=== PATIENT | female | born 1995 | race American Indian/Alaskan Native ===

== ENCOUNTER 2018-12-10 09:33 | Emergency (ER) | payer SELFPAY ==
[2018-12-10 09:42] VITALS: BP 133/74
--- NOTE | 2018-12-10 10:24 | Emergency Department Report ---
Abscess Boil HPI - HPI Chief Complaint: Skin/Abscess/Foreign Body Stated Complaint: RISING BUTTOCK/PAIN Time Seen by Provider: 12/10/18 10:23 Duration: 1 Week Location: Perianal Severity: Mild History: Yes Pain, Yes Previous History, No Fever, No Purulent Drainage, No Numbness, No Foreign Body, No Insect Bite HPI: This is a 23-year-old female who presents to ED with left-sided in the buttock pain and swelling for the past week. Patient denies fevers/chills/nausea vomiting. Patient states that the ball was getting bigger and worsening pain Home Medications: Previous Rx's Medication Instructions Recorded Last Taken Type Clindamycin [Clindamycin CAP] 300 mg PO Q8H #21 cap 12/10/18 Unknown Rx Ibuprofen [Motrin 800 MG tab] 800 mg PO Q8HR PRN #30 tablet 12/10/18 Unknown Rx Allergies/Adverse Reactions: Allergies Allergy/AdvReac Type Severity Reaction Status Date / Time No Known Allergies Allergy Unverified 12/10/18 09:39 ED Review of Systems ROS: Stated complaint: RISING BUTTOCK/PAIN Other details as noted in HPI Comment: All other systems reviewed and negative ED Past Medical Hx - Past Medical History Previous Medical History?: No - Surgical History Past Surgical History?: No - Social History Smoking Status: Never Smoker Substance Use Type: Alcohol, Marijuana - Medications Home Medications: Home Medications Medication Instructions Recorded Confirmed Last Taken Type Clindamycin [Clindamycin CAP] 300 mg PO Q8H #21 cap 12/10/18 Unknown Rx Ibuprofen [Motrin 800 MG tab] 800 mg PO Q8HR PRN #30 tablet 12/10/18 Unknown Rx ED Abscess Boil Physical Exam - Exam General: Vital signs noted. No distress. Alert and acting appropriately. Size: 3 cm Exam: Yes Tenderness, Yes Fluctuance, No Surrounding Cellulites/Erythema, No Lymphangitis, No Crepitation, No Heart Murmur, No Normal Neurologic Exam I & D Note - I & D Note I & D Note: Patient positioned appropriately, 3cc lidocaine with/without epinephrine was used as a local anesthetic. #11 blade scalpal used for single incision. Additional local anesthetic injected into surrounding viable tissue prior to blunt dissection of loculated adhesions. Copius drainage of pus obtained). . Procedure tolerated without complications. ED Course Vital Signs 11/03/19 09:39 Temperature 97.9 F Pulse Rate 104 H Respiratory 20 Rate Blood Pressure 133/74 O2 Sat by Pulse 96 Oximetry Critical care attestation.: If time is entered above; I have spent that time in minutes in the direct care of this critically ill patient, excluding procedure time. ED Medical Decision Making - Medical Decision Making 23-year-old female presents with left buttock abscess. See ID note. Patient tolerated procedure well. She received pain medication in the ED Patient is to go home on a trial of antibiotics and pain medication. Discussed the patient follow-up with primary care physician Referrals given to patient. Vital signs are stable patient is in no acute distress ED Disposition Clinical Impression: Abscess, Left buttock abscess Disposition: TO HOME OR SELFCARE Is pt being admited?: No Does the pt Need Aspirin: No Condition: Stable Instructions: Abscess (ED), Abscess Incision and Drainage (ED) Additional Instructions: Make sure to follow up with the primary care physician as discussed. Take all your medications as you've been prescribed. If you have any worsening symptoms or develop new symptoms please return to ED immediately. Referrals: [facility] [Outside] - 3-5 Days [facility] [Outside] - 3-5 Days Forms: Accompanied Note, Work/School Release Form(ED) Time of Disposition: 12:31
[2018-12-10] MEDS ORDERED: HYDROcodone/ACETAMINOPHEN 5-325 MG TAB PO ONE (10:42)
[2018-12-10] MEDS ORDERED: LIDOCAINE (1%) 10 MG/1 ML VIAL 20 ML MDV INFILTRATI NR (11:00)
== END 2018-12-10 13:00 | disposition home or self-care (01) ==
LOC: ED 09:33
DX: L02.31 Cutaneous abscess of buttock (principal); F12.10 Cannabis abuse, uncomplicated; Z79.899 Other long term (current) drug therapy

== ENCOUNTER 2020-09-09 10:35 | Inpatient (IN) | payer OTHER ==
[2020-09-09] MEDS ORDERED: MAGNESIUM SULFATE 2 GM/50 ML BAG IV ONE ×2 (10:49→10:50)
[2020-09-09] MEDS ORDERED: SODIUM CHLORIDE 0.9% 1000 ML 1,000 ML IV ONE ×2 (10:49→11:38)
[2020-09-09] MEDS ORDERED: NORepinephrine/NS 4 MG-250 ML 4 MG/250 ML BAG IV ONE (10:59)
[2020-09-09] MEDS: NORepinephrine/NS 4 MG-250 ML 4 MG/250 ML BAG IV SCH ×2 (11:05→17:31)
[2020-09-09 11:21] LABS: Hematocrit 37.1 % (30.3-42.9); Hemoglobin 11.6 gm/dl (10.1-14.3); Mean Corpuscular HGB Conc 31 % (30-34); Mean Corpuscular Volume 100 fl (79-97); Platelet Count 191 K/mm3 (140-440); Red Blood Count 3.73 M/mm3 (3.65-5.03)
[2020-09-09 11:32] LABS: INR 1.57 (0.87-1.13)
[2020-09-09 11:33] LABS: Partial Thromboplastin Time 42.5 Sec. (24.2-36.6)
--- NOTE | 2020-09-09 11:34 | Emergency Department Report ---
ED CPR HPI - General Stated Complaint: CARDIAC ARREST Time Seen by Provider: 09/09/20 10:49 Source: family, EMS Mode of arrival: Stretcher Limitations: Altered Mental Status, Physical Limitation - History of Present Illness Initial Comments: 25-year-old female the past medical history of asthma presents to the hospital status post cardiopulmonary arrest. History of present illness obtained from EMS and patient's tim. Last night patient's tim got a call that she was "drunk" at work. Tim obtain a video with patient appearing to be intoxicated with intermittent staring off and falling asleep upright with decreased responsiveness. Patient apparently admitted to drinking alcohol as well as taking ecstasy which she has taken in the past however, has not had this response before. EMS was called by tim last night who came to the scene, was reported she had a elevated blood pressure, and patient answer orientation questions correctly and refused transport to the hospital. Throughout the night patient was snoring and sleeping heavily. Tim checked on her frequently. At 6 AM she noticed a lot of "snot" coming out of her nose and down her neck. Patient her that she showed me appears to be more like fluid. She wiped the area and patient went back to sleep. Patient had a recurrent episode of "snot" at 7 AM. Once again she wiped the area. Tim heard her stop breathing, went to check on her, and found her apneic and pulseless. EMS was called. Patient was in at the scene at 10 AM. She is initially treated with intubation with 7.0 ET tube, Narcan 4 mg, dextrose 25 for low blood sugar, and 50 mg of sodium bicarb. At 10:10 patient received 200 J of voltage for V. fib with return of circulation and pulse at 10:18 AM. Upon arrival patient has intermittent agonal breathing, fixed and dilated pupils, sinus bradycardic rhythm, and is hypot ensive. Stabilization efforts continued. According to tim patient does not have any respiratory symptoms, shortness of breath, chest pain, cough or cold symptoms, nausea, vomiting, diarrhea, and did not receive her Covid vaccine. - Related Data Previous Rx's Medication Instructions Recorded Last Taken Type Ibuprofen [Motrin 800 MG tab] 800 mg PO Q8HR PRN #30 tablet 12/10/18 Unknown Rx Allergies Allergy/AdvReac Type Severity Reaction Status Date / Time No Known Allergies Allergy Unverified 12/10/18 09:39 ED Review of Systems ROS: Stated complaint: CARDIAC ARREST Other details as noted in HPI ED Past Medical Hx - Social History Smoking Status: Never Smoker Substance Use Type: Alcohol, Marijuana - Medications Home Medications: Home Medications Medication Instructions Recorded Confirmed Last Taken Type Ibuprofen [Motrin 800 MG tab] 800 mg PO Q8HR PRN #30 tablet 12/10/18 09/09/20 Unknown Rx ED Physical Exam - Other Other exam information: General: Unresponsive Head: Atraumatic Eyes: Pupils fixed and dilated ENT: Moist mucous membranes, orally intubated with 7.0 ET tube Neck: Normal appearance, no midline tenderness Chest: Intermittent agonal respiration CV: Bradycardia regular rhythm Abdomen: Soft, nondistended Back: Normal inspection Extremity: No deformity, no spontaneous movement Neuro: GCS equals 3 Skin: No rash ED Course Vital Signs 09/09/20 09/09/20 09/09/20 12:38 12:39 12:46 Temperature Pulse Rate 52 L 53 L 49 L Respiratory 4 L 13 10 L Rate Blood Pressure 129/83 132/78 Blood Pressure [Left] O2 Sat by Pulse 100 100 100 Oximetry 09/09/20 09/09/20 09/09/20 13:00 13:16 13:18 Temperature 86.1 F L Pulse Rate 58 L 52 L Respiratory 11 L 11 L Rate Blood Pressure 112/69 111/72 Blood Pressure [Left] O2 Sat by Pulse 100 100 Oximetry 09/09/20 09/09/20 09/09/20 13:30 13:46 14:00 Temperature Pulse Rate 64 65 68 Respiratory 12 11 L 18 Rate Blood Pressure 111/72 108/75 115/80 Blood Pressure [Left] O2 Sat by Pulse 100 100 100 Oximetry 09/09/20 09/09/20 09/09/20 14:16 15:00 15:30 Temperature Pulse Rate 69 69 70 Respiratory 21 28 H 17 Rate Blood Pressure 107/72 113/77 116/86 Blood Pressure [Left] O2 Sat by Pulse 100 100 100 Oximetry 09/09/20 09/09/20 09/09/20 15:40 15:46 16:00 Temperature Pulse Rate 73 75 73 Respiratory 1 L 20 28 H Rate Blood Pressure 116/86 118/89 109/88 Blood Pressure [Left] O2 Sat by Pulse 100 100 100 Oximetry 08/04/2709/09/20 09/09/20 16:16 17:00 17:16 Temperature Pulse Rate 74 79 79 Respiratory 28 H 21 28 H Rate Blood Pressure 117/85 130/76 132/69 Blood Pressure [Left] O2 Sat by Pulse 100 100 99 Oximetry 09/09/20 09/09/20 09/09/20 17:33 17:35 17:46 Temperature 93.6 F L Pulse Rate 80 Respiratory 28 H Rate Blood Pressure 109/76 Blood Pressure [Left] O2 Sat by Pulse 99 100 Oximetry 09/09/20 09/09/20 09/09/20 17:56 18:00 18:30 Temperature Pulse Rate 81 84 Respiratory 25 H 25 H Rate Blood Pressure 102/65 97/66 Blood Pressure [Left] O2 Sat by Pulse 100 99 100 Oximetry 09/09/20 09/09/20 09/09/20 18:46 19:00 19:16 Temperature Pulse Rate 85 83 84 Respiratory 25 H 25 H 25 H Rate Blood Pressure 93/58 89/55 99/58 Blood Pressure [Left] O2 Sat by Pulse 100 100 100 Oximetry 09/09/20 09/09/20 09/09/20 19:30 19:34 19:46 Temperature Pulse Rate 85 86 86 Respiratory 25 H 19 Rate Blood Pressure 99/58 94/58 94/58 Blood Pressure [Left] O2 Sat by Pulse 100 100 99 Oximetry 09/09/20 09/09/20 09/09/20 20:00 20:16 20:30 Temperature Pulse Rate 88 87 90 Respiratory 25 H 25 H 25 H Rate Blood Pressure 90/57 87/53 87/53 Blood Pressure [Left] O2 Sat by Pulse 99 99 99 Oximetry 09/09/20 09/09/20 09/09/20 20:46 20:48 21:00 Temperature Pulse Rate 89 91 H 89 Respiratory 25 H 25 H 25 H Rate Blood Pressure 93/58 93/58 94/58 Blood Pressure [Left] O2 Sat by Pulse 100 100 100 Oximetry 09/09/20 09/09/20 09/09/20 21:16 21:30 21:46 Temperature Pulse Rate 90 89 91 H Respiratory 25 H 25 H 25 H Rate Blood Pressure 90/46 90/46 95/56 Blood Pressure [Left] O2 Sat by Pulse 100 100 100 Oximetry 08/03/21 08/03/21 08/03/21 22:00 22:16 22:30 Temperature Pulse Rate 89 89 90 Respiratory 25 H 25 H 25 H Rate Blood Pressure 90/53 89/52 89/52 Blood Pressure [Left] O2 Sat by Pulse 100 100 100 Oximetry 09/09/20 09/09/20 09/09/20 22:46 23:00 23:16 Temperature Pulse Rate 89 88 89 Respiratory 25 H 25 H 25 H Rate Blood Pressure 99/58 94/54 96/58 Blood Pressure [Left] O2 Sat by Pulse 100 100 100 Oximetry 09/09/20 09/09/20 09/09/20 23:30 23:45 23:59 Temperature Pulse Rate 88 87 Respiratory 25 H Rate Blood Pressure 96/58 96/58 101/58 Blood Pressure [Left] O2 Sat by Pulse 100 99 99 Oximetry 09/10/20 09/10/20 09/10/20 00:01 00:15 00:31 Temperature Pulse Rate 88 88 89 Respiratory 24 25 H 24 Rate Blood Pressure 101/58 96/58 96/58 Blood Pressure [Left] O2 Sat by Pulse 98 98 98 Oximetry 09/10/20 09/10/20 09/10/20 00:45 01:01 01:02 Temperature 97.9 F Pulse Rate 91 H 89 Respiratory 25 H 24 Rate Blood Pressure 92/54 91/59 Blood Pressure [Left] O2 Sat by Pulse 98 99 Oximetry 09/10/20 09/10/20 09/10/20 01:15 01:31 01:43 Temperature Pulse Rate 90 88 Respiratory 25 H 25 H Rate Blood Pressure 101/57 101/57 Blood Pressure [Left] O2 Sat by Pulse 99 99 100 Oximetry 09/10/20 09/10/20 09/10/20 01:45 02:01 02:15 Temperature Pulse Rate 90 89 90 Respiratory 25 H 25 H 25 H Rate Blood Pressure 100/59 100/57 104/57 Blood Pressure [Left] O2 Sat by Pulse 99 99 99 Oximetry 09/10/20 09/10/20 09/10/20 02:31 02:45 03:01 Temperature Pulse Rate 91 H 89 90 Respiratory 25 H 25 H 25 H Rate Blood Pressure 104/57 105/60 106/61 Blood Pressure [Left] O2 Sat by Pulse 99 99 99 Oximetry 09/10/20 09/10/20 09/10/20 03:15 03:31 03:45 Temperature Pulse Rate 90 89 90 Respiratory 25 H 25 H 25 H Rate Blood Pressure 105/59 105/59 96/58 Blood Pressure [Left] O2 Sat by Pulse 99 99 99 Oximetry 09/10/20 09/10/20 09/10/20 04:01 04:15 04:17 Temperature Pulse Rate 88 90 90 Respiratory 25 H 25 H Rate Blood Pressure 105/59 103/56 103/56 Blood Pressure [Left] O2 Sat by Pulse 99 99 99 Oximetry 09/10/20 09/10/20 09/10/20 04:31 04:45 05:01 Temperature Pulse Rate 91 H 83 90 Respiratory 25 H 21 25 H Rate Blood Pressure 103/56 110/59 105/59 Blood Pressure [Left] O2 Sat by Pulse 100 99 99 Oximetry 09/10/20 09/10/20 09/10/20 05:15 05:31 05:45 Temperature Pulse Rate 87 90 91 H Respiratory 25 H 25 H 25 H Rate Blood Pressure 102/57 110/59 113/59 Blood Pressure [Left] O2 Sat by Pulse 99 99 98 Oximetry 09/10/20 09/10/20 09/10/20 06:01 06:15 06:31 Temperature Pulse Rate 90 88 105 H Respiratory 25 H 25 H 22 Rate Blood Pressure 113/59 110/54 110/54 Blood Pressure [Left] O2 Sat by Pulse 98 98 94 Oximetry 09/10/20 09/10/20 09/10/20 06:45 07:01 07:15 Temperature Pulse Rate 88 96 H 93 H Respiratory 20 25 H 25 H Rate Blood Pressure 127/59 125/66 103/58 Blood Pressure [Left] O2 Sat by Pulse 88 90 93 Oximetry 09/10/20 09/10/20 09/10/20 07:31 07:45 08:01 Temperature Pulse Rate 90 87 87 Respiratory 25 H 16 25 H Rate Blood Pressure 103/58 106/58 115/55 Blood Pressure [Left] O2 Sat by Pulse 95 98 97 Oximetry 09/10/20 09/10/20 09/10/20 09:08 09:13 09:54 Temperature Pulse Rate 83 84 Respiratory 25 H 25 H Rate Blood Pressure 107/49 Blood Pressure 107/49 [Left] O2 Sat by Pulse 97 97 Oximetry 09/10/20 09/10/20 09/10/20 10:00 10:16 10:31 Temperature Pulse Rate 79 99 H 87 Respiratory 25 H Rate Blood Pressure 124/49 Blood Pressure [Left] O2 Sat by Pulse 95 Oximetry - Reevaluation(s) Reevaluation #1: 09/09/20 11:00 Initial EKG showed sinus rhythm rate 61 with prolonged QT interval. QTc 639. 2 mg IV magnesium initiated. Patient prepped for central line with right femoral central line placed without complication. Patient treated initial fluid boluses, Levophed support, and placed on ventilator 09/09/20 11:42 I spoke extensively to patient's fianc and mother to obtain additional history of present illness. I also updated them about patient's critical status. The fact that she has fixed and dilated pupils is a poor neurologic predictive factor. They were informed of patient may possibly be brain . Also the fact that patient requires ventilator/respiratory and vasopressor support also poor prognostic factors with high risk of mortality. - Central Line Placement Right Femoral Consent Obtained: emergent situation Time Out Performed: Yes Patient Placed on Monitor/Pulse Ox: Yes MD Prep: mask, gown, gloves Central Line Prep: Chlorhexidine scrub Local Anesthesia Used: Lidocaine 1% Amount of Anesthesia Used (mls): 5 Ultrasound Used for Placement: No Central Line Lumen Inserted: triple Reason for Insertion: Volume Resuscitation Bloods Obtained for Lab: No Central Line Position: good blood return, sutured in place with nyl Dressing Applied: Tegaderm Patient Tolerated Procedure: well ED Medical Decision Making - Lab Data Result diagrams: 09/13/20 04:45 09/13/20 04:45 Lab Results 09/09/20 09/09/20 09/09/20 Range/Units 10:42 10:42 10:42 WBC 9.7 (4.5-11.0) K/mm3 RBC 3.73 (3.65-5.03) M/mm3 Hgb 11.6 (10.1-14.3) gm/dl Hct 37.1 (30.3-42.9) % MCV 100 H (79-97) fl MCH 31 (28-32) pg MCHC 31 (30-34) % RDW 15.0 (13.2-15.2) % Plt Count 191 (140-440) K/mm3 PT (12.2-14.9) Sec. INR (0.87-1.13) APTT (24.2-36.6) Sec. ABG pH (7.350-7.450) pH Units ABG pCO2 mm Hg ABG pO2 (80.0-90.0) mm Hg ABG HCO3 (20.0-26.0) mmol/L ABG O2 Saturation (95.0-99.0) % ABG O2 Content (0.0-44) ABG Base Excess (-2.0-3.0) mmol/L ABG Hemoglobin (12.0-16.0) gm/dl ABG Carboxyhemoglobin (0.0-5.0) % ABG Methemoglobin (0.0-1.5) % Oxyhemoglobin (95.0-99.0) % FiO2 % Sodium 144 (137-145) mmol/L Potassium 5.4 H (3.6-5.0) mmol/L Chloride 99.4 (98-107) mmol/L Carbon Dioxide 17 L (22-30) mmol/L Anion Gap 33 mmol/L BUN 25 H (7-17) mg/dL Creatinine 2.5 H (0.6-1.2) mg/dL Estimated GFR 28 ml/min BUN/Creatinine Ratio 10 % Glucose 205 H (65-100) mg/dL POC Glucose (70-105) mg/dL Lactic Acid (0.7-2.0) mmol/L Calcium 8.5 (8.4-10.2) mg/dL Magnesium (1.7-2.3) mg/dL Total Bilirubin 0.20 (0.1-1.2) mg/dL AST 60 H (5-40) units/L ALT 46 (7-56) units/L Alkaline Phosphatase 90 (35-129) units/L Total Creatine Kinase (30-135) units/L CK-MB (CK-2) (0.0-4.0) ng/mL CK-MB (CK-2) Rel Index (0-4) Troponin T 0.092 H (0.00-0.029) ng/mL Total Protein 5.3 L (6.3-8.2) g/dL Albumin 3.0 L (3.9-5) g/dL Albumin/Globulin Ratio 1.3 % HCG, Qual Negative (Negative) Salicylates (2.8-20.0) mg/dL Acetaminophen (10.0-30.0) ug/mL Plasma/Serum Alcohol (0-0.07) % 09/09/20 09/09/20 09/09/20 Range/Units 10:42 10:42 10:42 WBC (4.5-11.0) K/mm3 RBC (3.65-5.03) M/mm3 Hgb (10.1-14.3) gm/dl Hct (30.3-42.9) % MCV (79-97) fl MCH (28-32) pg MCHC (30-34) % RDW (13.2-15.2) % Plt Count (140-440) K/mm3 PT 19.2 H (12.2-14.9) Sec. INR 1.57 H (0.87-1.13) APTT 42.5 H (24.2-36.6) Sec. ABG pH (7.350-7.450) pH Units ABG pCO2 mm Hg ABG pO2 (80.0-90.0) mm Hg ABG HCO3 (20.0-26.0) mmol/L ABG O2 Saturation (95.0-99.0) % ABG O2 Content (0.0-44) ABG Base Excess (-2.0-3.0) mmol/L ABG Hemoglobin (12.0-16.0) gm/dl ABG Carboxyhemoglobin (0.0-5.0) % ABG Methemoglobin (0.0-1.5) % Oxyhemoglobin (95.0-99.0) % FiO2 % Sodium (137-145) mmol/L Potassium (3.6-5.0) mmol/L Chloride (98-107) mmol/L Carbon Dioxide (22-30) mmol/L Anion Gap mmol/L BUN (7-17) mg/dL Creatinine (0.6-1.2) mg/dL Estimated GFR ml/min BUN/Creatinine Ratio % Glucose (65-100) mg/dL POC Glucose (70-105) mg/dL Lactic Acid 16.60 H* (0.7-2.0) mmol/L Calcium (8.4-10.2) mg/dL Magnesium 3.30 H (1.7-2.3) mg/dL Total Bilirubin (0.1-1.2) mg/dL AST (5-40) units/L ALT (7-56) units/L Alkaline Phosphatase (35-129) units/L Total Creatine Kinase (30-135) units/L CK-MB (CK-2) (0.0-4.0) ng/mL CK-MB (CK-2) Rel Index (0-4) Troponin T (0.00-0.029) ng/mL Total Protein (6.3-8.2) g/dL Albumin (3.9-5) g/dL Albumin/Globulin Ratio % HCG, Qual (Negative) Salicylates (2.8-20.0) mg/dL Acetaminophen (10.0-30.0) ug/mL Plasma/Serum Alcohol (0-0.07) % 09/09/20 09/09/20 09/09/20 Range/Units 10:42 10:42 10:42 WBC (4.5-11.0) K/mm3 RBC (3.65-5.03) M/mm3 Hgb (10.1-14.3) gm/dl Hct (30.3-42.9) % MCV (79-97) fl MCH (28-32) pg MCHC (30-34) % RDW (13.2-15.2) % Plt Count (140-440) K/mm3 PT (12.2-14.9) Sec. INR (0.87-1.13) APTT (24.2-36.6) Sec. ABG pH (7.350-7.450) pH Units ABG pCO2 mm Hg ABG pO2 (80.0-90.0) mm Hg ABG HCO3 (20.0-26.0) mmol/L ABG O2 Saturation (95.0-99.0) % ABG O2 Content (0.0-44) ABG Base Excess (-2.0-3.0) mmol/L ABG Hemoglobin (12.0-16.0) gm/dl ABG Carboxyhemoglobin (0.0-5.0) % ABG Methemoglobin (0.0-1.5) % Oxyhemoglobin (95.0-99.0) % FiO2 % Sodium (137-145) mmol/L Potassium (3.6-5.0) mmol/L Chloride (98-107) mmol/L Carbon Dioxide (22-30) mmol/L Anion Gap mmol/L BUN (7-17) mg/dL Creatinine (0.6-1.2) mg/dL Estimated GFR ml/min BUN/Creatinine Ratio % Glucose (65-100) mg/dL POC Glucose (70-105) mg/dL Lactic Acid (0.7-2.0) mmol/L Calcium (8.4-10.2) mg/dL Magnesium (1.7-2.3) mg/dL Total Bilirubin (0.1-1.2) mg/dL AST (5-40) units/L ALT (7-56) units/L Alkaline Phosphatase (35-129) units/L Total Creatine Kinase 166 H (30-135) units/L CK-MB (CK-2) 3.6 (0.0-4.0) ng/mL CK-MB (CK-2) Rel Index 2.1 (0-4) Troponin T (0.00-0.029) ng/mL Total Protein (6.3-8.2) g/dL Albumin (3.9-5) g/dL Albumin/Globulin Ratio % HCG, Qual (Negative) Salicylates < 0.3 L (2.8-20.0) mg/dL Acetaminophen 5.0 L (10.0-30.0) ug/mL Plasma/Serum Alcohol (0-0.07) % 09/09/20 09/09/20 09/09/20 Range/Units 10:42 11:30 12:28 WBC (4.5-11.0) K/mm3 RBC (3.65-5.03) M/mm3 Hgb (10.1-14.3) gm/dl Hct (30.3-42.9) % MCV (79-97) fl MCH (28-32) pg MCHC (30-34) % RDW (13.2-15.2) % Plt Count (140-440) K/mm3 PT (12.2-14.9) Sec. INR (0.87-1.13) APTT (24.2-36.6) Sec. ABG pH 6.919 L* (7.350-7.450) pH Units ABG pCO2 51.6 mm Hg ABG pO2 127.2 H (80.0-90.0) mm Hg ABG HCO3 10.3 L (20.0-26.0) mmol/L ABG O2 Saturation 96.8 (95.0-99.0) % ABG O2 Content 14.6 (0.0-44) ABG Base Excess -21.7 L (-2.0-3.0) mmol/L ABG Hemoglobin 10.8 L (12.0-16.0) gm/dl ABG Carboxyhemoglobin 2.3 (0.0-5.0) % ABG Methemoglobin 0.4 (0.0-1.5) % Oxyhemoglobin 94.2 L (95.0-99.0) % FiO2 100 % Sodium (137-145) mmol/L Potassium (3.6-5.0) mmol/L Chloride (98-107) mmol/L Carbon Dioxide (22-30) mmol/L Anion Gap mmol/L BUN (7-17) mg/dL Creatinine (0.6-1.2) mg/dL Estimated GFR ml/min BUN/Creatinine Ratio % Glucose (65-100) mg/dL POC Glucose 81 (70-105) mg/dL Lactic Acid (0.7-2.0) mmol/L Calcium (8.4-10.2) mg/dL Magnesium (1.7-2.3) mg/dL Total Bilirubin (0.1-1.2) mg/dL AST (5-40) units/L ALT (7-56) units/L Alkaline Phosphatase (35-129) units/L Total Creatine Kinase (30-135) units/L CK-MB (CK-2) (0.0-4.0) ng/mL CK-MB (CK-2) Rel Index (0-4) Troponin T (0.00-0.029) ng/mL Total Protein (6.3-8.2) g/dL Albumin (3.9-5) g/dL Albumin/Globulin Ratio % HCG, Qual (Negative) Salicylates (2.8-20.0) mg/dL Acetaminophen (10.0-30.0) ug/mL Plasma/Serum Alcohol < 0.01 (0-0.07) % - EKG Data -: EKG Interpreted by Tx EKG shows normal: sinus rhythm, intervals (QTC 639) Rate: normal - Radiology Data Radiology results: report reviewed CHEST 1 VIEW INDICATION / CLINICAL INFORMATION: Cardiac arrest, intubation.. COMPARISON: None. FINDINGS: SUPPORT DEVICES: Appropriate position of endotracheal tube with tip 4.4 cm above the level of the isabella. Gastric tube is present with tip overlying the expected location of the mid/distal stomach. HEART / MEDIASTINUM: No significant abnormality. LUNGS / PLEURA: Lower lobe predominant patchy airspace disease. No pneumothorax. ADDITIONAL FINDINGS: No significant additional findings. IMPRESSION: Appropriate position of endotracheal and gastric tubes. Lower lobe predominant patchy airspace disease, suspected to represent infection, although edema could have a similar appearance. CT head/brain wo con INDICATION / CLINICAL INFORMATION: 25 years Female; ams, s/p cardiac arrest. TECHNIQUE: Routine CT head without contrast. All CT scans at this location are performed using CT dose reduction for ALARA by means of automated exposure control. COMPARISON: None. FINDINGS: BRAIN / INTRACRANIAL CONTENTS: The motion degrades image quality in this intubated patient. However, the brain appears to demonstrate appropriate attenuation on the current study. The bruno- white matter differentiation is maintained. The ventricular system is within normal limits in size and configuration. There is no clear CT evidence of acute intracranial hemorrhage or significant mass effect. ORBITS: No significant abnormality of visualized orbits. SINUSES / MASTOIDS: There is mild opacification with air-fluid levels along the posterior sphenoid sinuses. There is a 1 cm retention cyst along the posterior right maxillary sinus. CRANIOCERVICAL JUNCTION: No significant abnormality. ADDITIONAL FINDINGS: None. IMPRESSION: 1. There is no clear CT evidence of acute intracranial process. - Medical Decision Making 25-year-old female presents to the hospital cardiopulmonary arrest after alcohol and taking a "ecstasy pill" last night. Patient may have aspirated given history of present illness. Patient prolonged period of apnea and pulselessness with ROSC achieved prior to ED arrival. Patient presents requiring ventilator support, pressure support, and with fixed and dilated pupils all poor prognostic factors. Chest x-ray suggestive of infiltrate versus edema. No Covid or infectious symptoms reported questionable aspiration. Patient provided Rocephin, gentamicin, and Flagyl to cover for aspiration pneumonia. Respiratory isolation advised to rule out Covid since patient is not immunized. Patient treated for sepsis/circulatory shock. Bicarb drip initiated for significant acidosis with long QTC. Magnesium provided for prolonged QTC. Stephanie warmer pr ovided for hypothermia. Patient admitted to hospital service with critical care consultation. Poor prognosis and the physician discussed with patient's female fianc and patient's mother. UDS + for cocaine marijuana Critical Care Time: Yes Critical care time in (mins) excluding proc time.: 75 Critical care attestation.: If time is entered above; I have spent that time in minutes in the direct care of this critically ill patient, excluding procedure time. ED Disposition Clinical Impression: Cardiac arrest with successful resuscitation, Acidosis, Shock circulatory, Renal insufficiency, Cocaine abuse, Marijuana use, Hypothermia Disposition: 09 OP ADMIT IP TO THIS HOSP Is pt being admited?: Yes Condition: Critical Time of Disposition: 12:26
[2020-09-09] MEDS ORDERED: LIP THERAPY VASELINE TP PRN (11:35)
[2020-09-09] MEDS ORDERED: MINERAL OIL/PETROLATUM, WHITE OPHTH OINT 3.5 GM OU PRN (11:35)
[2020-09-09 11:46] LABS: ABG Base Excess -21.7 mmol/L (-2.0-3.0); ABG HCO3 10.3 mmol/L (20.0-26.0); ABG Methemoglobin 0.4 % (0.0-1.5); ABG Oxygen Saturation 96.8 % (95.0-99.0); ABG PCO2 51.6 mm Hg; ABG PO2 127.2 mm Hg (80.0-90.0)
--- NOTE | 2020-09-09 11:46 | XRay Report ---
CHEST 1 VIEW INDICATION / CLINICAL INFORMATION: Cardiac arrest, intubation.. COMPARISON: None. FINDINGS: SUPPORT DEVICES: Appropriate position of endotracheal tube with tip 4.4 cm above the level of the car judith. Gastric tube is present with tip overlying the expected location of the mid/distal stomach. HEART / MEDIASTINUM: No significant abnormality. LUNGS / PLEURA: Lower lobe predominant patchy airspace disease. No pneumothorax. ADDITIONAL FINDINGS: No significant additional findings. IMPRESSION: Appropriate position of endotracheal and gastric tubes. Lower lobe predominant patchy airspace disease, suspected to represent infection, although edema coul d have a similar appearance. Signer Name: Jere Pisano MD Signed: 09/09/2020 11:41 AM Workstation Name: [id number]
[2020-09-09 11:59] LABS: ABG PH 6.919 pH Units (7.350-7.450)
[2020-09-09 12:02] LABS: Creatine Kinase MB 3.6 ng/mL (0.0-4.0)
[2020-09-09 12:04] LABS: Calcium 8.5 mg/dL (8.4-10.2)
[2020-09-09] MEDS ORDERED: SODIUM BICARB 8.4% 50 MEQ/50 ML SYRINGE IV ONE (12:04)
[2020-09-09] MEDS ORDERED: AZITHROMYCIN/NS 500 MG/250 ML 500 MG/250 ML BAG IV ONE (12:10)
[2020-09-09] MEDS ORDERED: cefTRIAXone/NS 2 GM/100 ML 2 GM/100 ML BAG IV ONE (12:10)
[2020-09-09] MEDS ORDERED: SODIUM CHLORIDE 0.9% 1000 ML IV SOLN IV ONE (12:10)
[2020-09-09] MEDS ORDERED: metroNIDAZOLE/NS 500 MG/100 ML 500 MG/100 ML BAG IV ONE (12:10)
[2020-09-09] MEDS ORDERED: oxyCODONE /ACETAMINOPHEN 5-325MG TAB PO PRN (12:40)
--- NOTE | 2020-09-09 12:43 | History and Physical Report ---
History of Present Illness Chief complaint: She was not breathing History of present illness: 25 YO Female with Asthma, Obesity presents to ED for evaluation. Patient is intubated and ambulatory support at the time my evaluation anxiety to provide history. Patient history taken from EMS staff, ED staff, as well as patient tim. As per fianc the patient was in her usual state of health overnight while drinking alcohol with concomitant ingestion of ecstasy. Patient was found to be unresponsive. EMS was notified and upon arrival the patient was found to be in distress with vomitus in the oropharynx but refused transport to hospital for evaluation. EMS was renotified after the patient was noted to have absent breath sounds. EMS was notified and upon arrival the patient was found to be apneic and unable to breathe on her own. Patient was intubated in the field. Patient found to be in cardiac arrest. Patient initiated on 6 ACLS protocol and subsequently transported to [facility] for further care and evaluation. Upon arrival to [facility] the patient was found to have signs of anoxic brain injury on exam. Pa tient pupils are fixed and dilated. Patient found to have septic shock. Patient admitted to ICU and initiated on sepsis protocol. Critical care team consulted in ED. Patient found to have poor prognosis. Advanced care planning conducted. No reports of fever, chills, chest pain, palpitation, productive cough, skin rash, recent ill contacts, known exposure to COVID-19. No prior admission for review. No medication listed at time of admission reconciliation. Past History Past Medical History: other (See HPI) Past Surgical History: No surgical history, Other (Reviewed) Social history: single Family history: diabetes, hypertension Medications and Allergies Allergies Allergy/AdvReac Type Severity Reaction Status Date / Time No Known Allergies Allergy Unverified 12/10/18 09:39 Home Medications Medication Instructions Recorded Confirmed Last Taken Type Ibuprofen [Motrin 800 MG tab] 800 mg PO Q8HR PRN #30 tablet 12/10/18 09/09/20 Unknown Rx Active Meds: Active Medications Acetaminophen (Acetaminophen 325 Mg Tab) 650 mg PO Q6H PRN PRN Reason: Pain MILD(1-3)/Fever >100.5/CHERRY Famotidine (Famotidine 20 Mg/2 Ml Inj) 20 mg IV BID LORENE Hydromorphone HCl (Hydromorphone 1 Mg/1 Ml Inj) 0.5 mg IV Q12H PRN PRN Reason: Pain , Severe (7-10) Hydrophilic Ointment (Lip Therapy Vaseline) 1 applic TP Q2HR PRN PRN Reason: Dry Lips Norepinephrine (Levophed Drip 4 Mg/Ns 250 Ml) 4 mg in 250 mls @ 7.5 mls/hr IV TITR LORENE; Protocol Sodium Bicarbonate 150 meq/ (Dextrose) 1,150 mls @ 125 mls/hr IV DIRECT LORENE Metronidazole (Flagyl 500 Mg/100 Ml) 500 mg in 100 mls @ 100 mls/hr IV ONCE ONE; Protocol Stop: 09/09/20 13:09 Last Admin: 09/09/20 12:35 Dose: 100 mls/hr Documented by: Azithromycin (Zithromax/Ns) 500 mg in 250 mls @ 250 mls/hr IV ONCE ONE; Prot ocol Stop: 09/09/20 13:09 Last Admin: 09/09/20 12:29 Dose: 250 mls/hr Documented by: Multi-Ingred Cream/Lotion/Oil/Oint (Mineral Oil/Petrolatum, White Ophth Oint 3.5 Gm) 1 applic OU Q4HR PRN PRN Reason: Dry Eye(s) Oxycodone/Acetaminophen (Oxycodone /Acetaminophen 5-325mg Tab) 1 tab PO Q12H P RN PRN Reason: Pain, Moderate (4-6) Senna/Docusate Sodium (Sennosides/Docusate Sodium 8.6/50 Mg Tab) 1 tab FEEDTUBE BID LORENE Sodium Chloride (Sodium Chloride 0.9% 10 Ml Flush Syringe) 10 ml IV BID LORENE Sodium Chloride (Sodium Chloride 0.9% 10 Ml Flush Syringe) 10 ml IV PRN PRN PRN Reason: LINE FLUSH Review of Systems ROS unobtainable: due to endotracheal tube, due to mental status Exam - Constitutional General appearance: Present: severe distress, obese - EENT Eyes: Present: mydriasis ENT: hearing decreased - Neck Neck: Present: supple, normal ROM - Respiratory Respiratory effort: labored Respiratory: bilateral: diminished, rhonchi - Cardiovascular Heart Sounds: Present: S1 & S2. Absent: rub, click - Extremities Extremities: no ischemia Peripheral Pulses: abnormal (Capillary refill greater than 3.5 seconds) - Abdominal General gastrointestinal: Present: soft, non-distended Female genitourinary: Present: normal - Integumentary Integumentary: Present: clear, dry - Musculoskeletal Musculoskeletal: generalized weakness - Psychiatric Psychiatric: no appropriate mood/affect, no intact judgment & insight, no memory intact - Neurologic Neurologic: no CNII-XII intact, focal deficits, no moves all extremities, no gait normal - Allied Health Allied health notes reviewed: case management HEART Score - HEART Score Troponin: Troponin T 0.092 ng/mL (0.00-0.029) H 09/09/20 10:42 Results - Labs CBC & Chem 7: 09/09/20 10:42 09/09/20 14:31 Labs: Abnormal lab results 09/09/20 09/09/20 09/09/20 Range/Units 10:42 10:42 10:42 MCV 100 H (79-97) fl PT 19.2 H (12.2-14.9) Sec. INR 1.57 H (0.87-1.13) APTT 42.5 H (24.2-36.6) Sec. ABG pH (7.350-7.450) pH Units ABG pO2 (80.0-90.0) mm Hg ABG HCO3 (20.0-26.0) mmol/L ABG Base Excess (-2.0-3.0) mmol/L ABG Hemoglobin (12.0-16.0) gm/dl Oxyhemoglobin (95.0-99.0) % Potassium 5.4 H (3.6-5.0) mmol/L Carbon Dioxide 17 L (22-30) mmol/L BUN 25 H (7-17) mg/dL Creatinine 2.5 H (0.6-1.2) mg/dL Glucose 205 H (65-100) mg/dL Lactic Acid (0.7-2.0) mmol/L Magnesium (1.7-2.3) mg/dL AST 60 H (5-40) units/L Total Creatine Kinase (30-135) units/L Troponin T 0.092 H (0.00-0.029) ng/mL Total Protein 5.3 L (6.3-8.2) g/dL Albumin 3.0 L (3.9-5) g/dL Salicylates (2.8-20.0) mg/dL Acetaminophen (10.0-30.0) ug/mL 09/09/20 09/09/20 09/09/20 Range/Units 10:42 10:42 10:42 MCV (79-97) fl PT (12.2-14.9) Sec. INR (0.87-1.13) APTT (24.2-36.6) Sec. ABG pH (7.350-7.450) pH Units ABG pO2 (80.0-90.0) mm Hg ABG HCO3 (20.0-26.0) mmol/L ABG Base Excess (-2.0-3.0) mmol/L ABG Hemoglobin (12.0-16.0) gm/dl Oxyhemoglobin (95.0-99.0) % Potassium (3.6-5.0) mmol/L Carbon Dioxide (22-30) mmol/L BUN (7-17) mg/dL Creatinine (0.6-1.2) mg/dL Glucose (65-100) mg/dL Lactic Acid 16.60 H* (0.7-2.0) mmol/L Magnesium 3.30 H (1.7-2.3) mg/dL AST (5-40) units/L Total Creatine Kinase 166 H (30-135) units/L Troponin T (0.00-0.029) ng/mL Total Protein (6.3-8.2) g/dL Albumin (3.9-5) g/dL Salicylates (2.8-20.0) mg/dL Acetaminophen (10.0-30.0) ug/mL 09/09/20 09/09/20 09/09/20 Range/Units 10:42 10:42 11:30 MCV (79-97) fl PT (12.2-14.9) Sec. INR (0.87-1.13) APTT (24.2-36.6) Sec. ABG pH 6.919 L* (7.350-7.450) pH Units ABG pO2 127.2 H (80.0-90.0) mm Hg ABG HCO3 10.3 L (20.0-26.0) mmol/L ABG Base Excess -21.7 L (-2.0-3.0) mmol/L ABG Hemoglobin 10.8 L (12.0-16.0) gm/dl Oxyhemoglobin 94.2 L (95.0-99.0) % Potassium (3.6-5.0) mmol/L Carbon Dioxide (22-30) mmol/L BUN (7-17) mg/dL Creatinine (0.6-1.2) mg/dL Glucose (65-100) mg/dL Lactic Acid (0.7-2.0) mmol/L Magnesium (1.7-2.3) mg/dL AST (5-40) units/L Total Creatine Kinase (30-135) units/L Troponin T (0.00-0.029) ng/mL Total Protein (6.3-8.2) g/dL Albumin (3.9-5) g/dL Salicylates < 0.3 L (2.8-20.0) mg/dL Acetaminophen 5.0 L (10.0-30.0) ug/mL Assessment and Plan - Patient Problems (1) Sepsis Current Visit: Yes Status: Acute Plan to address problem: Sepsis protocol: CBC, CMP, chest x-ray, IV antibiotic therapy, IV fluid resuscitation therapy, monitor urine output every shift, IV pressor support, serial lactic acid level, maintain mean arterial pressure greater than equal 65, blood culture. The high probability of a clinically significant, sudden or life threatening deterioration of the [cardiac, pulmonary, renal, neuro] system(s) required my f ull and direct attention, intervention and personal management. The aggregate critical care time was [95] minutes. This time is in addition to time spent performing reported procedures but includes the following: [x] Data Review and interpretation [x] Patient assessment and monitoring of vital signs [x] Documentation [x] Medication orders and management (2) Acute hypoxemic respiratory failure Current Visit: Yes Status: Acute Plan to address problem: Patient intubated and ambulatory support, wean vent as tolerated, critical care team consulted in ED, spontaneous breathing trial daily, daily ABG, chest x-ray, (3) Metabolic acidosis Current Visit: Yes Status: Acute Plan to address problem: IV fluid resuscitation therapy, IV bicarbonate therapy, supportive care, BMP, repeat BMP in a.m. (4) Toxic metabolic encephalopathy Current Visit: Yes Status: Acute Plan to address problem: CT head, neuro check, treat sepsis, supportive care, IV fluid resuscitation therapy, serial lactic acid level. (5) Cardiac arrest Current Visit: Yes Status: Acute Plan to address problem: Patient treated" with ACLS protocol with eventual return of perfusing cardiac rhythm. (6) Anoxic brain injury Current Visit: Yes Status: Acute Plan to address problem: CT head, neuro check, patient has poor prognosis. Patient pupils fixed and dilated upon arrival to ED. (7) Aspiration pneumonia Current Visit: Yes Status: Acute Plan to address problem: Pneumonia protocol: Chest x-ray, CBC, CMP, IV antibiotic therapy, wean vent as tolerated. (8) DVT prophylaxis Current Visit: Yes Status: Acute Plan to address problem: SCD to bilateral lower extremities while in bed, prophylactic anticoagulation (9) Advance care planning Current Visit: Yes Status: Acute Plan to address problem: Disease education conducted, care plan discussed, diagnosis discussed, prognosis discussed, patient family knowledge understanding patient has poor prognosis. Pending repeat family meeting. Patient is full code, +30 minutes.
[2020-09-09] MEDS ORDERED: SODIUM BICARBONATE 150 MEQ in DEXTROSE 5% IN WATER 1,000 ML IV SCH (13:00)
[2020-09-09] MEDS ORDERED: HYDROmorphone 1 MG/1 ML INJ IV PRN (13:00)
[2020-09-09] MEDS ORDERED: ACETAMINOPHEN 325 MG TAB PO PRN (13:00)
--- NOTE | 2020-09-09 13:25 | Cat Scan Report ---
CT head/brain wo con INDICATION / CLINICAL INFORMATION: 25 years Female; ams, s/p cardiac arrest. TECHNIQUE: Routine CT head without contrast. All CT scans at this location are performed using CT dos e reduction for ALARA by means of automated exposure control. COMPARISON: None. FINDINGS: BRAIN / INTRACRANIAL CONTENTS: The motion degrades image quality in this intubated patient. However, the brain appears to demonstrate appropriate attenuation on the current study. The bruno-white matter differentiation is maintained. The ventricular system is within normal limits in size and configurati on. There is no clear CT evidence of acute intracranial hemorrhage or significant mass effect. ORBITS: No significant abnormality of visualized orbits. SINUSES / MASTOIDS: There is mild opacification with air-fluid levels along the posterior sphenoid si nuses. There is a 1 cm retention cyst along the posterior right maxillary sinus. CRANIOCERVICAL JUNCTION: No significant abnormality. ADDITIONAL FINDINGS: None. IMPRESSION: 1. There is no clear CT evidence of acute intracranial process. Signer Name: Jere Asif MD Signed: 09/09/2020 1:21 PM Workstation Name: [id number]
[2020-09-09 14:48] LABS: Amphetamine Screen,Urine Negative; Benzodiazepines Screen,Urine Negative; Methadone Screen,Urine Negative; Opiate Screen,Urine Negative
--- NOTE | 2020-09-09 14:53 | Consultation ---
History of Present Illness Consult date: 09/09/20 Requesting physician: HARRY GROVER Reason for consult: other (Cardiac Arrest with ROSC) History of present illness: PULMONARY/CCM CONSULT NOTE (Full dictation # [id number]) Please see dictated notes for full details Medications and Allergies Allergies Allergy/AdvReac Type Severity Reaction Status Date / Time No Known Allergies Allergy Unverified 12/10/18 09:39 Home Medications Medication Instructions Recorded Confirmed Last Taken Type Ibuprofen [Motrin 800 MG tab] 800 mg PO Q8HR PRN #30 tablet 12/10/18 09/09/20 Unknown Rx Active Meds: Active Medications Acetaminophen (Acetaminophen 325 Mg Tab) 650 mg PO Q6H PRN PRN Reason: Pain MILD(1-3)/Fever >100.5/CHERRY Famotidine (Famotidine 20 Mg/2 Ml Inj) 20 mg IV BID LORENE Hydromorphone HCl (Hydromorphone 1 Mg/1 Ml Inj) 0.5 mg IV Q12HR PRN PRN Reason: Pain , Severe (7-10) Hydrophilic Ointment (Lip Therapy Vaseline) 1 applic TP Q2HR PRN PRN Reason: Dry Lips Norepinephrine (Levophed Drip 4 Mg/Ns 250 Ml) 4 mg in 250 mls @ 7.5 mls/hr IV TITR LORENE; Protocol Last Titration: 09/09/20 11:40 Dose: 10 mcg/min, 37.5 mls/hr Documented by: Sodium Bicarbonate 150 meq/ (Dextrose) 1,150 mls @ 125 mls/hr IV DIRECT LORENE Last Admin: 09/09/20 13:32 Dose: 125 mls/hr Documented by: Multi-Ingred Cream/Lotion/Oil/Oint (Mineral Oil/Petrolatum, White Ophth Oint 3.5 Gm) 1 applic OU Q4HR PRN PRN Reason: Dry Eye(s) Oxycodone/Acetaminophen (Oxycodone /Acetaminophen 5-325mg Tab) 1 tab PO Q12H PRN PRN Reason: Pain, Moderate (4-6) Senna/Docusate Sodium (Sennosides/Docusate Sodium 8.6/50 Mg Tab) 1 tab FEEDTUBE BID LORENE Sodium Chloride (Sodium Chloride 0.9% 10 Ml Flush Syringe) 10 ml IV BID LORENE Sodium Chloride (Sodium Chloride 0.9% 10 Ml Flush Syringe) 10 ml IV PRN PRN PRN Reason: LINE FLUSH Physical Examination Vital signs: Vital Signs Pulse Resp BP Pulse Ox 52 L 4 L 129/83 100 09/09/20 12:38 09/09/20 12:38 09/09/20 12:38 09/09/20 12:38 Results - Laboratory Findings CBC and BMP: 09/09/20 10:42 09/09/20 10:42 ABG ABG pH 6.919 pH Units (7.350-7.450) L* 09/09/20 11:30 ABG pCO2 51.6 mm Hg 09/09/20 11:30 ABG pO2 127.2 mm Hg (80.0-90.0) H 09/09/20 11:30 ABG O2 Saturation 96.8 % (95.0-99.0) 09/09/20 11:30 PT/INR, D-dimer PT 19.2 Sec. (12.2-14.9) H 09/09/20 10:42 INR 1.57 (0.87-1.13) H 09/09/20 10:42 Abnormal lab findings: Abnormal Labs 09/09/20 09/09/20 09/09/20 10:42 10:42 10:42 MCV 100 H PT 19.2 H INR 1.57 H APTT 42.5 H ABG pH ABG pO2 ABG HCO3 ABG Base Excess ABG Hemoglobin Oxyhemoglobin Potassium 5.4 H Carbon Dioxide 17 L BUN 25 H Creatinine 2.5 H Glucose 205 H Lactic Acid Magnesium AST 60 H Total Creatine Kinase Troponin T 0.092 H Total Protein 5.3 L Albumin 3.0 L Salicylates Acetaminophen 09/09/20 09/09/20 09/09/20 10:42 10:42 10:42 MCV PT INR APTT ABG pH ABG pO2 ABG HCO3 ABG Base Excess ABG Hemoglobin Oxyhemoglobin Potassium Carbon Dioxide BUN Creatinine Glucose Lactic Acid 16.60 H* Magnesium 3.30 H AST Total Creatine Kinase 166 H Troponin T Total Protein Albumin Salicylates Acetaminophen 09/09/20 09/09/20 09/09/20 10:42 10:42 11:30 MCV PT INR APTT ABG pH 6.919 L* ABG pO2 127.2 H ABG HCO3 10.3 L ABG Base Excess -21.7 L ABG Hemoglobin 10.8 L Oxyhemoglobin 94.2 L Potassium Carbon Dioxide BUN Creatinine Glucose Lactic Acid Magnesium AST Total Creatine Kinase Troponin T Total Protein Albumin Salicylates < 0.3 L Acetaminophen 5.0 L
[2020-09-09 15:01] LABS: Bilirubin,Urine NEG (Negative); Blood,Urine NEG (Negative); Color,Urine Yellow (Yellow); Mucus,Urine 3+ /HPF
[2020-09-09 15:10] LABS: Cannabinoid Screen,Urine PRESUMPTIVE POSITIVE; Cocaine Screen,Urine PRESUMPTIVE POSITIVE
[2020-09-09 15:39] LABS: C-Reactive Protein 3.8 mg/dL (0.00-1.30)
[2020-09-09 16:00] LABS: Chol/HDL Ratio 2.93 %
[2020-09-09 17:16] LABS: ABG Base Excess -8.3 mmol/L (-2.0-3.0); ABG HCO3 17.9 mmol/L (20.0-26.0); ABG Methemoglobin 0.3 % (0.0-1.5); ABG Oxygen Saturation 98.6 % (95.0-99.0); ABG PCO2 39.1 mm Hg; ABG PH 7.278 pH Units (7.350-7.450); ABG PO2 143.7 mm Hg (80.0-90.0)
[2020-09-09 17:34] LABS: Total Cells Counted 100
[2020-09-09 17:35] LABS: Band Neutrophils # (Manual) 1.1 K/mm3; Myelocytes # (Manual) 0.1 K/mm3; Platelet Estimate Consistent w Auto; RBC Morphology Normal
--- NOTE | 2020-09-09 18:15 | Electrocardiograph Report ---
[facility] Test Date: 2020-09-09 Test Time: 10:43:25 Pat Name: SUNITA DURAND Department: Room: [place] [address] Gender: F Candy Dipper Hand: [birth year] : 1995 Requested By: CLIVE VAUGHN Order Number: [id number] Reading MD: Luana Beckwith Measurements Intervals [place] Rate: 61 P: 19 NC: 172 QRS: 68 QRSD: 102 T: 25 QT: 631 QTc: 639 Interpretive Statements Sinus rhythm Nonspecific ST abnormality Prolonged QT interval No previous ECG available for comparison Electronically Signed On 09-09-2020 18:14:29 EDT by Luana Beckwith
[2020-09-10] MEDS: HEPARIN 5,000 UNIT/1 ML VIAL SUB-Q SCH ×3 (00:29→22:12)
[2020-09-10] MEDS: SENNOSIDES/DOCUSATE SODIUM 8.6/50 MG TAB FEEDTUBE SCH ×3 (00:30→22:13)
[2020-09-10] MEDS: FAMOTIDINE 20 MG/2 ML INJ IV SCH ×3 (00:30→22:12)
--- NOTE | 2020-09-10 00:52 | Consultation ---
DATE OF CONSULTATION: 09/09/2020 PULMONARY CRITICAL CARE CONSULTATION CONSULTING PHYSICIAN: Dr. Keith Blackburn. REASON FOR CONSULTATION: Cardiac arrest with return of spontaneous circulation, acute respiratory failure, on mechanical ventilatory support. CHIEF COMPLAINT AND HISTORY OF PRESENT ILLNESS: The patient is a now 25-year-old female, obese with past medical history significant for a diagnosis of asthma, presented to the hospital with status post cardiopulmonary arrest. According to the patient's fiance, the patient called her fiance last night that she was drunk at work. The finance apparently had a video with the patient appearing to be intoxicated with intermittent staring off and falling sleep upright with decreased responsiveness. This is based on the review of the Emergency Room doctor's notes. The patient admitted to drinking alcohol. EMS was called by her fiance the night before presentation in the ER due to elevated blood pressure. The patient answer the orientation questions correctly and refused transport to the hospital. The patient was snoring and sleeping heavily through the night. Rocio reportedly checked on her frequently at 6:00 a.m., she noticed a lot of "snot" coming out of her nose and down her neck. She wiped her mouth and went back to sleep, again she came back about an hour later and found the same kind of expectoration and then rocio reportedly had her stop breathing went to check on her and found her apneic and pulseless. EMS was called. She was intubated and received Narcan, received dextrose for low blood sugar and received sodium bicarbonate. She was defibrillated for ventricular fibrillation with return of spontaneous circulation around 1018 hours, was about 18 minutes into resuscitative efforts. In the ER, the patient had agonal breathing, fixed and dilated pupils at that time, sinus saul. She was hypotensive. She was stabilized in the Emergency Room. We are asked to assist with management. When I stopped by to see her, she was resting in bed. She was on the mechanical ventilator. I believe she was PRVC AC mode, tidal volume 450, rate of 28 and PEEP of 5 with 100% FIO2, O2 sats 100%. She was not overbreathing the ventilator. She was nonresponsive in terms of being arousable. She had some decerebrate type posturing to a sternal rub. Now with regard to the patient's tobacco use history, she is described as a never smoker, but does drink alcohol and takes marijuana. The above is as much of the history of presentation as I have. PAST MEDICAL HISTORY: Asthma. She is obese. PAST SURGICAL HISTORY: Unknown. MEDICATIONS: She was on at the time I stopped by to see were reviewed, pertinent medications include the following: Tylenol 650 mg p.o. q.6 hours p.r.n. mild pain or fevers, Pepcid 20 mg IV b.i.d., Dilaudid 0.5 mg IV q.12 hours p.r.n. severe pain, artificial tears to her eyes q.4 hours p.r.n. dry eyes, Levophed drip I believe it was going at 5 mcg per minute, Percocet 5/325 one tablet p.o. q.12 hours p.r.n. moderate pain, senna and docusate 1 tablet p.o. b.i.d., bicarbonate drip was going at 125 mL per hour, 150 mEq of sodium bicarbonate per liter of dextrose. She had received a shot of Rocephin and azithromycin earlier. ALLERGIES: No known drug allergies. DIET: Obese lady, acute weight loss or gain history is unknown. FAMILY AND SOCIAL HISTORY: Apparently lives in the community. She drinks alcohol. They denied tobacco use or abuse. Family history is otherwise unknown. REVIEW OF SYSTEMS: Unobtainable secondary to the patient's medical and mental condition since she has been here. No gross hematochezia or melena, no gross hematuria, no hematemesis, no bloody tracheal secretions, no witnessed seizures. Review of systems otherwise unobtainable or as in the body of history above. PHYSICAL EXAMINATION: VITAL SIGNS: On presentation, she had a rectal temperature of 86.1 degrees Fahrenheit, pulse of 52, respiratory rate was 4, blood pressure 129/83, O2 sats 100% presumably on the above-mentioned vent settings. GENERAL: She is a young, obese female. Normocephalic on the mechanical ventilator without significant patient-ventilator dyssynchrony. HEAD, EYES, EARS, NOSE AND THROAT: Anicteric. No conjunctival erythema. Oropharynx was moist. ET tube was taped at the lips around 24 cm. NECK: No gross jugular venous distention, no thyromegaly. Grossly, there were no palpable lymph nodes in the supraclavicular or submandibular lymph node chains. She does have a large neck circumference. LUNGS: Auscultation of both lung last are unremarkable. Good bilateral breath sounds. No wheezing. HEART: Sounds 1 and 2 are heard at the time of my evaluation, regular rate and rhythm without overt rubs or murmurs. ABDOMEN: Soft, full, protuberant. Bowel sounds are positive, nontender, no palpable hepatosplenomegaly. EXTREMITIES: Without overt digital clubbing or cyanosis, no pedal edema. Pedal pulses are 2+ bilaterally. NEUROLOGIC: Pupils are equal, round, about 3 mm, sluggishly reactive to light. Extraocular muscle movements could not be assessed. She had a decerebrate posturing to a sternal rub. Otherwise, no spontaneous movements. No significant hypnic or myoclonic type jerks. SKIN: Normal turgor without overt cellulitis or rash in the areas I examined. Please see the wound care nurses' notes for full description of her skin. PSYCHIATRIC: Mood and affect could not be assessed. LABORATORY DATA: From my review are as follows: White cell count 9700, hemoglobin 11.6, hematocrit 37.1, platelet count 191. INR 1.57. Venous blood gas at presentation showed a pH of 6.92, pCO2 of 52, pO2 of 127, now is on 100% FIO2. Vent settings otherwise unknown. Serum sodium 144, potassium 5.4, chloride 99, bicarbonate 17, BUN 25, creatinine 2.5, glucose 205. Lactic acid level was 16.6, is down to 7.20. Magnesium 3.3. Ferritin elevated at 1995. AST was up at 60. Otherwise, liver function tests essentially within normal limits. Albumin was low at 3.0. Troponin 0.092. Urine test was negative. Urinalysis was unremarkable. She did have some white cells per high power field, negative nitrites and leukocyte esterase. Urine drug screen was presumptive positive for cocaine and marijuana. Aspirin, Tylenol and alcohol levels were nondetectable. No microbiology studies for my review. Chest x-ray shows ET tube in good position, normal cardiovascular silhouette, mild alveolar type ____ bilaterally, perhaps mild interstitial edema versus possible atypical pneumonia. A CT head showed no acute process. ASSESSMENT: 1. Acute respiratory failure, on mechanical ventilatory support, acute hypoxemic respiratory failure, on mechanical ventilatory support. 2. Cardiac arrest with return of spontaneous circulation. 3. Bilateral pneumonia. 4. Person under investigation for COVID-19 infection. 5. Obesity. 6. Drug abuse and overdose. 7. Severe metabolic acidosis. 8. Hypercapnia. 9. Hyperkalemia. 10. Acute kidney injury, possibly on chronic. 11. Lactic acidosis. 12. Elevated serum ferritin. 13. Elevated serum troponin. 14. Oropharyngeal dysphagia. PLAN: She certainly needs to be a person under investigation for COVID-19 infection. She will be kept in contact in airborne isolation. No further interventions until we get the results back COVID-19 test will be sent. She will remain on mechanical ventilator. I will repeat the arterial blood gas now and make changes based on the result. For now, we will continue the hyperventilation to compensate for the severe metabolic acidosis as well as also treat the respiratory component. Oxygen will be weaned to keep sats greater than or equal to about 92%. Aspiration precautions will be maintained. I do agree with empiric community-acquired pneumonia therapy. Infectious Disease consultation will be of benefit. Procalcitonin level, ____ levels will be ordered and trended as necessary to aid clinical decision making. Enteral nutrition will be the feeding modality of choice. Vasopressors will be weaned to keep mean arterial pressures greater than or equal to about 65 mmHg. She is appropriately on GI prophylaxis, is not out of the ream of possibility that this is a venous thromboembolic disorder related decompensation. In light of her renal failure, we will hold on a CT angiogram of her chest, but will get bilateral lower extremity Dopplers. Nephrology consultation will be of benefit. Urine electrolytes will be sent and addressed as necessary. I will defer to management of the hyperkalemia to the job coaching at this point. ACS workup will be appropriate. She is appropriately on GI prophylaxis. I will be putting her on DVT prophylaxis with heparin. Flu and pneumonia vaccination will be addressed per protocol. Further interventions will depend on her progress through this hospitalization. Neurology consultation is appropriate. Prognosis is guarded for neurologic recovery. Dilated pupils at presentation may have been related to the administration of epinephrine and resuscitative efforts. Thank you very much for the consult. We will follow along and make further recommendations as picture progresses/becomes clearer. She is critically ill on life-sustaining interventions including mechanical ventilatory support at very high risk of from cardiopulmonary and neurologic and renal system decompensation. At this time, I was spent about 35-40 minutes of critical care time without overlap and excluding any procedural time that may be necessary. TID: [id number] RECEIPT: [id number] GEORGINA/CHRISTO
[2020-09-10 05:37] LABS: Basophils % (Auto) 0.1 % (0.0-1.8); Eosinophils % (Auto) 0.1 % (0.0-4.3); Hematocrit 32.5 % (30.3-42.9); Hemoglobin 11.5 gm/dl (10.1-14.3); Lymphocytes # (Auto) 0.9 K/mm3 (1.2-5.4); Mean Corpuscular HGB Conc 35 % (30-34); Mean Corpuscular Volume 89 fl (79-97); Monocytes # (Auto) 0.5 K/mm3 (0.0-0.8); Monocytes % (Auto) 6.1 % (0.0-7.3); Platelet Count 197 K/mm3 (140-440); Red Blood Count 3.64 M/mm3 (3.65-5.03); Red Cell Distribution Width 13.7 % (13.2-15.2)
[2020-09-10 06:02] LABS: Calcium 7.2 mg/dL (8.4-10.2)
[2020-09-10] MEDS ORDERED: fentaNYL DRIP Premix 2,000 MCG/100 ML BAG IV ONE (06:23)
[2020-09-10] MEDS: fentaNYL DRIP Premix 2,000 MCG/100 ML BAG IV SCH ×3 (06:30→20:33)
[2020-09-10] MEDS ORDERED: fentaNYL 100 MCG/2 ML INJ IV PRN (06:34)
--- NOTE | 2020-09-10 08:25 | XRay Report ---
CHEST - 1 VIEW 0817 hours INDICATION: follow up respiratory failure COMPARISON: Yesterday FINDINGS: Support devices: Stable support device positioning. Heart: Stable cardiomediastinal silhouette. Lungs/pleura: There is slightly decreased inspiration but bilateral lung opacities or congestive dia nges appear decreased by 25-50%. No pleural effusion or pneumothorax. Additional findings: None. IMPRESSION: Mild improvement as described. Signer Name: Jona Vang Jr, MD Signed: 09/10/2020 8:21 AM Workstation Name: [id number]
[2020-09-10] MEDS ORDERED: SODIUM BICARBONATE 325 MG TAB FEEDTUBE PRN (11:14)
[2020-09-10] MEDS ORDERED: SIMPLE SYRUP 15 ML FEEDTUBE PRN ×2 (11:14)
[2020-09-10] MEDS ORDERED: LIPASE 10,500/PROTEASE 25,000/AMYLASE 43,750 (UNITS) DR CAP FEEDTUBE PRN (11:14)
[2020-09-10] MEDS ORDERED: D5W/0.9% NACL 1,000 ML IV SCH (13:00)
--- NOTE | 2020-09-10 15:34 | Progress Note ---
Assessment and Plan Acute hypoxemic respiratory failure on MVS Cardiac arrest with return of spontaneous circulation Bilateral pneumonia Person under investigation for COVID-19 infection Obesity Drug abuse and overdose Severe metabolic acidosis Hypercapnia Hyperkalemia Acute kidney injury, possibly on chronic Lactic acidosis Elevated serum ferritin Elevated serum troponin Oropharyngeal dysphagia - discontinue Ventura catheter - neurology Consult - begin enteral nutrition - continue Daily SAT and SBT assessment as tolerated - continue to wean supplemental oxygen for target O2 sat's > 90% acutely - VAP bundle addressed - continue lung protective strategies - continue bronchodilators with pulmonary hygiene per RT - wean per pulmonary driven protocols otherwise - continue accuchecks with glycemic control per SSI (While critically ill target blood glucose of 140-180 mg/dL; avoid hypoglycemia) - sedation prn for target RASS 0 to -1 - avoid nephrotoxins, renally dose all medications - continue to avoid benzodiazepine's, reduce the possibility of delirium - completed AB's per ID rec's - prn analgesia per CPOT score - Maintenance of sleep-wake cycle, avoid delirium - enteral nutritional support at goal rate as tolerated - G.I. & VTE prophylaxis - PT/OT/ROM exercises - continue mobility protocols for pressure ulcer prophylaxis - Monitor hemodynamics closely - continue other care per attending / other consultants - discharge planning ongoing concurrently COVID SPECIFIC INTERVENTIONS - COVID-19 PCR negative .... Re-evaluate in am & prn CONDITION: CRITICAL PROGNOSIS: GUARDED CODE STATUS: FULL CODE The high probability of a clinically significant, sudden or life-threatening deterioration of the [respiratory, cardiovascular & neurologic] system(s) required my full and direct attention, intervention and personal management. The aggregate critical care time was [31] minutes without overlap. Time includes spent on; [x] Data Review and interpretation [x] Patient assessment and monitoring of vital signs [x] Documentation [x] Medication orders and management Subjective Date of service: 09/10/20 Principal diagnosis: Acute hypoxemic resp failure; Cardiac arrest with ROSC; Pneumonia; ANGELICA Interval history: Patient is seen today for: Acute hypoxemic respiratory failure; Cardiac arrest with ROSC; Pneumonia; ANGELICA Seen and examined at bedside; 24hour events reviewed; nursing and respiratory care staff consulted; no adverse overnight events reported to me; resting in bed; appears to be following simple commands and was agitated and moving all ex tremities during SAT earlier per RN; no emesis or overt aspiration Objective Vital Signs - 12hr 0809/10/20 09/10/20 03:45 04:01 04:15 Pulse Rate 90 88 90 Pulse Rate [ From Monitor] Respiratory 25 H 25 H 25 H Rate Blood Pressure 96/58 105/59 103/56 Blood Pressure [Left] O2 Sat by Pulse 99 99 99 Oximetry 09/10/20 09/10/20 09/10/20 04:17 04:31 04:45 Pulse Rate 90 91 H 83 Pulse Rate [ From Monitor] Respiratory H 21 Rate Blood Pressure 103/56 103/56 110/59 Blood Pressure [Left] O2 Sat by Pulse 99 100 99 Oximetry 09/10/20 09/10/20 09/10/20 05:01 05:15 05:31 Pulse Rate 90 87 90 Pulse Rate [ From Monitor] Respiratory 25 H 25 H 25 H Rate Blood Pressure 105/59 102/57 110/59 Blood Pressure [Left] O2 Sat by Pulse 99 99 99 Oximetry 09/10/20 09/10/20 09/10/20 05:45 06:01 06:15 Pulse Rate 91 H 90 88 Pulse Rate [ From Monitor] Respiratory 25 H 25 H 25 H Rate Blood Pressure 113/59 113/59 110/54 Blood Pressure [Left] O2 Sat by Pulse 98 98 98 Oximetry 09/10/20 09/10/20 09/10/20 06:31 06:45 07:01 Pulse Rate 105 H 88 96 H Pulse Rate [ From Monitor] Respiratory 22 20 25 H Rate Blood Pressure 110/54 127/59 125/66 Blood Pressure [Left] O2 Sat by Pulse 94 88 90 Oximetry 09/10/20 09/10/20 09/10/20 07:15 07:31 07:45 Pulse Rate 93 H 90 87 Pulse Rate [ From Monitor] Respiratory 25 H 25 H 16 Rate Blood Pressure 103/58 103/58 106/58 Blood Pressure [Left] O2 Sat by Pulse 93 95 98 Oximetry 09/10/20 09/10/20 09/10/20 08:01 09:08 09:13 Pulse Rate 87 83 84 Pulse Rate [ From Monitor] Respiratory 25 H 25 H Rate Blood Pressure 115/55 107/49 Blood Pressure 107/49 [Left] O2 Sat by Pulse 97 97 97 Oximetry 09/10/20 09/10/20 09/10/20 09:54 10:00 12:00 Pulse Rate 79 Pulse Rate [ 78 From Monitor] Respiratory 25 H 25 H Rate Blood Pressure Blood Pressure [Left] O2 Sat by Pulse 99 Oximetry 09/10/20 12:28 Pulse Rate Pulse Rate [ From Monitor] Respiratory Rate Blood Pressure 105/56 Blood Pressure [Left] O2 Sat by Pulse 99 Oximetry Constitutional: no acute distress, other (young lady with mildly increased respiratory effort at rest on MVS) Eyes: non-icteric ENT: oropharynx moist, other (ETT 24 cm APOLINAR) Neck: supple, no lymphadenopathy, no JVD Effort: mildly labored Ascultation: Bilateral: rhonchi Percussion: Bilateral: not dull Cardiovascular: regular rate and rhythm Gastrointestinal: normoactive bowel sounds, soft, non-tender, non-distended (protuberant) Integumentary: normal Extremities: no cyanosis, no edema, pulses normal, no ischemia or petechiae Neurologic: non-focal exam (grossly), pupils equal and round, motor strength normal and Psychiatric: other (agitated during SAT's) CBC and BMP: 09/10/20 04:42 09/10/20 04:42 ABG, PT/INR, D-dimer: ABG ABG pH 7.497 (7.320-7.450) H 09/10/20 04:19 POC ABG pCO2 25.0 mmHg (32.0-48.0) L 09/10/20 04:19 ABG pCO2 39.1 mm Hg 09/09/20 17:05 POC ABG pO2 96.8 mmHg (83-108) 09/10/20 04:19 ABG pO2 143.7 mm Hg (80.0-90.0) H 09/09/20 17:05 POC ABG HCO3 18.9 09/10/20 04:19 ABG O2 Saturation 97.7 (0-100) 09/10/20 04:19 PT/INR, D-dimer PT 19.2 Sec. (12.2-14.9) H 09/09/20 10:42 INR 1.57 (0.87-1.13) H 09/09/20 10:42 D-Dimer 5936.95 ng/mlDDU (0-234) H 09/09/20 14:31 Abnormal lab findings: Abnormal Labs 09/09/20 09/09/20 09/09/20 10:42 10:42 10:42 RBC MCV 100 H MCHC Lymph % (Auto) Lymph # (Auto) Seg Neutrophils % Seg Neuts % (Manual) 33.0 L Lymphocytes % (Manual) 41.0 H Nucleated RBC % 1.0 H PT 19.2 H INR 1.57 H APTT 42.5 H D-Dimer ABG pH POC ABG pCO2 ABG pO2 ABG HCO3 ABG Base Excess ABG Hemoglobin ABG Chloride ABG Glucose Oxyhemoglobin Carboxyhemoglobin Potassium 5.4 H Chloride Carbon Dioxide 17 L BUN 25 H Creatinine 2.5 H Glucose 205 H Lactic Acid Calcium Magnesium Ferritin AST 60 H ALT Lactate Dehydrogenase Total Creatine Kinase Troponin T 0.092 H C-Reactive Protein Total Protein 5.3 L Albumin 3.0 L HDL Cholesterol Arterial Blood Glucose Urine WBC (Auto) Salicylates Acetaminophen 09/09/20 09/09/20 09/09/20 10:42 10:42 10:42 RBC MCV MCHC Lymph % (Auto) Lymph # (Auto) Seg Neutrophils % Seg Neuts % (Manual) Lymphocytes % (Manual) Nucleated RBC % PT INR APTT D-Dimer ABG pH POC ABG pCO2 ABG pO2 ABG HCO3 ABG Base Excess ABG Hemoglobin ABG Chloride ABG Glucose Oxyhemoglobin Carboxyhemoglobin Potassium Chloride Carbon Dioxide BUN Creatinine Glucose Lactic Acid 16.60 H* Calcium Magnesium 3.30 H Ferritin AST ALT Lactate Dehydrogenase Total Creatine Kinase 166 H Troponin T C-Reactive Protein Total Protein Albumin HDL Cholesterol Arterial Blood Glucose Urine WBC (Auto) Salicylates Acetaminophen 09/09/20 09/09/20 09/09/20 10:42 10:42 11:30 RBC MCV MCHC Lymph % (Auto) Lymph # (Auto) Seg Neutrophils % Seg Neuts % (Manual) Lymphocytes % (Manual) Nucleated RBC % PT INR APTT D-Dimer ABG pH 6.919 L* POC ABG pCO2 ABG pO2 127.2 H ABG HCO3 10.3 L ABG Base Excess -21.7 L ABG Hemoglobin 10.8 L ABG Chloride ABG Glucose Oxyhemoglobin 94.2 L Carboxyhemoglobin Potassium Chloride Carbon Dioxide BUN Creatinine Glucose Lactic Acid Calcium Magnesium Ferritin AST ALT Lactate Dehydrogenase Total Creatine Kinase Troponin T C-Reactive Protein Total Protein Albumin HDL Cholesterol Arterial Blood Glucose Urine WBC (Auto) Salicylates < 0.3 L Acetaminophen 5.0 L 08/04/2709/09/20 09/09/20 14:31 14:31 14:31 RBC MCV MCHC Lymph % (Auto) Lymph # (Auto) Seg Neutrophils % Seg Neuts % (Manual) Lymphocytes % (Manual) Nucleated RBC % PT INR APTT D-Dimer 5936.95 H ABG pH POC ABG pCO2 ABG pO2 ABG HCO3 ABG Base Excess ABG Hemoglobin ABG Chloride ABG Glucose Oxyhemoglobin Carboxyhemoglobin Potassium Chloride Carbon Dioxide BUN Creatinine Glucose Lactic Acid Calcium Magnesium Ferritin AST ALT Lactate Dehydrogenase 513 H Total Creatine Kinase Troponin T 0.140 H* D C-Reactive Protein 3.80 H Total Protein Albumin HDL Cholesterol 31 L Arterial Blood Glucose Urine WBC (Auto) Salicylates Acetaminophen 09/09/20 09/09/20 09/09/20 14:31 14:31 16:39 RBC MCV MCHC Lymph % (Auto) Lymph # (Auto) Seg Neutrophils % Seg Neuts % (Manual) Lymphocytes % (Manual) Nucleated RBC % PT INR APTT D-Dimer ABG pH POC ABG pCO2 ABG pO2 ABG HCO3 ABG Base Excess ABG Hemoglobin ABG Chloride ABG Glucose Oxyhemoglobin Carboxyhemoglobin Potassium Chloride Carbon Dioxide BUN Creatinine Glucose Lactic Acid 7.20 H* Calcium Magnesium Ferritin 1995.0 H AST ALT Lactate Dehydrogenase Total Creatine Kinase Troponin T 0.174 H* D C-Reactive Protein Total Protein Albumin HDL Cholesterol Arterial Blood Glucose Urine WBC (Auto) Salicylates Acetaminophen 09/09/20 09/09/20 09/10/20 17:05 Unknown 04:19 RBC MCV MCHC Lymph % (Auto) Lymph # (Auto) Seg Neutrophils % Seg Neuts % (Manual) Lymphocytes % (Manual) Nucleated RBC % PT INR APTT D-Dimer ABG pH 7.278 L 7.497 H POC ABG pCO2 25.0 L ABG pO2 143.7 H ABG HCO3 17.9 L ABG Base Excess -8.3 L ABG Hemoglobin 11.6 L ABG Chloride 112.0 H ABG Glucose 113 H Oxyhemoglobin Carboxyhemoglobin 0.3 L Potassium Chloride Carbon Dioxide BUN Creatinine Glucose Lactic Acid Calcium Magnesium Ferritin AST ALT Lactate Dehydrogenase Total Creatine Kinase Troponin T C-Reactive Protein Total Protein Albumin HDL Cholesterol Arterial Blood Glucose 113 H Urine WBC (Auto) 7.0 H Salicylates Acetaminophen 09/10/20 09/10/20 09/10/20 04:42 04:42 04:42 RBC 3.64 L MCV MCHC 35 H Lymph % (Auto) 11.0 L Lymph # (Auto) 0.9 L Seg Neutrophils % 82.7 H Seg Neuts % (Manual) Lymphocytes % (Manual) Nucleated RBC % PT INR APTT D-Dimer ABG pH POC ABG pCO2 ABG pO2 ABG HCO3 ABG Base Excess ABG Hemoglobin ABG Chloride ABG Glucose Oxyhemoglobin Carboxyhemoglobin Potassium 3.5 L D Chloride 108.4 H Carbon Dioxide BUN 33 H Creatinine 1.5 H Glucose 107 H Lactic Acid 2.20 H* Calcium 7.2 L D Magnesium Ferritin AST 220 H ALT 117 H Lactate Dehydrogenase Total Creatine Kinase Troponin T C-Reactive Protein Total Protein 5.5 L Albumin 3.0 L HDL Cholesterol Arterial Blood Glucose Urine WBC (Auto) Salicylates Acetaminophen 09/10/20 10:34 RBC MCV MCHC Lymph % (Auto) Lymph # (Auto) Seg Neutrophils % Seg Neuts % (Manual) Lymphocytes % (Manual) Nucleated RBC % PT INR APTT D-Dimer ABG pH POC ABG pCO2 ABG pO2 ABG HCO3 ABG Base Excess ABG Hemoglobin ABG Chloride ABG Glucose Oxyhemoglobin Carboxyhemoglobin Potassium Chloride Carbon Dioxide BUN Creatinine Glucose Lactic Acid 2.40 H* Calcium Magnesium Ferritin AST ALT Lactate Dehydrogenase Total Creatine Kinase Troponin T C-Reactive Protein Total Protein Albumin HDL Cholesterol Arterial Blood Glucose Urine WBC (Auto) Salicylates Acetaminophen Chest x-ray: image reviewed (mild interstitial infiltrates) Allied health notes reviewed: nursing
--- NOTE | 2020-09-10 15:45 | Progress Note ---
Assessment and Plan 25 YO Female with Asthma, morbid Obesity was bought to ER unresponsive. As per fianc the patient was in her usual state of health overnight while drinking alcohol with concomitant ingestion of ecstasy. Patient was found to be unresponsive in cardiac arrest, EMS was notified, Patient was intubated in the field. Patient initiated on ACLS protocol and subsequently transported to [facility] for further care and evaluation. CXR showed infiltrates, elevated troponin, UDS positive for cocaine/marijuana. Patient admitted to ICU and initiated on sepsis protocol. A/P --Sepsis with shock likely from aspiration PNA cont abx, follow Cx monitor lactic acid - trending down -- Acute hypoxemic respiratory failure Patient intubated and ambulatory support, wean vent as tolerated, critical care team consulted, spontaneous breathing trial daily, daily ABG, chest x-ray, -- Metabolic acidosis IV fluid resuscitation therapy, IV bicarbonate therapy, supportive care, BMP, repeat BMP in a.m. -- Toxic metabolic encephalopathy UDS +ve for cocaine/marijuana --S/P Cardiac arrest Patient treated" with ACLS protocol with eventual return of perfusion cardiac rhythm. -- Anoxic brain injury, suspected CT head w/o any acute process follow clinically, neurology consult -- Aspiration pneumonia Pneumonia protocol: Chest x-ray, CBC, CMP, IV antibiotic therapy, wean vent as tolerated. rule out for COVID --Elevated troponin order 2d echo, elevated likely from cardiac arrest cardiac consult -- DVT prophylaxis SCD to bilateral lower extremities while in bed, prophylactic anticoagulation --Advance care planning Full code status The high probability of a clinically significant, sudden or life threatening deterioration of the [multi] system(s) required my full and direct attention, intervention and personal management. The aggregate critical care time was [35] minutes. This time is in addition to time spent performing reported procedures but includes the following: [x] Data Review and interpretation [x] Patient assessment and monitoring of vital signs [x] Documentation [x] Medication orders and management Daily clinical course: 09/10/20: follow pending COVID test, CC consulted, will follow clinically and wean off from vent and pressor as tolerated. neuro consult. cont iv fluid hydration Subjective Date of service: 09/10/20 Principal diagnosis: Acute hypoxemic resp failure; Cardiac arrest with ROSC; Pneumonia; ANGELICA Interval history: patient seen and examined patient remains intubated noted vitals and discussed with RN at the bedside patient on levophed Objective - Exam Narrative Exam: GENERAL: well-developed and obese -[place] female lying on bed intubated and sedated no discomfort. HEENT: Normocephalic. Atraumatic. No conjunctival congestion or icterus. Patient has moist mucous membranes. NECK: Supple. Trachea midline. CHEST/LUNGS: on mechanical ventilation, positive few crackles HEART/CARDIOVASCULAR: Regular in rate and rhythm. S1 and S2 positive. ABDOMEN: Abdomen is soft, nontender. Patient has normal bowel sounds. SKIN: There is no rash. Warm and dry. NEURO: Sedated, moves extremities MUSCULOSKELETAL: No joint effusion or tenderness. EXTRIMITY: No edema, no cyanosis or clubbing. PSYCH: sedated - Constitutional Vitals: Vital Signs - 12hr 09/10/20 09/10/20 09/10/20 04:01 04:15 04:17 Pulse Rate 88 90 90 Pulse Rate [ From Monitor] Respiratory 25 H 25 H Rate Blood Pressure 105/59 103/56 103/56 Blood Pressure [Left] O2 Sat by Pulse 99 99 99 Oximetry 09/10/20 09/10/20 09/10/20 04:31 04:45 05:01 Pulse Rate 91 H 83 90 Pulse Rate [ From Monitor] Respiratory 25 H 21 25 H Rate Blood Pressure 103/56 110/59 105/59 Blood Pressure [Left] O2 Sat by Pulse 100 99 99 Oximetry 09/10/20 09/10/20 09/10/20 05:15 05:31 05:45 Pulse Rate 87 90 91 H Pulse Rate [ From Monitor] Respiratory 25 H 25 H 25 H Rate Blood Pressure 102/57 110/59 113/59 Blood Pressure [Left] O2 Sat by Pulse 99 99 98 Oximetry 09/10/20 09/10/20 09/10/20 06:01 06:15 06:31 Pulse Rate 90 88 105 H Pulse Rate [ From Monitor] Respiratory 25 H 25 H 22 Rate Blood Pressure 113/59 110/54 110/54 Blood Pressure [Left] O2 Sat by Pulse 98 98 94 Oximetry 09/10/20 09/10/20 09/10/20 06:45 07:01 07:15 Pulse Rate 88 96 H 93 H Pulse Rate [ From Monitor] Respiratory 20 25 H 25 H Rate Blood Pressure 127/59 125/66 103/58 Blood Pressure [Left] O2 Sat by Pulse 88 90 93 Oximetry 09/10/20 09/10/20 09/10/20 07:31 07:45 08:01 Pulse Rate 90 87 87 Pulse Rate [ From Monitor] Respiratory 25 H 16 25 H Rate Blood Pressure 103/58 106/58 115/55 Blood Pressure [Left] O2 Sat by Pulse 95 98 97 Oximetry 09/10/20 09/10/20 09/10/20 09:08 09:13 09:54 Pulse Rate 83 84 Pulse Rate [ From Monitor] Respiratory 25 H 25 H Rate Blood Pressure 107/49 Blood Pressure 107/49 [Left] O2 Sat by Pulse 97 97 Oximetry 09/10/20 09/10/20 09/10/20 10:00 12:00 12:28 Pulse Rate 79 Pulse Rate [ 78 From Monitor] Respiratory 25 H Rate Blood Pressure 105/56 Blood Pressure [Left] O2 Sat by Pulse 99 99 Oximetry - Labs CBC & Chem 7: 09/11/20 10:04 09/11/20 10:04 Labs: Abnormal lab results 09/09/20 09/09/20 09/09/20 Range/Units 10:42 14:31 16:39 RBC (3.65-5.03) M/mm3 MCHC (30-34) % Lymph % (Auto) (13.4-35.0) % Lymph # (Auto) (1.2-5.4) K/mm3 Seg Neutrophils % (40.0-70.0) % Seg Neuts % (Manual) 33.0 L (40.0-70.0) % Lymphocytes % (Manual) 41.0 H (13.4-35.0) % Nucleated RBC % 1.0 H (0.0-0.9) % ABG pH (7.350-7.450) pH Units POC ABG pCO2 (32.0-48.0) mmHg ABG pO2 (80.0-90.0) mm Hg ABG HCO3 (20.0-26.0) mmol/L ABG Base Excess (-2.0-3.0) mmol/L ABG Hemoglobin (12.0-17.5) ABG Chloride (98-107) mmol/L ABG Glucose (65-95) mg/dL Carboxyhemoglobin (0.5-1.5) Potassium (3.6-5.0) mmol/L Chloride (98-107) mmol/L BUN (7-17) mg/dL Creatinine (0.6-1.2) mg/dL Glucose (65-100) mg/dL Lactic Acid (0.7-2.0) mmol/L Calcium (8.4-10.2) mg/dL AST (5-40) units/L ALT (7-56) units/L Troponin T 0.140 H* D 0.174 H* D (0.00-0.029) ng/mL Total Protein (6.3-8.2) g/dL Albumin (3.9-5) g/dL HDL Cholesterol 31 L (40-59) mg/dL Arterial Blood Glucose (65-95) mg/dL 09/09/20 09/10/20 09/10/20 Range/Units 17:05 04:19 04:42 RBC 3.64 L (3.65-5.03) M/mm3 MCHC 35 H (30-34) % Lymph % (Auto) 11.0 L (13.4-35.0) % Lymph # (Auto) 0.9 L (1.2-5.4) K/mm3 Seg Neutrophils % 82.7 H (40.0-70.0) % Seg Neuts % (Manual) (40.0-70.0) % Lymphocytes % (Manual) (13.4-35.0) % Nucleated RBC % (0.0-0.9) % ABG pH 7.278 L 7.497 H (7.350-7.450) pH Units POC ABG pCO2 25.0 L (32.0-48.0) mmHg ABG pO2 143.7 H (80.0-90.0) mm Hg ABG HCO3 17.9 L (20.0-26.0) mmol/L ABG Base Excess -8.3 L (-2.0-3.0) mmol/L ABG Hemoglobin 11.6 L (12.0-17.5) ABG Chloride 112.0 H (98-107) mmol/L ABG Glucose 113 H (65-95) mg/dL Carboxyhemoglobin 0.3 L (0.5-1.5) Potassium (3.6-5.0) mmol/L Chloride (98-107) mmol/L BUN (7-17) mg/dL Creatinine (0.6-1.2) mg/dL Glucose (65-100) mg/dL Lactic Acid (0.7-2.0) mmol/L Calcium (8.4-10.2) mg/dL AST (5-40) units/L ALT (7-56) units/L Troponin T (0.00-0.029) ng/mL Total Protein (6.3-8.2) g/dL Albumin (3.9-5) g/dL HDL Cholesterol (40-59) mg/dL Arterial Blood Glucose 113 H (65-95) mg/dL 09/10/20 09/10/20 09/10/20 Range/Units 04:42 04:42 10:34 RBC (3.65-5.03) M/mm3 MCHC (30-34) % Lymph % (Auto) (13.4-35.0) % Lymph # (Auto) (1.2-5.4) K/mm3 Seg Neutrophils % (40.0-70.0) % Seg Neuts % (Manual) (40.0-70.0) % Lymphocytes % (Manual) (13.4-35.0) % Nucleated RBC % (0.0-0.9) % ABG pH (7.350-7.450) pH Units POC ABG pCO2 (32.0-48.0) mmHg ABG pO2 (80.0-90.0) mm Hg ABG HCO3 (20.0-26.0) mmol/L ABG Base Excess (-2.0-3.0) mmol/L ABG Hemoglobin (12.0-17.5) ABG Chloride (98-107) mmol/L ABG Glucose (65-95) mg/dL Carboxyhemoglobin (0.5-1.5) Potassium 3.5 L D (3.6-5.0) mmol/L Chloride 108.4 H (98-107) mmol/L BUN 33 H (7-17) mg/dL Creatinine 1.5 H (0.6-1.2) mg/dL Glucose 107 H (65-100) mg/dL Lactic Acid 2.20 H* 2.40 H* (0.7-2.0) mmol/L Calcium 7.2 L D (8.4-10.2) mg/dL AST 220 H (5-40) units/L ALT 117 H (7-56) units/L Troponin T (0.00-0.029) ng/mL Total Protein 5.5 L (6.3-8.2) g/dL Albumin 3.0 L (3.9-5) g/dL HDL Cholesterol (40-59) mg/dL Arterial Blood Glucose (65-95) mg/dL HEART Score - HEART Score Troponin: Troponin T 0.174 ng/mL (0.00-0.029) H* D 09/09/20 16:39
[2020-09-10] MEDS: NORepinephrine/NS 4 MG-250 ML 4 MG/250 ML BAG IV SCH (18:42)
[2020-09-11] MEDS: NORepinephrine/NS 4 MG-250 ML 4 MG/250 ML BAG IV SCH (01:15)
--- NOTE | 2020-09-11 03:20 | XRay Report ---
CHEST 1 VIEW 09/11/2020 2:02 AM INDICATION / CLINICAL INFORMATION: follow up respiratory failure. COMPARISON: 09/10/20 FINDINGS: SUPPORT DEVICES: Unchanged. HEART / MEDIASTINUM: No significant abnormality. LUNGS / PLEURA: Partial right middle lobe atelectasis. Left lung is clear. No pneumothorax. ADDITIONAL FINDINGS: No significant additional findings. IMPRESSION: 1. Partial right middle lobe atelectasis. Signer Name: Elida Mueller MD Signed: 09/11/2020 3:16 AM Workstation Name: [id number]
[2020-09-11] MEDS: fentaNYL DRIP Premix 2,000 MCG/100 ML BAG IV SCH ×3 (04:15→20:43)
[2020-09-11] MEDS: FAMOTIDINE 20 MG TAB PO SCH ×2 (09:32→21:42)
[2020-09-11] MEDS: SENNOSIDES/DOCUSATE SODIUM 8.6/50 MG TAB FEEDTUBE SCH ×2 (09:32→21:42)
[2020-09-11] MEDS: HEPARIN 5,000 UNIT/1 ML VIAL SUB-Q SCH ×2 (09:32→21:42)
--- NOTE | 2020-09-11 09:33 | Consultation ---
History of Present Illness Consult date: 09/11/20 Reason for Consult: post cardiac arrest ,positive UDS History of present illness: She was not breathing History of present illness: 25 YO Female with Asthma, Obesity presents to ED for evaluation. Patient is intubated and ambulatory support at the time my evaluation anxiety to provide history. Patient history taken from EMS staff, ED staff, as well as patient fianc. As per fianc the patient was in her usual state of health overnight while drinking alcohol with concomitant ingestion of ecstasy. Patient was found to be unresponsive. EMS was notified and upon arrival the patient was found to be in distress with vomitus in the oropharynx but refused transport to hospital for evaluation. EMS was renotified after the patient was noted to have absent breath sounds. EMS was notified and upon arrival the patient was found to be apneic and unable to breathe on her own. Patient was intubated in the field. Patient found to be in cardiac arrest. Patient initiated on 6 ACLS protocol and subsequently tra nsported to [facility] for further care and evaluation. Upon arrival to [facility] Patient pupils are fixed and dilated. Patient found to have septic shock. Patient admitted to ICU and initiated on sepsis protocol. Critical care team consulted in ED. Advanced care planning conducted. No reports of fever, chills, chest pain, palpitation, productive cough, skin rash, recent ill contacts, known exposure to COVID-19. No prior admission for review. No medication listed at time of admission reconciliation. today she is moving allover the bed intubated and sedated on 4 mc Fentanyl and 15Mc propofol to calm her down BP is slightly on low side she is on levofed CT brain intially is unremarkable MRI and EEG are pending UDS is positive for Cocaine. Past History Past Medical History: other (See HPI) Past Surgical History: No surgical history, Other (Reviewed) Social history: single Family history: diabetes, hypertension Medications and Allergies Allergies Allergy/AdvReac Type Severity Reaction Status Date / Time No Known Allergies Allergy Unverified 12/10/18 09:39 Home Medications Medication Instructions Recorded Confirmed Last Taken Type Ibuprofen [Motrin 800 MG tab] 800 mg PO Q8HR PRN #30 tablet 12/10/18 09/09/20 Unknown Rx Active Meds: Active Medications Acetaminophen (Acetaminophen 325 Mg Tab) 650 mg PO Q6H PRN PRN Reason: Pain MILD(1-3)/Fever >100.5/CHERRY Famotidine (Famotidine 20 Mg/2 Ml Inj) 20 mg IV BID LORENE Hydromorphone HCl (Hydromorphone 1 Mg/1 Ml Inj) 0.5 mg IV Q12H PRN PRN Reason: Pain , Severe (7-10) Hydrophilic Ointment (Lip Therapy Vaseline) 1 applic TP Q2HR PRN PRN Reason: Dry Lips Norepinephrine (Levophed Drip 4 Mg/Ns 250 Ml) 4 mg in 250 mls @ 7.5 mls/hr IV TITR LORENE; Protocol Sodium Bicarbonate 150 meq/ (Dextrose) 1,150 mls @ 125 mls/hr IV DIRECT LORENE Metronidazole (Flagyl 500 Mg/100 Ml) 500 mg in 100 mls @ 100 mls/hr IV ONCE ONE; Protocol Stop: 09/09/20 13:09 Last Admin: 09/09/20 12:35 Dose: 100 mls/hr Documented by: Azithromycin (Zithromax/Ns) 500 mg in 250 mls @ 250 mls/hr IV ONCE ONE; Protocol Stop: 09/09/20 13:09 Last Admin: 09/09/20 12:29 Dose: 250 mls/hr Documented by: Multi-Ingred Cream/Lotion/Oil/Oint (Mineral Oil/Petrolatum, White Ophth Oint 3.5 Gm) 1 applic OU Q4HR PRN PRN Reason: Dry Eye(s) Oxycodone/Acetaminophen (Oxycodone /Acetaminophen 5-325mg Tab) 1 tab PO Q12H PRN PRN Reason: Pain, Moderate (4-6) Senna/Docusate Sodium (Sennosides/Docusate Sodium 8.6/50 Mg Tab) 1 tab FEEDTUBE BID LORENE Sodium Chloride (Sodium Chloride 0.9% 10 Ml Flush Syringe) 10 ml IV BID LORENE Sodium Chloride (Sodium Chloride 0.9% 10 Ml Flush Syringe) 10 ml IV PRN PRN PRN Reason: LINE FLUSH Review of Systems ROS unobtainable: due to endotracheal tube, due to mental status Past History Past Medical History: other (See HPI) Past Surgical History: No surgical history, Other (Reviewed) Social history: single Family history: diabetes, hypertension Medications and Allergies Allergies Allergy/AdvReac Type Severity Reaction Status Date / Time No Known Allergies Allergy Unverified 12/10/18 09:39 Home Medications Medication Instructions Recorded Confirmed Last Taken Type Ibuprofen [Motrin 800 MG tab] 800 mg PO Q8HR PRN #30 tablet 12/10/18 09/09/20 Unknown Rx Active Meds: Active Medications Acetaminophen (Acetaminophen 325 Mg Tab) 650 mg PO Q6H PRN PRN Reason: Pain MILD(1-3)/Fever >100.5/CHERRY Lipase/Protease/Amylase (Lipase 10,500/Protease 25,000/Amylase 43,750 (Units) Dr Cap) 1 each FEEDTUBE PRN PRN PRN Reason: For Clogged Feeding Tube Famotidine (Famotidine 20 Mg Tab) 20 mg PO BID LORENE Fentanyl (Fentanyl 100 Mcg/2 Ml Inj) 50 mcg IV Q10MIN PRN PRN Reason: ANALGESIA Last Admin: 09/10/20 09:54 Dose: 50 mcg Documented by: Heparin Sodium (Porcine) (Heparin 5,000 Unit/1 Ml Vial) 5,000 unit SUB-Q Q12HR LORENE Last Admin: 09/10/20 22:12 Dose: 5,000 unit Documented by: Hydromorphone HCl (Hydromorphone 1 Mg/1 Ml Inj) 0.5 mg IV Q12HR PRN PRN Reason: Pain , Severe (7-10) Hydrophilic Ointment (Lip Therapy Vaseline) 1 applic TP Q2HR PRN PRN Reason: Dry Lips Norepinephrine (Levophed Drip 4 Mg/Ns 250 Ml) 4 mg in 250 mls @ 7.5 mls/hr IV TITR LORENE; Protocol Last Titration: 09/11/20 01:45 Dose: 0 mcg/min, 0 mls/hr Documented by: Fentanyl Citrate (Fentanyl Drip Premix) 2,000 mcg in 100 mls @ 3.674 mls/hr IV TITR LORENE; Protocol Last Admin: 09/11/20 04:15 Dose: 4 mcg/kg/hr, 14.696 mls/hr Documented by: Propofol (Diprivan 10 Mg/Ml) 1,000 mg in 100 mls @ 2.204 mls/hr IV TITR LORENE; Protocol Last Admin: 09/11/20 01:49 Dose: 5 mcg/kg/min, 2.204 mls/hr Documented by: Dextrose/Sodium Chloride (D5ns) 1,000 mls @ 100 mls/hr IV DIRECT [facility] Last Admin: 09/10/20 15:50 Dose: 100 mls/hr Documented by: Multi-Ingred Cream/Lotion/Oil/Oint (Mineral Oil/Petrolatum, White Ophth Oint 3.5 Gm) 1 applic OU Q4HR PRN PRN Reason: Dry Eye(s) Oxycodone/Acetaminophen (Oxycodone /Acetaminophen 5-325mg Tab) 1 tab PO Q12H PRN PRN Reason: Pain, Moderate (4-6) Senna/Docusate Sodium (Sennosides/Docusate Sodium 8.6/50 Mg Tab) 1 tab FEEDTUBE BID [facility] Last Admin: 09/10/20 22:13 Dose: 1 tab Documented by: Simple Syrup (Simple Syrup 15 Ml) 15 ml FEEDTUBE PRN PRN PRN Reason: Hypoglycemia Simple Syrup (Simple Syrup 15 Ml) 30 ml FEEDTUBE PRN PRN PRN Reason: Hypoglycemia Sodium Bicarbonate (Sodium Bicarbonate 325 Mg Tab) 325 mg FEEDTUBE PRN PRN PRN Reason: For Clogged Feeding Tube Sodium Chloride (Sodium Chloride 0.9% 10 Ml Flush Syringe) 10 ml IV BID [facility] Last Admin: 09/10/20 22:12 Dose: 10 ml Documented by: Sodium Chloride (Sodium Chloride 0.9% 10 Ml Flush Syringe) 10 ml IV PRN PRN PRN Reason: LINE FLUSH Physical Examination - Vital Signs Vital Signs: Vital Signs Pulse Resp BP Pulse Ox 52 L 4 L 129/83 100 09/09/20 12:38 09/09/20 12:38 09/09/20 12:38 09/09/20 12:38 - Constitutional General appearance: comfortable, other (intubated and sedated) - EENT EENT: Present: PERRL, mucous membranes moist - Respiratory Respiratory: Present: chest non-tender, lungs clear, rhonchi - Cardiovascular Cardiovascular: Present: regular rate, normal S1, normal S2 Extremities: Present: no peripheral edema bilatateraly, no clubbing, cyanosis - Gastrointestinal Gastrointestinal: Present: normoactive bowel sounds - Integumentary Integumentary: Present: normal - Neurologic Cranial nerve examination: PERRL, intact (EOM is limited and corneal reflex is abset bilateral,slight gag is noted ) Detailed motor examination: other (slight movment to sternal rub according to Nurse pt. was moving all over before she increase her Propofol) Results - Laboratory Findings CBC and BMP: 09/11/20 10:04 09/11/20 10:04 Abnormal Lab Findings: Abnormal Labs 09/09/20 09/09/20 09/09/20 10:42 10:42 10:42 RBC MCV 100 H MCHC Lymph % (Auto) Lymph # (Auto) Seg Neutrophils % Seg Neuts % (Manual) 33.0 L Lymphocytes % (Manual) 41.0 H Nucleated RBC % 1.0 H PT 19.2 H INR 1.57 H APTT 42.5 H D-Dimer ABG pH POC ABG pCO2 POC ABG pO2 ABG pO2 ABG HCO3 ABG Base Excess ABG Hemoglobin ABG Oxyhemoglobin ABG Potassium ABG Chloride ABG Glucose Oxyhemoglobin Carboxyhemoglobin Potassium 5.4 H Chloride Carbon Dioxide 17 L BUN 25 H Creatinine 2.5 H Glucose 205 H POC Glucose Lactic Acid Calcium Magnesium Ferritin AST 60 H ALT Lactate Dehydrogenase Total Creatine Kinase Troponin T 0.092 H C-Reactive Protein Total Protein 5.3 L Albumin 3.0 L HDL Cholesterol Arterial Blood Glucose Arterial Blood Ionized Calcium Urine WBC (Auto) Salicylates Acetaminophen 09/09/20 09/09/20 09/09/20 10:42 10:42 10:42 RBC MCV MCHC Lymph % (Auto) Lymph # (Auto) Seg Neutrophils % Seg Neuts % (Manual) Lymphocytes % (Manual) Nucleated RBC % PT INR APTT D-Dimer ABG pH POC ABG pCO2 POC ABG pO2 ABG pO2 ABG HCO3 ABG Base Excess ABG Hemoglobin ABG Oxyhemoglobin ABG Potassium ABG Chloride ABG Glucose Oxyhemoglobin Carboxyhemoglobin Potassium Chloride Carbon Dioxide BUN Creatinine Glucose POC Glucose Lactic Acid 16.60 H* Calcium Magnesium 3.30 H Ferritin AST ALT Lactate Dehydrogenase Total Creatine Kinase 166 H Troponin T C-Reactive Protein Total Protein Albumin HDL Cholesterol Arterial Blood Glucose Arterial Blood Ionized Calcium Urine WBC (Auto) Salicylates Acetaminophen 09/09/20 09/09/20 09/09/20 10:42 10:42 11:30 RBC MCV MCHC Lymph % (Auto) Lymph # (Auto) Seg Neutrophils % Seg Neuts % (Manual) Lymphocytes % (Manual) Nucleated RBC % PT INR APTT D-Dimer ABG pH 6.919 L* POC ABG pCO2 POC ABG pO2 ABG pO2 127.2 H ABG HCO3 10.3 L ABG Base Excess -21.7 L ABG Hemoglobin 10.8 L ABG Oxyhemoglobin ABG Potassium ABG Chloride ABG Glucose Oxyhemoglobin 94.2 L Carboxyhemoglobin Potassium Chloride Carbon Dioxide BUN Creatinine Glucose POC Glucose Lactic Acid Calcium Magnesium Ferritin AST ALT Lactate Dehydrogenase Total Creatine Kinase Troponin T C-Reactive Protein Total Protein Albumin HDL Cholesterol Arterial Blood Glucose Arterial Blood Ionized Calcium Urine WBC (Auto) Salicylates < 0.3 L Acetaminophen 5.0 L 09/09/20 09/09/20 09/09/20 14:31 14:31 14:31 RBC MCV MCHC Lymph % (Auto) Lymph # (Auto) Seg Neutrophils % Seg Neuts % (Manual) Lymphocytes % (Manual) Nucleated RBC % PT INR APTT D-Dimer 5936.95 H ABG pH POC ABG pCO2 POC ABG pO2 ABG pO2 ABG HCO3 ABG Base Excess ABG Hemoglobin ABG Oxyhemoglobin ABG Potassium ABG Chloride ABG Glucose Oxyhemoglobin Carboxyhemoglobin Potassium Chloride Carbon Dioxide BUN Creatinine Glucose POC Glucose Lactic Acid Calcium Magnesium Ferritin AST ALT Lactate Dehydrogenase 513 H Total Creatine Kinase Troponin T 0.140 H* D C-Reactive Protein 3.80 H Total Protein Albumin HDL Cholesterol 31 L Arterial Blood Glucose Arterial Blood Ionized Calcium Urine WBC (Auto) Salicylates Acetaminophen 09/09/20 09/09/20 09/09/20 14:31 14:31 16:39 RBC MCV MCHC Lymph % (Auto) Lymph # (Auto) Seg Neutrophils % Seg Neuts % (Manual) Lymphocytes % (Manual) Nucleated RBC % PT INR APTT D-Dimer ABG pH POC ABG pCO2 POC ABG pO2 ABG pO2 ABG HCO3 ABG Base Excess ABG Hemoglobin ABG Oxyhemoglobin ABG Potassium ABG Chloride ABG Glucose Oxyhemoglobin Carboxyhemoglobin Potassium Chloride Carbon Dioxide BUN Creatinine Glucose POC Glucose Lactic Acid 7.20 H* Calcium Magnesium Ferritin 1995.0 H AST ALT Lactate Dehydrogenase Total Creatine Kinase Troponin T 0.174 H* D C-Reactive Protein Total Protein Albumin HDL Cholesterol Arterial Blood Glucose Arterial Blood Ionized Calcium Urine WBC (Auto) Salicylates Acetaminophen 09/09/20 09/09/20 09/10/20 17:05 Unknown 04:19 RBC MCV MCHC Lymph % (Auto) Lymph # (Auto) Seg Neutrophils % Seg Neuts % (Manual) Lymphocytes % (Manual) Nucleated RBC % PT INR APTT D-Dimer ABG pH 7.278 L 7.497 H POC ABG pCO2 25.0 L POC ABG pO2 ABG pO2 143.7 H ABG HCO3 17.9 L ABG Base Excess -8.3 L ABG Hemoglobin 11.6 L ABG Oxyhemoglobin ABG Potassium ABG Chloride 112.0 H ABG Glucose 113 H Oxyhemoglobin Carboxyhemoglobin 0.3 L Potassium Chloride Carbon Dioxide BUN Creatinine Glucose POC Glucose Lactic Acid Calcium Magnesium Ferritin AST ALT Lactate Dehydrogenase Total Creatine Kinase Troponin T C-Reactive Protein Total Protein Albumin HDL Cholesterol Arterial Blood Glucose 113 H Arterial Blood Ionized Calcium Urine WBC (Auto) 7.0 H Salicylates Acetaminophen 09/10/20 09/10/20 09/10/20 04:42 04:42 04:42 RBC 3.64 L MCV MCHC 35 H Lymph % (Auto) 11.0 L Lymph # (Auto) 0.9 L Seg Neutrophils % 82.7 H Seg Neuts % (Manual) Lymphocytes % (Manual) Nucleated RBC % PT INR APTT D-Dimer ABG pH POC ABG pCO2 POC ABG pO2 ABG pO2 ABG HCO3 ABG Base Excess ABG Hemoglobin ABG Oxyhemoglobin ABG Potassium ABG Chloride ABG Glucose Oxyhemoglobin Carboxyhemoglobin Potassium 3.5 L D Chloride 108.4 H Carbon Dioxide BUN 33 H Creatinine 1.5 H Glucose 107 H POC Glucose Lactic Acid 2.20 H* Calcium 7.2 L D Magnesium Ferritin AST 220 H ALT 117 H Lactate Dehydrogenase Total Creatine Kinase Troponin T C-Reactive Protein Total Protein 5.5 L Albumin 3.0 L HDL Cholesterol Arterial Blood Glucose Arterial Blood Ionized Calcium Urine WBC (Auto) Salicylates Acetaminophen 09/10/20 09/11/20 09/11/20 10:34 00:46 03:08 RBC MCV MCHC Lymph % (Auto) Lymph # (Auto) Seg Neutrophils % Seg Neuts % (Manual) Lymphocytes % (Manual) Nucleated RBC % PT INR APTT D-Dimer ABG pH 7.521 H POC ABG pCO2 25.2 L POC ABG pO2 137.4 H ABG pO2 ABG HCO3 ABG Base Excess ABG Hemoglobin 10.2 L ABG Oxyhemoglobin 98.1 H ABG Potassium 3.1 L ABG Chloride 116.0 H ABG Glucose 123 H Oxyhemoglobin Carboxyhemoglobin Potassium Chloride Carbon Dioxide BUN Creatinine Glucose POC Glucose 124 H Lactic Acid 2.40 H* Calcium Magnesium Ferritin AST ALT Lactate Dehydrogenase Total Creatine Kinase Troponin T C-Reactive Protein Total Protein Albumin HDL Cholesterol Arterial Blood Glucose 123 H Arterial Blood Ionized Calcium 4.3 L Urine WBC (Auto) Salicylates Acetaminophen Assessment and Plan Assessment and Plan # Cardiac arrest -s/p cardiac resucitation -intubated and sedated -CT brain is unremarkable -UDS positive for Cocain -Patient treated" with ACLS protocol with eventual return of perfusing cardiac rhythm. # Anoxic brain injury -CT head is unremarkable - neuro check move all as per nurse -pt. is intubated and sedated on Propofol and Fentanyl -Suggest EEG off sedation if possible -Brain MRI # Sepsis -Sepsis protocol: CBC, CMP, chest x-ray, IV antibiotic therapy, IV fluid resuscitation therapy, monitor urine output every shift, IV pressor support, serial lactic acid level, maintain mean arterial pressure greater than equal 65, blood culture. # Acute hypoxemic respiratory failure -Patient intubated and ambulatory support, -wean vent as tolerated, -critical care team consulted in ED, - spontaneous breathing trial daily, -daily ABG, chest x-ray, # Metabolic acidosis -IV fluid resuscitation therapy, IV bicarbonate therapy, supportive care, BMP, repeat BMP in a.m. # Toxic metabolic encephalopathy -CT head, neuro check, treat sepsis, supportive care, IV fluid resuscitation therapy, serial lactic acid level. # Aspiration pneumonia Pneumonia protocol: Chest x-ray, CBC, CMP, IV antibiotic therapy, wean vent as tolerated. # DVT prophylaxis -SCD to bilateral lower extremities while in bed, prophylactic anticoagulation # Advance care planning -Disease education conducted, care plan discussed, diagnosis discussed, prognosis discussed, [x] Data Review and interpretation [x] Patient assessment and monitoring of vital signs [x] Documentation [x] Medication orders and management time spent 85 minutes ICU evaluation , review record . and labs and D/A nursing staff.
[2020-09-11 10:29] LABS: Hematocrit 30.6 % (30.3-42.9); Hemoglobin 10.4 gm/dl (10.1-14.3); Mean Corpuscular HGB Conc 34 % (30-34); Mean Corpuscular Volume 92 fl (79-97); Platelet Count 168 K/mm3 (140-440); Red Blood Count 3.33 M/mm3 (3.65-5.03); Red Cell Distribution Width 13.9 % (13.2-15.2)
[2020-09-11 10:47] LABS: BUN/Creatinine Ratio 30; Blood Urea Nitrogen 24 mg/dL (7-17); Calcium 8.1 mg/dL (8.4-10.2); Hemolysis Index 19
--- NOTE | 2020-09-11 11:07 | Electrocardiograph Report ---
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
[2020-09-11] MEDS ORDERED: POTASSIUM CHLORIDE 20 MEQ PACKET FEEDTUBE ONE (14:00)
[2020-09-11] MEDS ORDERED: POTASSIUM CHLORIDE ER 20 MEQ TAB PO ONE (14:37)
--- NOTE | 2020-09-11 15:54 | Progress Note ---
Assessment and Plan 25 YO Female with Asthma, morbid Obesity was bought to ER unresponsive. As per fianc the patient was in her usual state of health overnight while drinking alcohol with concomitant ingestion of ecstasy. Patient was found to be unresponsive in cardiac arrest, EMS was notified, Patient was intubated in the field. Patient initiated on ACLS protocol and subsequently transported to [facility] for further care and evaluation. CXR showed infiltrates, elevated troponin, UDS positive for cocaine/marijuana. Patient admitted to ICU and initiated on sepsis protocol. A/P --Sepsis with shock likely from aspiration PNA cont abx, follow Cx monitor lactic acid - trending down -- Acute hypoxemic respiratory failure Patient intubated and ambulatory support, wean vent as tolerated, critical care team consulted, spontaneous breathing trial daily, daily ABG, chest x-ray, -- Metabolic acidosis IV fluid resuscitation therapy, IV bicarbonate therapy, supportive care, BMP, repeat BMP in a.m. -- Toxic metabolic encephalopathy UDS +ve for cocaine/marijuana --S/P Cardiac arrest Patient treated" with ACLS protocol with eventual return of perfusion cardiac rhythm. -- Anoxic brain injury, suspected CT head w/o any acute process follow clinically, neurology consulted Ordered MRI brain, pending -- Aspiration pneumonia Pneumonia protocol: Chest x-ray, CBC, CMP, IV antibiotic therapy, wean vent as tolerated. ruled out for COVID with a negative test --Elevated troponin ordered 2d echo, elevated likely from cardiac arrest Cardiology consulted --Hyponatremia and hypokalemia Continue hypotonic fluids and replete electrolytes -- DVT prophylaxis SCD to bilateral lower extremities while in bed, prophylactic anticoagulation --Advance care planning Full code status The high probability of a clinically significant, sudden or life threatening deterioration of the [multi] system(s) required my full and direct attention, intervention and personal management. The aggregate critical care time was [35] minutes. This time is in addition to time spent performing reported procedures but includes the following: [x] Data Review and interpretation [x] Patient assessment and monitoring of vital signs [x] Documentation [x] Medication orders and management Daily clinical course: 09/10/20: follow pending COVID test, CC consulted, will follow clinically and wean off from vent and pressor as tolerated. neuro consult. cont iv fluid hydration 09/11/20: negative for covid, cont abx for aspiration PNA. Patient remains intubated, neurology consulted and recommended MRI of the brain. Continue supportive care. Follow BMP for hyponatremia, continue IV fluid hydration with free water with tube feeding. Subjective Date of service: 09/11/20 Principal diagnosis: Acute hypoxemic resp failure; Cardiac arrest with ROSC; Pneumonia; ANGELICA Interval history: patient seen and examined patient remains intubated noted vitals and discussed with RN at the bedside patient restarted on levophed Objective - Exam Narrative Exam: GENERAL: well-developed and obese -[place] female lying on bed intubated and sedated no discomfort. HEENT: Normocephalic. Atraumatic. No conjunctival congestion or icterus. Pa vinay has moist mucous membranes. NECK: Supple. Trachea midline. CHEST/LUNGS: on mechanical ventilation, positive few crackles HEART/CARDIOVASCULAR: Regular in rate and rhythm. S1 and S2 positive. ABDOMEN: Abdomen is soft, nontender. Patient has normal bowel sounds. SKIN: There is no rash. Warm and dry. NEURO: Sedated, moves extremities MUSCULOSKELETAL: No joint effusion or tenderness. EXTRIMITY: No edema, no cyanosis or clubbing. PSYCH: sedated - Constitutional Vitals: Vital Signs - 12hr 09/11/20 09/11/20 09/11/20 04:00 04:31 05:00 Temperature 97 F L Pulse Rate 57 L 60 53 L Pulse Rate [ From Monitor] Respiratory 25 H 25 H 25 H Rate Blood Pressure 99/42 99/42 104/46 O2 Sat by Pulse 100 100 100 Oximetry 09/11/20 09/11/20 09/11/20 05:31 06:00 06:31 Temperature Pulse Rate 61 59 L 60 Pulse Rate [ From Monitor] Respiratory 25 H 25 H 25 H Rate Blood Pressure 104/46 100/47 100/47 O2 Sat by Pulse 100 100 100 Oximetry 09/11/20 09/11/20 09/11/20 07:00 07:31 08:00 Temperature 98.0 F Pulse Rate 59 L 59 L 53 L Pulse Rate [ 58 L From Monitor] Respiratory 25 H 25 H 25 H Rate Blood Pressure 98/48 98/48 95/46 O2 Sat by Pulse 100 100 100 Oximetry 09/11/20 09/11/20 09/11/20 08:30 08:31 09:00 Temperature 98.7 F Pulse Rate 53 L 53 L Pulse Rate [ From Monitor] Respiratory 25 H 25 H Rate Blood Pressure 95/46 98/45 O2 Sat by Pulse 100 99 Oximetry 09/11/20 09/11/20 09/11/20 09:31 10:00 10:30 Temperature Pulse Rate 53 L 53 L 67 Pulse Rate [ From Monitor] Respiratory 25 H 25 H 25 H Rate Blood Pressure 98/45 105/62 104/55 O2 Sat by Pulse 100 99 Oximetry 09/11/20 09/11/20 09/11/20 11:00 11:15 11:30 Temperature Pulse Rate 52 L 52 L 60 Pulse Rate [ From Monitor] Respiratory 25 H 25 H Rate Blood Pressure 110/61 110/61 107/61 O2 Sat by Pulse 100 100 100 Oximetry 09/11/20 09/11/20 09/11/20 12:00 12:30 13:15 Temperature 98.8 F Pulse Rate 54 L 56 L 56 L Pulse Rate [ 62 From Monitor] Respiratory 25 H 25 H Rate Blood Pressure 103/61 111/67 111/67 O2 Sat by Pulse 100 100 100 Oximetry 09/11/20 15:33 Temperature Pulse Rate 68 Pulse Rate [ From Monitor] Respiratory Rate Blood Pressure 114/69 O2 Sat by Pulse 100 Oximetry - Labs CBC & Chem 7: 09/13/20 04:45 09/13/20 04:45 Labs: Abnormal lab results 09/11/20 09/11/20 09/11/20 Range/Units 00:46 03:08 10:04 WBC (4.5-11.0) K/mm3 RBC (3.65-5.03) M/mm3 ABG pH 7.521 H (7.320-7.450) POC ABG pCO2 25.2 L (32.0-48.0) mmHg POC ABG pO2 137.4 H (83-108) mmHg ABG Hemoglobin 10.2 L (12.0-17.5) ABG Oxyhemoglobin 98.1 H (94-98) ABG Potassium 3.1 L (3.40-4.50) mmol/L ABG Chloride 116.0 H (98-107) mmol/L ABG Glucose 123 H (65-95) mg/dL Sodium 147 H (137-145) mmol/L Potassium 3.3 L (3.6-5.0) mmol/L Chloride 115.6 H (98-107) mmol/L BUN 24 H (7-17) mg/dL Glucose 110 H (65-100) mg/dL POC Glucose 124 H (70-105) mg/dL Calcium 8.1 L (8.4-10.2) mg/dL Arterial Blood Glucose 123 H (65-95) mg/dL Arterial Blood Ionized Calcium 4.3 L (4.6-5.3) mg/dL 09/11/20 09/11/20 Range/Units 10:04 12:00 WBC 16.7 H (4.5-11.0) K/mm3 RBC 3.33 L (3.65-5.03) M/mm3 ABG pH (7.320-7.450) POC ABG pCO2 (32.0-48.0) mmHg POC ABG pO2 (83-108) mmHg ABG Hemoglobin (12.0-17.5) ABG Oxyhemoglobin (94-98) ABG Potassium (3.40-4.50) mmol/L ABG Chloride (98-107) mmol/L ABG Glucose (65-95) mg/dL Sodium (137-145) mmol/L Potassium (3.6-5.0) mmol/L Chloride (98-107) mmol/L BUN (7-17) mg/dL Glucose (65-100) mg/dL POC Glucose 122 H (70-105) mg/dL Calcium (8.4-10.2) mg/dL Arterial Blood Glucose (65-95) mg/dL Arterial Blood Ionized Calcium (4.6-5.3) mg/dL HEART Score - HEART Score Troponin: Troponin T 0.174 ng/mL (0.00-0.029) H* D 09/09/20 16:39
--- NOTE | 2020-09-11 15:58 | Progress Note ---
Assessment and Plan Acute hypoxemic respiratory failure on MVS Cardiac arrest with return of spontaneous circulation Bilateral pneumonia Person under investigation for COVID-19 infection Obesity Drug abuse and overdose Severe metabolic acidosis Hypercapnia Hyperkalemia Acute kidney injury, possibly on chronic Lactic acidosis Elevated serum ferritin Elevated serum troponin Oropharyngeal dysphagia - follow 2D ECHO - begin Seroquel to spare IV sedation and aid weaning - potassium replaced - neurology evaluation ongoing - follw EEG report - continue enteral nutrition - continue care as below otherwise; - continue Daily SAT and SBT assessment as tolerated - continue to wean supplemental oxygen for target O2 sat's > 90% acutely - VAP bundle addressed - continue lung protective strategies - continue bronchodilators with pulmonary hygiene per RT - wean per pulmonary driven protocols otherwise - continue accuchecks with glycemic control per SSI (While critically ill target blood glucose of 140-180 mg/dL; avoid hypoglycemia) - sedation prn for target RASS 0 to -1 - avoid nephrotoxins, renally dose all medications - continue to avoid benzodiazepine's, reduce the possibility of delirium - completed AB's per ID rec's - prn analgesia per CPOT score - Maintenance of sleep-wake cycle, avoid delirium - enteral nutritional support at goal rate as tolerated - G.I. & VTE prophylaxis - PT/OT/ROM exercises - continue mobility protocols for pressure ulcer prophylaxis - Monitor hemodynamics closely - continue other care per attending / other consultants - discharge planning ongoing concurrently COVID SPECIFIC INTERVENTIONS - COVID-19 PCR negative .... Re-evaluate in am & prn CONDITION: CRITICAL PROGNOSIS: GUARDED CODE STATUS: FULL CODE The high probability of a clinically significant, sudden or life-threatening deterioration of the [respiratory, cardiovascular & neurologic] system(s) required my full and direct attention, intervention and personal management. The aggregate critical care time was [34] minutes without overlap. Time includes spent on; [x] Data Review and interpretation [x] Patient assessment and monitoring of vital signs [x] Documentation [x] Medication orders and management Subjective Date of service: 09/11/20 Principal diagnosis: Acute hypoxemic resp failure; Cardiac arrest with ROSC; Pneumonia; ANGELICA Interval history: Patient is seen today for: Acute hypoxemic respiratory failure; Cardiac arrest with ROSC; Pneumonia; ANGELICA Seen and examined at bedside; 24hour events reviewed; nursing and respiratory care staff consulted; no adverse overnight events reported to me; resting in bed; remains on MVS; tolerated SBT for 2 hours but failed with hypoventiulation and agitation control issues; s/p EEG; neurology and cardiology evaluation started; K+ replaced Objective Vital Signs - 12hr 09/11/20 09/11/20 09/11/20 04:00 04:31 05:00 Temperature 97 F L Pulse Rate 57 L 60 53 L Pulse Rate [ From Monitor] Respiratory 25 H 25 H 25 H Rate Blood Pressure 99/42 99/42 104/46 O2 Sat by Pulse 100 100 100 Oximetry 09/11/20 09/11/20 09/11/20 05:31 06:00 06:31 Temperature Pulse Rate 61 59 L 60 Pulse Rate [ From Monitor] Respiratory 25 H 25 H 25 H Rate Blood Pressure 104/46 100/47 100/47 O2 Sat by Pulse 100 100 100 Oximetry 09/11/20 09/11/20 09/11/20 07:00 07:31 08:00 Temperature 98.0 F Pulse Rate 59 L 59 L 53 L Pulse Rate [ 58 L From Monitor] Respiratory 25 H 25 H 25 H Rate Blood Pressure 98/48 98/48 95/46 O2 Sat by Pulse 100 100 100 Oximetry 09/11/20 09/11/20 09/11/20 08:30 08:31 09:00 Temperature 98.7 F Pulse Rate 53 L 53 L Pulse Rate [ From Monitor] Respiratory 25 H 25 H Rate Blood Pressure 95/46 98/45 O2 Sat by Pulse 100 99 Oximetry 09/11/20 09/11/20 09/11/20 09:31 10:00 10:30 Temperature Pulse Rate 53 L 53 L 67 Pulse Rate [ From Monitor] Respiratory 25 H 25 H 25 H Rate Blood Pressure 98/45 105/62 104/55 O2 Sat by Pulse 100 99 Oximetry 09/11/20 09/11/20 09/11/20 11:00 11:15 11:30 Temperature Pulse Rate 52 L 52 L 60 Pulse Rate [ From Monitor] Respiratory 25 H 25 H Rate Blood Pressure 110/61 110/61 107/61 O2 Sat by Pulse 100 100 100 Oximetry 09/11/20 09/11/20 09/11/20 12:00 12:30 13:15 Temperature 98.8 F Pulse Rate 54 L 56 L 56 L Pulse Rate [ 62 From Monitor] Respiratory 25 H 25 H Rate Blood Pressure 103/61 111/67 111/67 O2 Sat by Pulse 100 100 100 Oximetry 09/11/20 15:33 Temperature Pulse Rate 68 Pulse Rate [ From Monitor] Respiratory Rate Blood Pressure 114/69 O2 Sat by Pulse 100 Oximetry Constitutional: appears uncomfortable, other (young lady with mildly increased respiratory effort at rest on MVS) Eyes: non-icteric ENT: oropharynx moist, other (ETT 24 cm APOLINAR) Neck: supple, no lymphadenopathy, no JVD Effort: mildly labored Ascultation: Bilateral: rhonchi (scant) Percussion: Bilateral: not dull Cardiovascular: regular rate and rhythm Gastrointestinal: normoactive bowel sounds, soft, non-tender, non-distended (protuberant) Integumentary: normal Extremities: no cyanosis, no edema, pulses normal, no ischemia or petechiae Neurologic: non-focal exam (grossly), pupils equal and round, motor strength normal and, unable to assess Psychiatric: other (delirious / agitated during SAT's) CBC and BMP: 09/11/20 10:04 09/11/20 10:04 ABG, PT/INR, D-dimer: ABG ABG pH 7.521 (7.320-7.450) H 09/11/20 03:08 POC ABG pCO2 25.2 mmHg (32.0-48.0) L 09/11/20 03:08 ABG pCO2 39.1 mm Hg 09/09/20 17:05 POC ABG pO2 137.4 mmHg (83-108) H 09/11/20 03:08 ABG pO2 143.7 mm Hg (80.0-90.0) H 09/09/20 17:05 POC ABG HCO3 20.2 09/11/20 03:08 ABG O2 Saturation 99.0 (0-100) 09/11/20 03:08 PT/INR, D-dimer PT 19.2 Sec. (12.2-14.9) H 09/09/20 10:42 INR 1.57 (0.87-1.13) H 09/09/20 10:42 D-Dimer 5936.95 ng/mlDDU (0-234) H 09/09/20 14:31 Abnormal lab findings: Abnormal Labs 09/09/20 09/09/20 09/09/20 10:42 10:42 10:42 WBC RBC MCV 100 H MCHC Lymph % (Auto) Lymph # (Auto) Seg Neutrophils % Seg Neuts % (Manual) 33.0 L Lymphocytes % (Manual) 41.0 H Nucleated RBC % 1.0 H PT 19.2 H INR 1.57 H APTT 42.5 H D-Dimer ABG pH POC ABG pCO2 POC ABG pO2 ABG pO2 ABG HCO3 ABG Base Excess ABG Hemoglobin ABG Oxyhemoglobin ABG Potassium ABG Chloride ABG Glucose Oxyhemoglobin Carboxyhemoglobin Sodium Potassium 5.4 H Chloride Carbon Dioxide 17 L BUN 25 H Creatinine 2.5 H Glucose 205 H POC Glucose Lactic Acid Calcium Magnesium Ferritin AST 60 H ALT Lactate Dehydrogenase Total Creatine Kinase Troponin T 0.092 H C-Reactive Protein Total Protein 5.3 L Albumin 3.0 L HDL Cholesterol Arterial Blood Glucose Arterial Blood Ionized Calcium Urine WBC (Auto) Salicylates Acetaminophen 09/09/20 09/09/20 09/09/20 10:42 10:42 10:42 WBC RBC MCV MCHC Lymph % (Auto) Lymph # (Auto) Seg Neutrophils % Seg Neuts % (Manual) Lymphocytes % (Manual) Nucleated RBC % PT INR APTT D-Dimer ABG pH POC ABG pCO2 POC ABG pO2 ABG pO2 ABG HCO3 ABG Base Excess ABG Hemoglobin ABG Oxyhemoglobin ABG Potassium ABG Chloride ABG Glucose Oxyhemoglobin Carboxyhemoglobin Sodium Potassium Chloride Carbon Dioxide BUN Creatinine Glucose POC Glucose Lactic Acid 16.60 H* Calcium Magnesium 3.30 H Ferritin AST ALT Lactate Dehydrogenase Total Creatine Kinase 166 H Troponin T C-Reactive Protein Total Protein Albumin HDL Cholesterol Arterial Blood Glucose Arterial Blood Ionized Calcium Urine WBC (Auto) Salicylates Acetaminophen 09/09/20 09/09/20 09/09/20 10:42 10:42 11:30 WBC RBC MCV MCHC Lymph % (Auto) Lymph # (Auto) Seg Neutrophils % Seg Neuts % (Manual) Lymphocytes % (Manual) Nucleated RBC % PT INR APTT D-Dimer ABG pH 6.919 L* POC ABG pCO2 POC ABG pO2 ABG pO2 127.2 H ABG HCO3 10.3 L ABG Base Excess -21.7 L ABG Hemoglobin 10.8 L ABG Oxyhemoglobin ABG Potassium ABG Chloride ABG Glucose Oxyhemoglobin 94.2 L Carboxyhemoglobin Sodium Potassium Chloride Carbon Dioxide BUN Creatinine Glucose POC Glucose Lactic Acid Calcium Magnesium Ferritin AST ALT Lactate Dehydrogenase Total Creatine Kinase Troponin T C-Reactive Protein Total Protein Albumin HDL Cholesterol Arterial Blood Glucose Arterial Blood Ionized Calcium Urine WBC (Auto) Salicylates < 0.3 L Acetaminophen 5.0 L 09/09/20 09/09/20 09/09/20 14:31 14:31 14:31 WBC RBC MCV MCHC Lymph % (Auto) Lymph # (Auto) Seg Neutrophils % Seg Neuts % (Manual) Lymphocytes % (Manual) Nucleated RBC % PT INR APTT D-Dimer 5936.95 H ABG pH POC ABG pCO2 POC ABG pO2 ABG pO2 ABG HCO3 ABG Base Excess ABG Hemoglobin ABG Oxyhemoglobin ABG Potassium ABG Chloride ABG Glucose Oxyhemoglobin Carboxyhemoglobin Sodium Potassium Chloride Carbon Dioxide BUN Creatinine Glucose POC Glucose Lactic Acid Calcium Magnesium Ferritin AST ALT Lactate Dehydrogenase 513 H Total Creatine Kinase Troponin T 0.140 H* D C-Reactive Protein 3.80 H Total Protein Albumin HDL Cholesterol 31 L Arterial Blood Glucose Arterial Blood Ionized Calcium Urine WBC (Auto) Salicylates Acetaminophen 09/09/20 09/09/20 09/09/20 14:31 14:31 16:39 WBC RBC MCV MCHC Lymph % (Auto) Lymph # (Auto) Seg Neutrophils % Seg Neuts % (Manual) Lymphocytes % (Manual) Nucleated RBC % PT INR APTT D-Dimer ABG pH POC ABG pCO2 POC ABG pO2 ABG pO2 ABG HCO3 ABG Base Excess ABG Hemoglobin ABG Oxyhemoglobin ABG Potassium ABG Chloride ABG Glucose Oxyhemoglobin Carboxyhemoglobin Sodium Potassium Chloride Carbon Dioxide BUN Creatinine Glucose POC Glucose Lactic Acid 7.20 H* Calcium Magnesium Ferritin 1995.0 H AST ALT Lactate Dehydrogenase Total Creatine Kinase Troponin T 0.174 H* D C-Reactive Protein Total Protein Albumin HDL Cholesterol Arterial Blood Glucose Arterial Blood Ionized Calcium Urine WBC (Auto) Salicylates Acetaminophen 09/09/20 09/09/20 09/10/20 17:05 Unknown 04:19 WBC RBC MCV MCHC Lymph % (Auto) Lymph # (Auto) Seg Neutrophils % Seg Neuts % (Manual) Lymphocytes % (Manual) Nucleated RBC % PT INR APTT D-Dimer ABG pH 7.278 L 7.497 H POC ABG pCO2 25.0 L POC ABG pO2 ABG pO2 143.7 H ABG HCO3 17.9 L ABG Base Excess -8.3 L ABG Hemoglobin 11.6 L ABG Oxyhemoglobin ABG Potassium ABG Chloride 112.0 H ABG Glucose 113 H Oxyhemoglobin Carboxyhemoglobin 0.3 L Sodium Potassium Chloride Carbon Dioxide BUN Creatinine Glucose POC Glucose Lactic Acid Calcium Magnesium Ferritin AST ALT Lactate Dehydrogenase Total Creatine Kinase Troponin T C-Reactive Protein Total Protein Albumin HDL Cholesterol Arterial Blood Glucose 113 H Arterial Blood Ionized Calcium Urine WBC (Auto) 7.0 H Salicylates Acetaminophen 09/10/20 09/10/20 09/10/20 04:42 04:42 04:42 WBC RBC 3.64 L MCV MCHC 35 H Lymph % (Auto) 11.0 L Lymph # (Auto) 0.9 L Seg Neutrophils % 82.7 H Seg Neuts % (Manual) Lymphocytes % (Manual) Nucleated RBC % PT INR APTT D-Dimer ABG pH POC ABG pCO2 POC ABG pO2 ABG pO2 ABG HCO3 ABG Base Excess ABG Hemoglobin ABG Oxyhemoglobin ABG Potassium ABG Chloride ABG Glucose Oxyhemoglobin Carboxyhemoglobin Sodium Potassium 3.5 L D Chloride 108.4 H Carbon Dioxide BUN 33 H Creatinine 1.5 H Glucose 107 H POC Glucose Lactic Acid 2.20 H* Calcium 7.2 L D Magnesium Ferritin AST 220 H ALT 117 H Lactate Dehydrogenase Total Creatine Kinase Troponin T C-Reactive Protein Total Protein 5.5 L Albumin 3.0 L HDL Cholesterol Arterial Blood Glucose Arterial Blood Ionized Calcium Urine WBC (Auto) Salicylates Acetaminophen 09/10/20 09/11/20 09/11/20 10:34 00:46 03:08 WBC RBC MCV MCHC Lymph % (Auto) Lymph # (Auto) Seg Neutrophils % Seg Neuts % (Manual) Lymphocytes % (Manual) Nucleated RBC % PT INR APTT D-Dimer ABG pH 7.521 H POC ABG pCO2 25.2 L POC ABG pO2 137.4 H ABG pO2 ABG HCO3 ABG Base Excess ABG Hemoglobin 10.2 L ABG Oxyhemoglobin 98.1 H ABG Potassium 3.1 L ABG Chloride 116.0 H ABG Glucose 123 H Oxyhemoglobin Carboxyhemoglobin Sodium Potassium Chloride Carbon Dioxide BUN Creatinine Glucose POC Glucose 124 H Lactic Acid 2.40 H* Calcium Magnesium Ferritin AST ALT Lactate Dehydrogenase Total Creatine Kinase Troponin T C-Reactive Protein Total Protein Albumin HDL Cholesterol Arterial Blood Glucose 123 H Arterial Blood Ionized Calcium 4.3 L Urine WBC (Auto) Salicylates Acetaminophen 09/11/20 09/11/20 09/11/20 10:04 10:04 12:00 WBC 16.7 H RBC 3.33 L MCV MCHC Lymph % (Auto) Lymph # (Auto) Seg Neutrophils % Seg Neuts % (Manual) Lymphocytes % (Manual) Nucleated RBC % PT INR APTT D-Dimer ABG pH POC ABG pCO2 POC ABG pO2 ABG pO2 ABG HCO3 ABG Base Excess ABG Hemoglobin ABG Oxyhemoglobin ABG Potassium ABG Chloride ABG Glucose Oxyhemoglobin Carboxyhemoglobin Sodium 147 H Potassium 3.3 L Chloride 115.6 H Carbon Dioxide BUN 24 H Creatinine Glucose 110 H POC Glucose 122 H Lactic Acid Calcium 8.1 L Magnesium Ferritin AST ALT Lactate Dehydrogenase Total Creatine Kinase Troponin T C-Reactive Protein Total Protein Albumin HDL Cholesterol Arterial Blood Glucose Arterial Blood Ionized Calcium Urine WBC (Auto) Salicylates Acetaminophen Chest x-ray: pending Allied health notes reviewed: nursing
--- NOTE | 2020-09-11 17:28 | Consultation ---
History of Present Illness Consult date: 09/11/20 History of present illness: Patient is 25 y/o female with a history of asthma who was brought to the ED on 09/09/2020for cardiac arrest. Patient is intubated and sedated at time of interview therefore history is obtained per chart. [facility] while drinking alcohol and taking ecstasy. Ems was notified that the patient was unresponsive and found to be apneic. Patient was intubated, in cardiac arrest(unknown rhythm) , ACLS was performed and patient transported to hospital. Patient was found to have anoxic brain injury and to be in septic shock. Cardiology consulted for cardiac arrest Past History Past Medical History: other (See HPI) Past Surgical History: No surgical history, Other (Reviewed) Social history: single Family history: diabetes, hypertension Medications and Allergies Allergies Allergy/AdvReac Type Severity Reaction Status Date / Time No Known Allergies Allergy Unverified 12/10/18 09:39 Home Medications Medication Instructions Recorded Confirmed Last Taken Type Ibuprofen [Motrin 800 MG tab] 800 mg PO Q8HR PRN #30 tablet 12/10/18 09/09/20 Unknown Rx Active Meds: Active Medications Acetaminophen (Acetaminophen 325 Mg Tab) 650 mg PO Q6H PRN PRN Reason: Pain MILD(1-3)/Fever >100.5/CHERRY Lipase/Protease/Amylase (Lipase 10,500/Protease 25,000/Amylase 43,750 (Units) Dr Vásquez) 1 each FEEDTUBE PRN PRN PRN Reason: For Clogged Feeding Tube Famotidine (Famotidine 20 Mg Tab) 20 mg PO BID [facility] Last Admin: 09/11/20 09:32 Dose: 20 mg Documented by: Fentanyl (Fentanyl 100 Mcg/2 Ml Inj) 50 mcg IV Q10MIN PRN PRN Reason: ANALGESIA Last Admin: 09/10/20 09:54 Dose: 50 mcg Documented by: Heparin Sodium (Porcine) (Heparin 5,000 Unit/1 Ml Vial) 5,000 unit SUB-Q Q12HR [facility] Last Admin: 09/11/20 09:32 Dose: 5,000 unit Documented by: Hydromorphone HCl (Hydromorphone 1 Mg/1 Ml Inj) 0.5 mg IV Q12HR PRN PRN Reason: Pain , Severe (7-10) Hydrophilic Ointment (Lip Therapy Vaseline) 1 applic TP Q2HR PRN PRN Reason: Dry Lips Norepinephrine (Levophed Drip 4 Mg/Ns 250 Ml) 4 mg in 250 mls @ 7.5 mls/hr IV TITR LORENE; Protocol Last Titration: 09/11/20 09:33 Dose: 2 mcg/min, 7.5 mls/hr Documented by: Fentanyl Citrate (Fentanyl Drip Premix) 2,000 mcg in 100 mls @ 3.674 mls/hr IV TITR LORENE; Protocol Last Admin: 09/11/20 10:37 Dose: 4 mcg/kg/hr, 14.696 mls/hr Documented by: Propofol (Diprivan 10 Mg/Ml) 1,000 mg in 100 mls @ 2.204 mls/hr IV TITR LORENE; Protocol Last Admin: 09/11/20 01:49 Dose: 5 mcg/kg/min, 2.204 mls/hr Documented by: Multi-Ingred Cream/Lotion/Oil/Oint (Mineral Oil/Petrolatum, White Ophth Oint 3.5 Gm) 1 applic OU Q4HR PRN PRN Reason: Dry Eye(s) Oxycodone/Acetaminophen (Oxycodone /Acetaminophen 5-325mg Tab) 1 tab PO Q12H PRN PRN Reason: Pain, Moderate (4-6) Senna/Docusate Sodium (Sennosides/Docusate Sodium 8.6/50 Mg Tab) 1 tab FEEDTUBE BID [facility] Last Admin: 09/11/20 09:32 Dose: 1 tab Documented by: Simple Syrup (Simple Syrup 15 Ml) 15 ml FEEDTUBE PRN PRN PRN Reason: Hypoglycemia Simple Syrup (Simple Syrup 15 Ml) 30 ml FEEDTUBE PRN PRN PRN Reason: Hypoglycemia Sodium Bicarbonate (Sodium Bicarbonate 325 Mg Tab) 325 mg FEEDTUBE PRN PRN PRN Reason: For Clogged Feeding Tube Sodium Chloride (Sodium Chloride 0.9% 10 Ml Flush Syringe) 10 ml IV BID [facility] Last Admin: 09/11/20 09:32 Dose: 10 ml Documented by: Sodium Chloride (Sodium Chloride 0.9% 10 Ml Flush Syringe) 10 ml IV PRN PRN PRN Reason: LINE FLUSH Review of Systems ROS unobtainable: due to endotracheal tube, due to mental status Physical Examination Last Vital Signs Temp 98.8 F 09/11/20 12:00 Pulse 68 09/11/20 15:33 Resp 25 H 09/11/20 12:30 BP 114/69 09/11/20 15:33 Pulse Ox 100 09/11/20 15:33 General appearance: other (patient intubated and sedated) HEENT: Positive: Normocephaly Neck: Positive: trachea midline Cardiac: Positive: Reg Rate and Rhythm Lungs: Positive: Ventilated Respirations Neuro: Positive: Other (unble to assess) Abdomen: Positive: Soft, Active Bowel Sounds Skin: Negative: Rash, Suspicious Lesions Extremities: Present: upper extr. pulses, lower extr. pulses, +1 Edema Results 09/11/20 10:04 09/11/20 10:04 CBC 09/11/20 Range/Units 10:04 WBC 16.7 H (4.5-11.0) K/mm3 RBC 3.33 L (3.65-5.03) M/mm3 Hgb 10.4 (10.1-14.3) gm/dl Hct 30.6 (30.3-42.9) % Plt Count 168 (140-440) K/mm3 Comprehensive Metabolic Panel 09/11/20 Range/Units 10:04 Sodium 147 H (137-145) mmol/L Potassium 3.3 L (3.6-5.0) mmol/L Chloride 115.6 H (98-107) mmol/L Carbon Dioxide 22 (22-30) mmol/L BUN 24 H (7-17) mg/dL Creatinine 0.8 (0.6-1.2) mg/dL Glucose 110 H (65-100) mg/dL Calcium 8.1 L (8.4-10.2) mg/dL - Imaging and Cardiology Echo: pending EKG: report reviewed, image reviewed EKG interpretations - Telemetry EKG Rhythm: Sinus Rhythm - EKG Sinus rhythms and dysrhythmias: sinus rhythm Repolarization changes or abnormalities: Q-T interval prolongation Assessment and Plan Status post cardiac arrest Elevated troponin * Post arrest 12 lead EKG shows Sinus 77 with prolonged QTc 639. Continue to monitor on tele. * Avoid QT prolonging medications * Check Mg+, replete K+ * Troponins elevated 0.17. Trend Cardiac ezymes * Echo pending Acute hypoxic respiratory failure Sepsis * Currently intubated * Pulmonology following Anoxic Brain injury * Neuro consulted Substance Use * Patient tested positive for marijuana and cocaine * No beta blockers DVT Prophylaxis * Manage per primary team * Patient on Heparin SQ Patient seen in conjunction with Dr. Tatum Sumner who agrees with this plan of care. Will continue to follow 30min of critical care time spent in care and coordination of this patient - Patient Problems (1) Acute hypoxemic respiratory failure Current Visit: Yes Status: Acute (2) Anoxic brain injury Current Visit: Yes Status: Acute (3) Cardiac arrest Current Visit: Yes Status: Acute (4) Cardiac arrest with successful resuscitation Current Visit: Yes Status: Acute (5) Cocaine abuse Current Visit: Yes Status: Acute (6) DVT prophylaxis Current Visit: Yes Status: Acute (7) Marijuana use Current Visit: Yes Status: Acute (8) Metabolic acidosis Current Visit: Yes Status: Acute (9) Sepsis Current Visit: Yes Status: Acute (10) Toxic metabolic encephalopathy Current Visit: Yes Status: Acute
[2020-09-11] MEDS: SERTRALINE 50 MG TAB PO SCH (21:42)
[2020-09-11] MEDS ORDERED: QUEtiapine 100 MG TAB PO SCH (22:00)
--- NOTE | 2020-09-12 02:39 | XRay Report ---
CHEST 1 VIEW 09/11/2020 11:54 PM INDICATION / CLINICAL INFORMATION: follow up respiratory failure. COMPARISON: 09/11/20 FINDINGS: SUPPORT DEVICES: Unchanged. HEART / MEDIASTINUM: No significant abnormality. LUNGS / PLEURA: Slight increase in patchy density in the right upper lobe with persistent patchy dens ity in the right middle lobe. No pneumothorax. ADDITIONAL FINDINGS: No significant additional findings. IMPRESSION: 1. Interval worsening. Signer Name: Elida Mueller MD Signed: 09/12/2020 2:35 AM Workstation Name: [email or web address]
[2020-09-12 05:47] LABS: BUN/Creatinine Ratio 22; Blood Urea Nitrogen 22 mg/dL (7-17); Calcium 8.5 mg/dL (8.4-10.2); Hemolysis Index 3
[2020-09-12] MEDS: fentaNYL DRIP Premix 2,000 MCG/100 ML BAG IV SCH (05:54)
[2020-09-12] MEDS ORDERED: DEXTROSE 5% IN WATER 1,000 ML IV SCH (09:00)
[2020-09-12] MEDS: SENNOSIDES/DOCUSATE SODIUM 8.6/50 MG TAB FEEDTUBE SCH ×2 (09:51→21:29)
[2020-09-12] MEDS: SERTRALINE 50 MG TAB PO SCH ×2 (09:51→21:29)
[2020-09-12] MEDS: FAMOTIDINE 20 MG TAB PO SCH ×2 (09:51→21:29)
[2020-09-12] MEDS: HEPARIN 5,000 UNIT/1 ML VIAL SUB-Q SCH ×2 (09:51→21:29)
--- NOTE | 2020-09-12 11:35 | Progress Note ---
Assessment and Plan Status post cardiac arrest Elevated troponin Prolong QT * Post arrest 12 lead EKG shows Sinus 77 with prolonged QTc 639. Continue to monitor on tele. * 09/12/2011- 12 Lead EKG shows Prolong QT but with improvement QT 541 * 09/12/2020 EKG in not significantly different with QTc of 541 * Avoid QT prolonging medications * Troponins elevated 0.17. Trend Cardiac ezymes * Echo 09/11/2020 -EF 50 to 55%, left ventricle is mildly dilated, right ventricular systolic function is normal, left and right atrium normal size Acute hypoxic respiratory failure Sepsis * Currently intubated * Pulmonology following Anoxic Brain injury * Neuro consulted * BRINA Pending Substance Use * Patient tested positive for marijuana and cocaine * No beta blockers DVT Prophylaxis * Manage per primary team * Patient on Heparin SQ Patient seen in conjunction with Dr. Tatum Sumner who agrees with this plan of care. Will continue to follow 30min of critical care time spent in care and coordination of this patient - Patient Problems (1) Acute hypoxemic respiratory failure Current Visit: Yes Status: Acute (2) Anoxic brain injury Current Visit: Yes Status: Acute (3) Cardiac arrest Current Visit: Yes Status: Acute (4) Cardiac arrest with successful resuscitation Current Visit: Yes Status: Acute (5) Cocaine abuse Current Visit: Yes Status: Acute (6) DVT prophylaxis Current Visit: Yes Status: Acute (7) Marijuana use Current Visit: Yes Status: Acute (8) Metabolic acidosis Current Visit: Yes Status: Acute (9) Sepsis Current Visit: Yes Status: Acute (10) Toxic metabolic encephalopathy Current Visit: Yes Status: Acute Subjective Date of service: 09/12/20 Principal diagnosis: Acute hypoxemic resp failure; Cardiac arrest with ROSC; Pneumonia; ANGELICA Interval history: Patient intubated and sedated Sinus bradycardic 50s with no events on monitor Objective Last Vital Signs Temp 97.9 F 09/12/20 07:38 Pulse 56 L 09/12/20 07:23 Resp 16 09/12/20 07:00 BP 125/76 09/12/20 07:23 Pulse Ox 99 09/12/20 07:23 - Physical Examination General: Other (Patient intubated and sedated) HEENT: Positive: Normocephaly Neck: Positive: trachea midline Cardiac: Positive: Regular Rhythm, Bradycardia Lungs: Positive: Ventilated Respirations Neuro: Positive: Other (unble to assess) Abdomen: Positive: Soft, Active Bowel Sounds Skin: Negative: Rash, Suspicious Lesions Extremities: Present: upper extr. pulses, lower extr. pulses, +1 Edema - Labs and Meds Comprehensive Metabolic Panel 09/12/20 Range/Units 04:56 Sodium 150 H (137-145) mmol/L Potassium 4.0 D (3.6-5.0) mmol/L Chloride 118.1 H (98-107) mmol/L Carbon Dioxide 25 (22-30) mmol/L BUN 22 H (7-17) mg/dL Creatinine 1.0 (0.6-1.2) mg/dL Glucose 113 H (65-100) mg/dL Calcium 8.5 (8.4-10.2) mg/dL - Imaging and Cardiology EKG: report reviewed, image reviewed Echo: report reviewed - Telemetry EKG Rhythm: Sinus Bradycardia - EKG Sinus rhythms and dysrhythmias: sinus rhythm Repolarization changes or abnormalities: Q-T interval prolongation - Allied health notes Allied health notes reviewed: nursing
--- NOTE | 2020-09-12 12:59 | Electrocardiograph Report ---
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
[2020-09-12] MEDS: AMPICILLIN/SULBACTA 1.5GM/50ML 1.5 GM/50 ML BAG IV SCH ×3 (13:04→22:21)
--- NOTE | 2020-09-12 13:33 | Progress Note ---
Assessment and Plan Acute hypoxemic respiratory failure on MVS Cardiac arrest with return of spontaneous circulation Bilateral pneumonia Person under investigation for COVID-19 infection Obesity Drug abuse and overdose Severe metabolic acidosis Hypercapnia Hyperkalemia Acute kidney injury, possibly on chronic Lactic acidosis Elevated serum ferritin Elevated serum troponin Oropharyngeal dysphagia - placed on another SBT - get ABG after 2 hours if tolerates - continue Seroquel to spare IV sedation and aid weaning - neurology evaluation ongoing (follow MRI) - continue care as below otherwise; - continue Daily SAT and SBT assessment as tolerated - continue to wean supplemental oxygen for target O2 sat's > 90% acutely - VAP bundle addressed - continue lung protective strategies - continue bronchodilators with pulmonary hygiene per RT - wean per pulmonary driven protocols otherwise - continue accuchecks with glycemic control per SSI (While critically ill target blood glucose of 140-180 mg/dL; avoid hypoglycemia) - sedation prn for target RASS 0 to -1 - avoid nephrotoxins, renally dose all medications - continue to avoid benzodiazepine's, reduce the possibility of delirium - completed AB's per ID rec's - prn analgesia per CPOT score - Maintenance of sleep-wake cycle, avoid delirium - enteral nutritional support at goal rate as tolerated - G.I. & VTE prophylaxis - PT/OT/ROM exercises - continue mobility protocols for pressure ulcer prophylaxis - Monitor hemodynamics closely - continue other care per attending / other consultants - discharge planning ongoing concurrently COVID SPECIFIC INTERVENTIONS - COVID-19 PCR negative .... Re-evaluate in am & prn CONDITION: CRITICAL PROGNOSIS: GUARDED CODE STATUS: FULL CODE The high probability of a clinically significant, sudden or life-threatening deterioration of the [respiratory, cardiovascular & neurologic] system(s) required my full and direct attention, intervention and personal management. The aggregate critical care time was [32] minutes without overlap. Time includes spent on; [x] Data Review and interpretation [x] Patient assessment and monitoring of vital signs [x] Documentation [x] Medication orders and management Subjective Date of service: 09/12/20 Principal diagnosis: Acute hypoxemic resp failure; Cardiac arrest with ROSC; Pneumonia; ANGELICA Interval history: Patient is seen today for: Acute hypoxemic respiratory failure; Cardiac arrest with ROSC; Pneumonia; ANGELICA Seen and examined at bedside; 24hour events reviewed; nursing and respiratory care staff consulted; no adverse overnight events reported to me; resting in bed; remains on MVS; failing SBT's; s/p MRI; AMS is persistent, ? delirium; on full support at time of my exam Objective Vital Signs - 12hr 09/12/20 09/12/20 09/12/20 02:00 02:31 03:00 Temperature Pulse Rate 59 L 54 L 55 L Pulse Rate [ From Monitor] Respiratory 16 15 16 Rate Blood Pressure 102/56 107/59 102/59 O2 Sat by Pulse 100 100 100 Oximetry 09/12/20 09/12/20 09/12/20 03:17 03:30 04:00 Temperature 98.9 F Pulse Rate 52 L 53 L Pulse Rate [ 53 L From Monitor] Respiratory 16 16 Rate Blood Pressure 110/62 108/61 O2 Sat by Pulse 100 100 Oximetry 09/12/20 09/12/20 09/12/20 04:12 04:30 05:00 Temperature Pulse Rate 58 L 54 L 52 L Pulse Rate [ From Monitor] Respiratory 16 16 Rate Blood Pressure 108/61 114/67 106/64 O2 Sat by Pulse 100 100 100 Oximetry 09/12/20 09/12/20 09/12/20 05:30 06:01 06:31 Temperature Pulse Rate 53 L 75 57 L Pulse Rate [ From Monitor] Respiratory 16 17 16 Rate Blood Pressure 108/64 114/58 127/67 O2 Sat by Pulse 100 100 Oximetry 09/12/20 09/12/20 09/12/20 07:00 07:23 07:38 Temperature 97.9 F Pulse Rate 54 L 56 L Pulse Rate [ From Monitor] Respiratory 16 Rate Blood Pressure 112/59 125/76 O2 Sat by Pulse 100 99 Oximetry Constitutional: appears uncomfortable, other (young lady with mildly increased respiratory effort at rest on MVS) Eyes: non-icteric ENT: oropharynx moist, other (ETT 24 cm APOLINAR) Neck: supple, no lymphadenopathy, no JVD Effort: mildly labored Ascultation: Bilateral: rhonchi (scant) Percussion: Bilateral: not dull Cardiovascular: regular rate and rhythm Gastrointestinal: normoactive bowel sounds, soft, non-tender, non-distended (protuberant) Integumentary: normal Extremities: no cyanosis, no edema, pulses normal, no ischemia or petechiae Neurologic: non-focal exam (grossly), pupils equal and round, motor strength normal and, unable to assess Psychiatric: other (delirious / agitated during SAT's) CBC and BMP: 09/13/20 04:45 09/14/20 04:37 ABG, PT/INR, D-dimer: ABG ABG pH 7.415 (7.320-7.450) 09/12/20 02:25 POC ABG pCO2 35.3 mmHg (32.0-48.0) 09/12/20 02:25 ABG pCO2 39.1 mm Hg 09/09/20 17:05 POC ABG pO2 118.0 mmHg (83-108) H 09/12/20 02:25 ABG pO2 143.7 mm Hg (80.0-90.0) H 09/09/20 17:05 POC ABG HCO3 22.1 09/12/20 02:25 ABG O2 Saturation 98.1 (0-100) 09/12/20 02:25 PT/INR, D-dimer PT 19.2 Sec. (12.2-14.9) H 09/09/20 10:42 INR 1.57 (0.87-1.13) H 09/09/20 10:42 D-Dimer 5936.95 ng/mlDDU (0-234) H 09/09/20 14:31 Abnormal lab findings: Abnormal Labs 09/09/20 09/09/20 09/09/20 10:42 10:42 10:42 WBC RBC MCV 100 H MCHC Lymph % (Auto) Lymph # (Auto) Seg Neutrophils % Seg Neuts % (Manual) 33.0 L Lymphocytes % (Manual) 41.0 H Nucleated RBC % 1.0 H PT 19.2 H INR 1.57 H APTT 42.5 H D-Dimer ABG pH POC ABG pCO2 POC ABG pO2 ABG pO2 ABG HCO3 ABG Base Excess ABG Hemoglobin ABG Oxyhemoglobin ABG Potassium ABG Chloride ABG Glucose Oxyhemoglobin Carboxyhemoglobin Sodium Potassium 5.4 H Chloride Carbon Dioxide 17 L BUN 25 H Creatinine 2.5 H Glucose 205 H POC Glucose Lactic Acid Calcium Magnesium Ferritin AST 60 H ALT Lactate Dehydrogenase Total Creatine Kinase Troponin T 0.092 H C-Reactive Protein Total Protein 5.3 L Albumin 3.0 L HDL Cholesterol Arterial Blood Glucose Arterial Blood Ionized Calcium Urine WBC (Auto) Salicylates Acetaminophen 09/09/20 09/09/20 09/09/20 10:42 10:42 10:42 WBC RBC MCV MCHC Lymph % (Auto) Lymph # (Auto) Seg Neutrophils % Seg Neuts % (Manual) Lymphocytes % (Manual) Nucleated RBC % PT INR APTT D-Dimer ABG pH POC ABG pCO2 POC ABG pO2 ABG pO2 ABG HCO3 ABG Base Excess ABG Hemoglobin ABG Oxyhemoglobin ABG Potassium ABG Chloride ABG Glucose Oxyhemoglobin Carboxyhemoglobin Sodium Potassium Chloride Carbon Dioxide BUN Creatinine Glucose POC Glucose Lactic Acid 16.60 H* Calcium Magnesium 3.30 H Ferritin AST ALT Lactate Dehydrogenase Total Creatine Kinase 166 H Troponin T C-Reactive Protein Total Protein Albumin HDL Cholesterol Arterial Blood Glucose Arterial Blood Ionized Calcium Urine WBC (Auto) Salicylates Acetaminophen 09/09/20 09/09/20 09/09/20 10:42 10:42 11:30 WBC RBC MCV MCHC Lymph % (Auto) Lymph # (Auto) Seg Neutrophils % Seg Neuts % (Manual) Lymphocytes % (Manual) Nucleated RBC % PT INR APTT D-Dimer ABG pH 6.919 L* POC ABG pCO2 POC ABG pO2 ABG pO2 127.2 H ABG HCO3 10.3 L ABG Base Excess -21.7 L ABG Hemoglobin 10.8 L ABG Oxyhemoglobin ABG Potassium ABG Chloride ABG Glucose Oxyhemoglobin 94.2 L Carboxyhemoglobin Sodium Potassium Chloride Carbon Dioxide BUN Creatinine Glucose POC Glucose Lactic Acid Calcium Magnesium Ferritin AST ALT Lactate Dehydrogenase Total Creatine Kinase Troponin T C-Reactive Protein Total Protein Albumin HDL Cholesterol Arterial Blood Glucose Arterial Blood Ionized Calcium Urine WBC (Auto) Salicylates < 0.3 L Acetaminophen 5.0 L 09/09/20 09/09/20 09/09/20 14:31 14:31 14:31 WBC RBC MCV MCHC Lymph % (Auto) Lymph # (Auto) Seg Neutrophils % Seg Neuts % (Manual) Lymphocytes % (Manual) Nucleated RBC % PT INR APTT D-Dimer 5936.95 H ABG pH POC ABG pCO2 POC ABG pO2 ABG pO2 ABG HCO3 ABG Base Excess ABG Hemoglobin ABG Oxyhemoglobin ABG Potassium ABG Chloride ABG Glucose Oxyhemoglobin Carboxyhemoglobin Sodium Potassium Chloride Carbon Dioxide BUN Creatinine Glucose POC Glucose Lactic Acid Calcium Magnesium Ferritin AST ALT Lactate Dehydrogenase 513 H Total Creatine Kinase Troponin T 0.140 H* D C-Reactive Protein 3.80 H Total Protein Albumin HDL Cholesterol 31 L Arterial Blood Glucose Arterial Blood Ionized Calcium Urine WBC (Auto) Salicylates Acetaminophen 09/09/20 09/09/20 09/09/20 14:31 14:31 16:39 WBC RBC MCV MCHC Lymph % (Auto) Lymph # (Auto) Seg Neutrophils % Seg Neuts % (Manual) Lymphocytes % (Manual) Nucleated RBC % PT INR APTT D-Dimer ABG pH POC ABG pCO2 POC ABG pO2 ABG pO2 ABG HCO3 ABG Base Excess ABG Hemoglobin ABG Oxyhemoglobin ABG Potassium ABG Chloride ABG Glucose Oxyhemoglobin Carboxyhemoglobin Sodium Potassium Chloride Carbon Dioxide BUN Creatinine Glucose POC Glucose Lactic Acid 7.20 H* Calcium Magnesium Ferritin 1995.0 H AST ALT Lactate Dehydrogenase Total Creatine Kinase Troponin T 0.174 H* D C-Reactive Protein Total Protein Albumin HDL Cholesterol Arterial Blood Glucose Arterial Blood Ionized Calcium Urine WBC (Auto) Salicylates Acetaminophen 09/09/20 09/09/20 09/10/20 17:05 Unknown 04:19 WBC RBC MCV MCHC Lymph % (Auto) Lymph # (Auto) Seg Neutrophils % Seg Neuts % (Manual) Lymphocytes % (Manual) Nucleated RBC % PT INR APTT D-Dimer ABG pH 7.278 L 7.497 H POC ABG pCO2 25.0 L POC ABG pO2 ABG pO2 143.7 H ABG HCO3 17.9 L ABG Base Excess -8.3 L ABG Hemoglobin 11.6 L ABG Oxyhemoglobin ABG Potassium ABG Chloride 112.0 H ABG Glucose 113 H Oxyhemoglobin Carboxyhemoglobin 0.3 L Sodium Potassium Chloride Carbon Dioxide BUN Creatinine Glucose POC Glucose Lactic Acid Calcium Magnesium Ferritin AST ALT Lactate Dehydrogenase Total Creatine Kinase Troponin T C-Reactive Protein Total Protein Albumin HDL Cholesterol Arterial Blood Glucose 113 H Arterial Blood Ionized Calcium Urine WBC (Auto) 7.0 H Salicylates Acetaminophen 09/10/20 09/10/20 09/10/20 04:42 04:42 04:42 WBC RBC 3.64 L MCV MCHC 35 H Lymph % (Auto) 11.0 L Lymph # (Auto) 0.9 L Seg Neutrophils % 82.7 H Seg Neuts % (Manual) Lymphocytes % (Manual) Nucleated RBC % PT INR APTT D-Dimer ABG pH POC ABG pCO2 POC ABG pO2 ABG pO2 ABG HCO3 ABG Base Excess ABG Hemoglobin ABG Oxyhemoglobin ABG Potassium ABG Chloride ABG Glucose Oxyhemoglobin Carboxyhemoglobin Sodium Potassium 3.5 L D Chloride 108.4 H Carbon Dioxide BUN 33 H Creatinine 1.5 H Glucose 107 H POC Glucose Lactic Acid 2.20 H* Calcium 7.2 L D Magnesium Ferritin AST 220 H ALT 117 H Lactate Dehydrogenase Total Creatine Kinase Troponin T C-Reactive Protein Total Protein 5.5 L Albumin 3.0 L HDL Cholesterol Arterial Blood Glucose Arterial Blood Ionized Calcium Urine WBC (Auto) Salicylates Acetaminophen 09/10/20 09/11/20 09/11/20 10:34 00:46 03:08 WBC RBC MCV MCHC Lymph % (Auto) Lymph # (Auto) Seg Neutrophils % Seg Neuts % (Manual) Lymphocytes % (Manual) Nucleated RBC % PT INR APTT D-Dimer ABG pH 7.521 H POC ABG pCO2 25.2 L POC ABG pO2 137.4 H ABG pO2 ABG HCO3 ABG Base Excess ABG Hemoglobin 10.2 L ABG Oxyhemoglobin 98.1 H ABG Potassium 3.1 L ABG Chloride 116.0 H ABG Glucose 123 H Oxyhemoglobin Carboxyhemoglobin Sodium Potassium Chloride Carbon Dioxide BUN Creatinine Glucose POC Glucose 124 H Lactic Acid 2.40 H* Calcium Magnesium Ferritin AST ALT Lactate Dehydrogenase Total Creatine Kinase Troponin T C-Reactive Protein Total Protein Albumin HDL Cholesterol Arterial Blood Glucose 123 H Arterial Blood Ionized Calcium 4.3 L Urine WBC (Auto) Salicylates Acetaminophen 09/11/20 09/11/20 09/11/20 10:04 10:04 12:00 WBC 16.7 H RBC 3.33 L MCV MCHC Lymph % (Auto) Lymph # (Auto) Seg Neutrophils % Seg Neuts % (Manual) Lymphocytes % (Manual) Nucleated RBC % PT INR APTT D-Dimer ABG pH POC ABG pCO2 POC ABG pO2 ABG pO2 ABG HCO3 ABG Base Excess ABG Hemoglobin ABG Oxyhemoglobin ABG Potassium ABG Chloride ABG Glucose Oxyhemoglobin Carboxyhemoglobin Sodium 147 H Potassium 3.3 L Chloride 115.6 H Carbon Dioxide BUN 24 H Creatinine Glucose 110 H POC Glucose 122 H Lactic Acid Calcium 8.1 L Magnesium Ferritin AST ALT Lactate Dehydrogenase Total Creatine Kinase Troponin T C-Reactive Protein Total Protein Albumin HDL Cholesterol Arterial Blood Glucose Arterial Blood Ionized Calcium Urine WBC (Auto) Salicylates Acetaminophen 09/11/20 09/11/20 09/11/20 17:20 17:48 23:23 WBC RBC MCV MCHC Lymph % (Auto) Lymph # (Auto) Seg Neutrophils % Seg Neuts % (Manual) Lymphocytes % (Manual) Nucleated RBC % PT INR APTT D-Dimer ABG pH 7.295 L POC ABG pCO2 POC ABG pO2 ABG pO2 ABG HCO3 ABG Base Excess ABG Hemoglobin 11.6 L ABG Oxyhemoglobin ABG Potassium ABG Chloride 113.0 H ABG Glucose 104 H Oxyhemoglobin Carboxyhemoglobin 0.1 L Sodium Potassium Chloride Carbon Dioxide BUN Creatinine Glucose POC Glucose 117 H 111 H Lactic Acid Calcium Magnesium Ferritin AST ALT Lactate Dehydrogenase Total Creatine Kinase Troponin T C-Reactive Protein Total Protein Albumin HDL Cholesterol Arterial Blood Glucose 104 H Arterial Blood Ionized Calcium Urine WBC (Auto) Salicylates Acetaminophen 09/11/20 09/12/20 09/12/20 Unknown 01:44 02:25 WBC RBC MCV MCHC Lymph % (Auto) Lymph # (Auto) Seg Neutrophils % Seg Neuts % (Manual) Lymphocytes % (Manual) Nucleated RBC % PT INR APTT D-Dimer ABG pH POC ABG pCO2 POC ABG pO2 42.9 L 118.0 H ABG pO2 ABG HCO3 ABG Base Excess ABG Hemoglobin 9.9 L 9.9 L ABG Oxyhemoglobin 78.9 L ABG Potassium ABG Chloride 117.0 H 116.0 H ABG Glucose 112 H 114 H Oxyhemoglobin Carboxyhemoglobin 0.3 L 0.3 L Sodium Potassium Chloride Carbon Dioxide BUN Creatinine Glucose POC Glucose Lactic Acid Calcium Magnesium 2.50 H Ferritin AST ALT Lactate Dehydrogenase Total Creatine Kinase Troponin T C-Reactive Protein Total Protein Albumin HDL Cholesterol Arterial Blood Glucose 112 H 114 H Arterial Blood Ionized Calcium Urine WBC (Auto) Salicylates Acetaminophen 09/12/20 09/12/20 04:56 05:15 WBC RBC MCV MCHC Lymph % (Auto) Lymph # (Auto) Seg Neutrophils % Seg Neuts % (Manual) Lymphocytes % (Manual) Nucleated RBC % PT INR APTT D-Dimer ABG pH POC ABG pCO2 POC ABG pO2 ABG pO2 ABG HCO3 ABG Base Excess ABG Hemoglobin ABG Oxyhemoglobin ABG Potassium ABG Chloride ABG Glucose Oxyhemoglobin Carboxyhemoglobin Sodium 150 H Potassium Chloride 118.1 H Carbon Dioxide BUN 22 H Creatinine Glucose 113 H POC Glucose 107 H Lactic Acid Calcium Magnesium Ferritin AST ALT Lactate Dehydrogenase Total Creatine Kinase Troponin T C-Reactive Protein Total Protein Albumin HDL Cholesterol Arterial Blood Glucose Arterial Blood Ionized Calcium Urine WBC (Auto) Salicylates Acetaminophen Chest x-ray: image reviewed Allied health notes reviewed: nursing
--- NOTE | 2020-09-12 14:41 | Progress Note ---
Assessment and Plan Assessment and Plan # Cardiac arrest -s/p cardiac resucitation -intubated and sedated -CT brain is unremarkable -UDS positive for Cocain -Patient treated" with ACLS protocol with eventual return of perfusing cardiac rhythm. -EEG is remarkable forslight slowing -MRI brain is pending # Anoxic brain injury -CT head is unremarkable - neuro check move all as per nurse -pt. is intubated and sedated on Propofol and Fentanyl -Suggest EEG off sedation if possible -Brain MRI is pending # Sepsis -Sepsis protocol: CBC, CMP, chest x-ray, IV antibiotic therapy, IV fluid resuscitation therapy, monitor urine output every shift, IV pressor support, serial lactic acid level, maintain mean arterial pressure greater than equal 65, blood culture. -Postive Blood C/S staph. -Echo is unremarkable -Might need to consider FRANCISCO ? will review MRI brain # Acute hypoxemic respiratory failure -Patient intubated and ambulatory support, -wean vent as tolerated, -critical care team consulted in ED, - spontaneous breathing trial daily, -daily ABG, chest x-ray, # Metabolic acidosis -IV fluid resuscitation therapy, IV bicarbonate therapy, supportive care, BMP, repeat BMP in a.m. # Toxic metabolic encephalopathy -CT head, neuro check, treat sepsis, supportive care, IV fluid resuscitation therapy, serial lactic acid level. # Aspiration pneumonia Pneumonia protocol: Chest x-ray, CBC, CMP, IV antibiotic therapy, wean vent as tolerated. # DVT prophylaxis -SCD to bilateral lower extremities while in bed, prophylactic anticoagulation # Advance care planning -Disease education conducted, care plan discussed, diagnosis discussed, pr ognosis discussed, [x] Data Review and interpretation [x] Patient assessment and monitoring of vital signs [x] Documentation [x] Medication orders and management time spent 85 minutes ICU evaluation , review record . and labs and D/A nursing staff. Subjective Date of service: 09/12/20 Principal diagnosis: Acute hypoxemic resp failure; Cardiac arrest with ROSC; Pneumonia; ANGELICA Interval history: still intubated and sedated MRI brain is done result is pending EEG is unremarkable Blood c/s is positive for staph. echo is unremarkable Objective - Vital Sign Vital Signs - 12hr 09/12/20 09/12/20 09/12/20 03:00 03:17 03:30 Temperature 98.9 F Pulse Rate 55 L 52 L Pulse Rate [ From Monitor] Respiratory 16 16 Rate Blood Pressure 102/59 110/62 O2 Sat by Pulse 100 100 Oximetry 09/12/20 09/12/20 09/12/20 04:00 04:12 04:30 Temperature Pulse Rate 53 L 58 L 54 L Pulse Rate [ 53 L From Monitor] Respiratory 16 16 Rate Blood Pressure 108/61 108/61 114/67 O2 Sat by Pulse 100 100 100 Oximetry 09/12/20 09/12/20 09/12/20 05:00 05:30 06:01 Temperature Pulse Rate 52 L 53 L 75 Pulse Rate [ From Monitor] Respiratory 16 16 17 Rate Blood Pressure 106/64 108/64 114/58 O2 Sat by Pulse 100 100 Oximetry 09/12/20 09/12/20 09/12/20 06:31 07:00 07:23 Temperature Pulse Rate 57 L 54 L 56 L Pulse Rate [ From Monitor] Respiratory 16 16 Rate Blood Pressure 127/67 112/59 125/76 O2 Sat by Pulse 100 100 99 Oximetry 09/12/20 09/12/20 09/12/20 07:30 07:38 08:00 Temperature 97.9 F Pulse Rate 59 L 55 L Pulse Rate [ 57 L From Monitor] Respiratory 16 16 Rate Blood Pressure 115/69 112/59 O2 Sat by Pulse 99 98 Oximetry 09/12/20 09/12/20 09/12/20 08:30 09:00 09:30 Temperature Pulse Rate 55 L 53 L 51 L Pulse Rate [ From Monitor] Respiratory 16 16 16 Rate Blood Pressure 106/62 113/67 105/54 O2 Sat by Pulse 100 100 100 Oximetry 09/12/20 09/12/20 09/12/20 10:00 10:30 13:32 Temperature Pulse Rate 50 L 52 L 55 L Pulse Rate [ From Monitor] Respiratory 16 16 16 Rate Blood Pressure 109/62 109/63 O2 Sat by Pulse 100 100 95 Oximetry 09/12/20 14:01 Temperature Pulse Rate 60 Pulse Rate [ From Monitor] Respiratory 16 Rate Blood Pressure O2 Sat by Pulse 93 Oximetry - General Apperance Constitutional: comfortable - EENT EENT: PERRL, mucous membranes moist - Respiratory Respiratory: chest non-tender, lungs clear, rhonchi - Cardiovascular Cardiovascular: regular rate, normal S1, normal S2 Extremities: no peripheral edema bilat, no clubbing, cyanosis - Gastrointestinal Gastrointestinal: normoactive bowel sounds - Integumentary Integumentary: normal - Neurologic Cranial nerve examination: PERRL, EOMI, other (no clear facial asymmetry ) Speech examination: other (intubated and sedated) Detailed motor examination: other (slightly move upper and to lesser extent lower, squeeze hand to stimuli) - Laboratory Findings CBC and BMP: 09/11/20 10:04 09/12/20 04:56 Abnormal Lab Findings: Abnormal Labs 09/09/20 09/09/20 09/09/20 10:42 10:42 10:42 WBC RBC MCV 100 H MCHC Lymph % (Auto) Lymph # (Auto) Seg Neutrophils % Seg Neuts % (Manual) 33.0 L Lymphocytes % (Manual) 41.0 H Nucleated RBC % 1.0 H PT 19.2 H INR 1.57 H APTT 42.5 H D-Dimer ABG pH POC ABG pCO2 POC ABG pO2 ABG pO2 ABG HCO3 ABG Base Excess ABG Hemoglobin ABG Oxyhemoglobin ABG Potassium ABG Chloride ABG Glucose Oxyhemoglobin Carboxyhemoglobin Sodium Potassium 5.4 H Chloride Carbon Dioxide 17 L BUN 25 H Creatinine 2.5 H Glucose 205 H POC Glucose Lactic Acid Calcium Magnesium Ferritin AST 60 H ALT Lactate Dehydrogenase Total Creatine Kinase Troponin T 0.092 H C-Reactive Protein Total Protein 5.3 L Albumin 3.0 L HDL Cholesterol Arterial Blood Glucose Arterial Blood Ionized Calcium Urine WBC (Auto) Salicylates Acetaminophen 09/09/20 09/09/20 09/09/20 10:42 10:42 10:42 WBC RBC MCV MCHC Lymph % (Auto) Lymph # (Auto) Seg Neutrophils % Seg Neuts % (Manual) Lymphocytes % (Manual) Nucleated RBC % PT INR APTT D-Dimer ABG pH POC ABG pCO2 POC ABG pO2 ABG pO2 ABG HCO3 ABG Base Excess ABG Hemoglobin ABG Oxyhemoglobin ABG Potassium ABG Chloride ABG Glucose Oxyhemoglobin Carboxyhemoglobin Sodium Potassium Chloride Carbon Dioxide BUN Creatinine Glucose POC Glucose Lactic Acid 16.60 H* Calcium Magnesium 3.30 H Ferritin AST ALT Lactate Dehydrogenase Total Creatine Kinase 166 H Troponin T C-Reactive Protein Total Protein Albumin HDL Cholesterol Arterial Blood Glucose Arterial Blood Ionized Calcium Urine WBC (Auto) Salicylates Acetaminophen 09/09/20 09/09/20 09/09/20 10:42 10:42 11:30 WBC RBC MCV MCHC Lymph % (Auto) Lymph # (Auto) Seg Neutrophils % Seg Neuts % (Manual) Lymphocytes % (Manual) Nucleated RBC % PT INR APTT D-Dimer ABG pH 6.919 L* POC ABG pCO2 POC ABG pO2 ABG pO2 127.2 H ABG HCO3 10.3 L ABG Base Excess -21.7 L ABG Hemoglobin 10.8 L ABG Oxyhemoglobin ABG Potassium ABG Chloride ABG Glucose Oxyhemoglobin 94.2 L Carboxyhemoglobin Sodium Potassium Chloride Carbon Dioxide BUN Creatinine Glucose POC Glucose Lactic Acid Calcium Magnesium Ferritin AST ALT Lactate Dehydrogenase Total Creatine Kinase Troponin T C-Reactive Protein Total Protein Albumin HDL Cholesterol Arterial Blood Glucose Arterial Blood Ionized Calcium Urine WBC (Auto) Salicylates < 0.3 L Acetaminophen 5.0 L 09/09/20 09/09/20 09/09/20 14:31 14:31 14:31 WBC RBC MCV MCHC Lymph % (Auto) Lymph # (Auto) Seg Neutrophils % Seg Neuts % (Manual) Lymphocytes % (Manual) Nucleated RBC % PT INR APTT D-Dimer 5936.95 H ABG pH POC ABG pCO2 POC ABG pO2 ABG pO2 ABG HCO3 ABG Base Excess ABG Hemoglobin ABG Oxyhemoglobin ABG Potassium ABG Chloride ABG Glucose Oxyhemoglobin Carboxyhemoglobin Sodium Potassium Chloride Carbon Dioxide BUN Creatinine Glucose POC Glucose Lactic Acid Calcium Magnesium Ferritin AST ALT Lactate Dehydrogenase 513 H Total Creatine Kinase Troponin T 0.140 H* D C-Reactive Protein 3.80 H Total Protein Albumin HDL Cholesterol 31 L Arterial Blood Glucose Arterial Blood Ionized Calcium Urine WBC (Auto) Salicylates Acetaminophen 09/09/20 09/09/20 09/09/20 14:31 14:31 16:39 WBC RBC MCV MCHC Lymph % (Auto) Lymph # (Auto) Seg Neutrophils % Seg Neuts % (Manual) Lymphocytes % (Manual) Nucleated RBC % PT INR APTT D-Dimer ABG pH POC ABG pCO2 POC ABG pO2 ABG pO2 ABG HCO3 ABG Base Excess ABG Hemoglobin ABG Oxyhemoglobin ABG Potassium ABG Chloride ABG Glucose Oxyhemoglobin Carboxyhemoglobin Sodium Potassium Chloride Carbon Dioxide BUN Creatinine Glucose POC Glucose Lactic Acid 7.20 H* Calcium Magnesium Ferritin 1995.0 H AST ALT Lactate Dehydrogenase Total Creatine Kinase Troponin T 0.174 H* D C-Reactive Protein Total Protein Albumin HDL Cholesterol Arterial Blood Glucose Arterial Blood Ionized Calcium Urine WBC (Auto) Salicylates Acetaminophen 09/09/20 09/09/20 09/10/20 17:05 Unknown 04:19 WBC RBC MCV MCHC Lymph % (Auto) Lymph # (Auto) Seg Neutrophils % Seg Neuts % (Manual) Lymphocytes % (Manual) Nucleated RBC % PT INR APTT D-Dimer ABG pH 7.278 L 7.497 H POC ABG pCO2 25.0 L POC ABG pO2 ABG pO2 143.7 H ABG HCO3 17.9 L ABG Base Excess -8.3 L ABG Hemoglobin 11.6 L ABG Oxyhemoglobin ABG Potassium ABG Chloride 112.0 H ABG Glucose 113 H Oxyhemoglobin Carboxyhemoglobin 0.3 L Sodium Potassium Chloride Carbon Dioxide BUN Creatinine Glucose POC Glucose Lactic Acid Calcium Magnesium Ferritin AST ALT Lactate Dehydrogenase Total Creatine Kinase Troponin T C-Reactive Protein Total Protein Albumin HDL Cholesterol Arterial Blood Glucose 113 H Arterial Blood Ionized Calcium Urine WBC (Auto) 7.0 H Salicylates Acetaminophen 09/10/20 09/10/20 09/10/20 04:42 04:42 04:42 WBC RBC 3.64 L MCV MCHC 35 H Lymph % (Auto) 11.0 L Lymph # (Auto) 0.9 L Seg Neutrophils % 82.7 H Seg Neuts % (Manual) Lymphocytes % (Manual) Nucleated RBC % PT INR APTT D-Dimer ABG pH POC ABG pCO2 POC ABG pO2 ABG pO2 ABG HCO3 ABG Base Excess ABG Hemoglobin ABG Oxyhemoglobin ABG Potassium ABG Chloride ABG Glucose Oxyhemoglobin Carboxyhemoglobin Sodium Potassium 3.5 L D Chloride 108.4 H Carbon Dioxide BUN 33 H Creatinine 1.5 H Glucose 107 H POC Glucose Lactic Acid 2.20 H* Calcium 7.2 L D Magnesium Ferritin AST 220 H ALT 117 H Lactate Dehydrogenase Total Creatine Kinase Troponin T C-Reactive Protein Total Protein 5.5 L Albumin 3.0 L HDL Cholesterol Arterial Blood Glucose Arterial Blood Ionized Calcium Urine WBC (Auto) Salicylates Acetaminophen 09/10/20 09/11/20 09/11/20 10:34 00:46 03:08 WBC RBC MCV MCHC Lymph % (Auto) Lymph # (Auto) Seg Neutrophils % Seg Neuts % (Manual) Lymphocytes % (Manual) Nucleated RBC % PT INR APTT D-Dimer ABG pH 7.521 H POC ABG pCO2 25.2 L POC ABG pO2 137.4 H ABG pO2 ABG HCO3 ABG Base Excess ABG Hemoglobin 10.2 L ABG Oxyhemoglobin 98.1 H ABG Potassium 3.1 L ABG Chloride 116.0 H ABG Glucose 123 H Oxyhemoglobin Carboxyhemoglobin Sodium Potassium Chloride Carbon Dioxide BUN Creatinine Glucose POC Glucose 124 H Lactic Acid 2.40 H* Calcium Magnesium Ferritin AST ALT Lactate Dehydrogenase Total Creatine Kinase Troponin T C-Reactive Protein Total Protein Albumin HDL Cholesterol Arterial Blood Glucose 123 H Arterial Blood Ionized Calcium 4.3 L Urine WBC (Auto) Salicylates Acetaminophen 09/11/20 09/11/20 09/11/20 10:04 10:04 12:00 WBC 16.7 H RBC 3.33 L MCV MCHC Lymph % (Auto) Lymph # (Auto) Seg Neutrophils % Seg Neuts % (Manual) Lymphocytes % (Manual) Nucleated RBC % PT INR APTT D-Dimer ABG pH POC ABG pCO2 POC ABG pO2 ABG pO2 ABG HCO3 ABG Base Excess ABG Hemoglobin ABG Oxyhemoglobin ABG Potassium ABG Chloride ABG Glucose Oxyhemoglobin Carboxyhemoglobin Sodium 147 H Potassium 3.3 L Chloride 115.6 H Carbon Dioxide BUN 24 H Creatinine Glucose 110 H POC Glucose 122 H Lactic Acid Calcium 8.1 L Magnesium Ferritin AST ALT Lactate Dehydrogenase Total Creatine Kinase Troponin T C-Reactive Protein Total Protein Albumin HDL Cholesterol Arterial Blood Glucose Arterial Blood Ionized Calcium Urine WBC (Auto) Salicylates Acetaminophen 09/11/20 09/11/20 09/11/20 17:20 17:48 23:23 WBC RBC MCV MCHC Lymph % (Auto) Lymph # (Auto) Seg Neutrophils % Seg Neuts % (Manual) Lymphocytes % (Manual) Nucleated RBC % PT INR APTT D-Dimer ABG pH 7.295 L POC ABG pCO2 POC ABG pO2 ABG pO2 ABG HCO3 ABG Base Excess ABG Hemoglobin 11.6 L ABG Oxyhemoglobin ABG Potassium ABG Chloride 113.0 H ABG Glucose 104 H Oxyhemoglobin Carboxyhemoglobin 0.1 L Sodium Potassium Chloride Carbon Dioxide BUN Creatinine Glucose POC Glucose 117 H 111 H Lactic Acid Calcium Magnesium Ferritin AST ALT Lactate Dehydrogenase Total Creatine Kinase Troponin T C-Reactive Protein Total Protein Albumin HDL Cholesterol Arterial Blood Glucose 104 H Arterial Blood Ionized Calcium Urine WBC (Auto) Salicylates Acetaminophen 09/11/20 09/12/20 09/12/20 Unknown 01:44 02:25 WBC RBC MCV MCHC Lymph % (Auto) Lymph # (Auto) Seg Neutrophils % Seg Neuts % (Manual) Lymphocytes % (Manual) Nucleated RBC % PT INR APTT D-Dimer ABG pH POC ABG pCO2 POC ABG pO2 42.9 L 118.0 H ABG pO2 ABG HCO3 ABG Base Excess ABG Hemoglobin 9.9 L 9.9 L ABG Oxyhemoglobin 78.9 L ABG Potassium ABG Chloride 117.0 H 116.0 H ABG Glucose 112 H 114 H Oxyhemoglobin Carboxyhemoglobin 0.3 L 0.3 L Sodium Potassium Chloride Carbon Dioxide BUN Creatinine Glucose POC Glucose Lactic Acid Calcium Magnesium 2.50 H Ferritin AST ALT Lactate Dehydrogenase Total Creatine Kinase Troponin T C-Reactive Protein Total Protein Albumin HDL Cholesterol Arterial Blood Glucose 112 H 114 H Arterial Blood Ionized Calcium Urine WBC (Auto) Salicylates Acetaminophen 09/12/20 09/12/20 04:56 05:15 WBC RBC MCV MCHC Lymph % (Auto) Lymph # (Auto) Seg Neutrophils % Seg Neuts % (Manual) Lymphocytes % (Manual) Nucleated RBC % PT INR APTT D-Dimer ABG pH POC ABG pCO2 POC ABG pO2 ABG pO2 ABG HCO3 ABG Base Excess ABG Hemoglobin ABG Oxyhemoglobin ABG Potassium ABG Chloride ABG Glucose Oxyhemoglobin Carboxyhemoglobin Sodium 150 H Potassium Chloride 118.1 H Carbon Dioxide BUN 22 H Creatinine Glucose 113 H POC Glucose 107 H Lactic Acid Calcium Magnesium Ferritin AST ALT Lactate Dehydrogenase Total Creatine Kinase Troponin T C-Reactive Protein Total Protein Albumin HDL Cholesterol Arterial Blood Glucose Arterial Blood Ionized Calcium Urine WBC (Auto) Salicylates Acetaminophen
--- NOTE | 2020-09-12 14:41 | Progress Note ---
Assessment and Plan 25 YO Female with Asthma, morbid Obesity was bought to ER unresponsive. As per fianc the patient was in her usual state of health overnight while drinking alcohol with concomitant ingestion of ecstasy. Patient was found to be unresponsive in cardiac arrest, EMS was notified, Patient was intubated in the field. Patient initiated on ACLS protocol and subsequently transported to [facility] for further care and evaluation. CXR showed infiltrates, elevated troponin, UDS positive for cocaine/marijuana. Patient admitted to ICU and initiated on sepsis protocol. A/P --Sepsis with shock likely from aspiration PNA cont abx, follow Cx monitor lactic acid - trending down -- Acute hypoxemic respiratory failure Patient intubated and ambulatory support, wean vent as tolerated, critical care team consulted, spontaneous breathing trial daily, daily ABG, chest x-ray, -- Metabolic acidosis, resolved likely due to effect from cardiac arrest IV fluid resuscitation therapy, supportive care, repeat BMP in a.m. -- Toxic metabolic encephalopathy UDS +ve for cocaine/marijuana CT head/MRI brain without any acute findings --S/P Cardiac arrest Patient treated" with ACLS protocol with eventual return of perfusion cardiac rhythm. -- Anoxic brain injury, suspected CT head and MRI brain w/o any acute process follow clinically, neurology consult -- Aspiration pneumonia Pneumonia protocol: Chest x-ray, CBC, CMP, IV antibiotic therapy, wean vent as tolerated. rule out for COVID --Elevated troponin order 2d echo, elevated likely from cardiac arrest cardiac consult -- DVT prophylaxis SCD to bilateral lower extremities while in bed, prophylactic anticoagulation --Advance care planning Full code status The high probability of a clinically significant, sudden or life threatening deterioration of the [multi] system(s) required my full and direct attention, intervention and personal management. The aggregate critical care time was [35] minutes. This time is in addition to time spent performing reported procedures but includes the following: [x] Data Review and interpretation [x] Patient assessment and monitoring of vital signs [x] Documentation [x] Medication orders and management Daily clinical course: 09/10/20: follow pending COVID test, CC consulted, will follow clinically and wean off from vent and pressor as tolerated. neuro consult. cont iv fluid hydration 09/11/20: negative for covid, cont abx for aspiration PNA. Patient remains intubated, neurology consulted and recommended MRI of the brain. Continue supportive care. Follow BMP for hyponatremia, continue IV fluid hydration with free water with tube feeding. 09/12/20: Cough present, MRI brain without any acute process. Neurology recommending EEG when off sedation. Continue empiric antibiotic for aspiration pneumonia, follow clinically wean off from sedation and ventilator support as tolerated. Continue tube feeding, free water and hypotonic fluid for hypernatremia. Subjective Date of service: 09/12/20 Principal diagnosis: Acute hypoxemic resp failure; Cardiac arrest with ROSC; Pneumonia; ANGELICA Interval history: patient seen and examined patient remains intubated noted vitals and discussed with RN at the bedside patient restarted on levophed Objective - Exam Narrative Exam: GENERAL: well-developed and obese -[place] female lying on bed intubated and sedated no discomfort. HEENT: Normocephalic. Atraumatic. No conjunctival congestion or icterus. Patient has moist mucous membranes. NECK: Supple. Trachea midline. CHEST/LUNGS: on mechanical ventilation, positive few crackles HEART/CARDIOVASCULAR: Regular in rate and rhythm. S1 and S2 positive. ABDOMEN: Abdomen is soft, nontender. Patient has normal bowel sounds. SKIN: There is no rash. Warm and dry. NEURO: Sedated, moves extremities MUSCULOSKELETAL: No joint effusion or tenderness. EXTRIMITY: No edema, no cyanosis or clubbing. PSYCH: sedated - Constitutional Vitals: Vital Signs - 12hr 09/12/20 09/12/20 09/12/20 03:00 03:17 03:30 Temperature 98.9 F Pulse Rate 55 L 52 L Pulse Rate [ From Monitor] Respiratory 16 16 Rate Blood Pressure 102/59 110/62 O2 Sat by Pulse 100 100 Oximetry 09/12/20 09/12/20 09/12/20 04:00 04:12 04:30 Temperature Pulse Rate 53 L 58 L 54 L Pulse Rate [ 53 L From Monitor] Respiratory 16 16 Rate Blood Pressure 108/61 108/61 114/67 O2 Sat by Pulse 100 100 100 Oximetry 09/12/20 09/12/20 09/12/20 05:00 05:30 06:01 Temperature Pulse Rate 52 L 53 L 75 Pulse Rate [ From Monitor] Respiratory 16 16 17 Rate Blood Pressure 106/64 108/64 114/58 O2 Sat by Pulse 100 100 Oximetry 09/12/20 09/12/20 09/12/20 06:31 07:00 07:23 Temperature Pulse Rate 57 L 54 L 56 L Pulse Rate [ From Monitor] Respiratory 16 16 Rate Blood Pressure 127/67 112/59 125/76 O2 Sat by Pulse 100 100 99 Oximetry 09/12/20 09/12/20 09/12/20 07:30 07:38 08:00 Temperature 97.9 F Pulse Rate 59 L 55 L Pulse Rate [ 57 L From Monitor] Respiratory 16 16 Rate Blood Pressure 115/69 112/59 O2 Sat by Pulse 99 98 Oximetry 09/12/20 09/12/20 09/12/20 08:30 09:00 09:30 Temperature Pulse Rate 55 L 53 L 51 L Pulse Rate [ From Monitor] Respiratory 16 16 16 Rate Blood Pressure 106/62 113/67 105/54 O2 Sat by Pulse 100 100 100 Oximetry 09/12/20 09/12/20 09/12/20 10:00 10:30 13:32 Temperature Pulse Rate 50 L 52 L 55 L Pulse Rate [ From Monitor] Respiratory 16 16 16 Rate Blood Pressure 109/62 109/63 O2 Sat by Pulse 100 100 95 Oximetry 09/12/20 14:01 Temperature Pulse Rate 60 Pulse Rate [ From Monitor] Respiratory 16 Rate Blood Pressure O2 Sat by Pulse 93 Oximetry - Labs CBC & Chem 7: 09/13/20 04:45 09/13/20 04:45 Labs: Abnormal lab results 09/11/20 09/11/20 09/11/20 Range/Units 17:20 17:48 23:23 ABG pH 7.295 L (7.320-7.450) POC ABG pO2 (83-108) mmHg ABG Hemoglobin 11.6 L (12.0-17.5) ABG Oxyhemoglobin (94-98) ABG Chloride 113.0 H (98-107) mmol/L ABG Glucose 104 H (65-95) mg/dL Carboxyhemoglobin 0.1 L (0.5-1.5) Sodium (137-145) mmol/L Chloride (98-107) mmol/L BUN (7-17) mg/dL Glucose (65-100) mg/dL POC Glucose 117 H 111 H (70-105) mg/dL Magnesium (1.7-2.3) mg/dL Arterial Blood Glucose 104 H (65-95) mg/dL 09/11/20 09/12/20 09/12/20 Range/Units Unknown 01:44 02:25 ABG pH (7.320-7.450) POC ABG pO2 42.9 L 118.0 H (83-108) mmHg ABG Hemoglobin 9.9 L 9.9 L (12.0-17.5) ABG Oxyhemoglobin 78.9 L (94-98) ABG Chloride 117.0 H 116.0 H (98-107) mmol/L ABG Glucose 112 H 114 H (65-95) mg/dL Carboxyhemoglobin 0.3 L 0.3 L (0.5-1.5) Sodium (137-145) mmol/L Chloride (98-107) mmol/L BUN (7-17) mg/dL Glucose (65-100) mg/dL POC Glucose (70-105) mg/dL Magnesium 2.50 H (1.7-2.3) mg/dL Arterial Blood Glucose 112 H 114 H (65-95) mg/dL 09/12/20 09/12/20 Range/Units 04:56 05:15 ABG pH (7.320-7.450) POC ABG pO2 (83-108) mmHg ABG Hemoglobin (12.0-17.5) ABG Oxyhemoglobin (94-98) ABG Chloride (98-107) mmol/L ABG Glucose (65-95) mg/dL Carboxyhemoglobin (0.5-1.5) Sodium 150 H (137-145) mmol/L Chloride 118.1 H (98-107) mmol/L BUN 22 H (7-17) mg/dL Glucose 113 H (65-100) mg/dL POC Glucose 107 H (70-105) mg/dL Magnesium (1.7-2.3) mg/dL Arterial Blood Glucose (65-95) mg/dL HEART Score - HEART Score Troponin: Troponin T 0.174 ng/mL (0.00-0.029) H* D 09/09/20 16:39
--- NOTE | 2020-09-12 16:13 | Magnetic Resonance Report ---
MR brain wo con INDICATION / CLINICAL INFORMATION: 25 years Female; post cardiac arrest. TECHNIQUE: Multiplanar, multisequence MR images of the brain were obtained. COMPARISON: CT-09/09/2020 FINDINGS: BRAIN / INTRACRANIAL CONTENTS: Mild increased diffusion signal seen in the cortex of the posterior pa rietal occipital regions. No ADC map abnormality seen. Perhaps postcontrast imaging would be helpful to ensure that there is no evidence of leptomeningeal enhancement. Otherwise, no acute hemorrhage, mass effect, midline shift, hydrocephalus, or acute, large territori al infarct. No chronic infarct or atrophy. No significant white matter abnormality. CRANIOCERVICAL JUNCTION: Tonsillar ectopia seen without mass effect on the cervicomedullary junction. VASCULAR FLOW-VOIDS: No significant abnormality. ORBITS: No significant abnormality of visualized orbits. SINUSES / MASTOIDS: Patient is intubated. Air-fluid levels are seen in the sphenoid sinuses. There is partial opacification of the ethmoids and maxillary antra, as well as the frontal sinuses. Mucosal t hickening seen in the mastoids. Mucous retention cyst/polyp is seen in the posterior maxillary antrum on the right. ADDITIONAL FINDINGS: None. IMPRESSION: 1. No focal mass, hemorrhage, hydrocephalus, or acute ischemia. 2. Subtle cortical/subcortical abnormality peripherally in the parietal-occipital regions bilaterally . Postcontrast imaging may be of benefit, to ensure there is no evidence of leptomeningeal disease. P ost ictal change, PRES, etc. might be considered. Signer Name: Colby Chan MD, III Signed: 09/12/2020 4:08 PM Workstation Name: [id number]
--- NOTE | 2020-09-13 02:16 | XRay Report ---
CHEST - 1 VIEW INDICATION: follow up respiratory failure COMPARISON: Yesterday FINDINGS: SUPPORT DEVICES: Endotracheal tube tip below the level of clavicles and near the right mainstem bron chus should be retracted 3 cm. NG tube is curled in the proximal stomach. HEART: Stable cardiomediastinal silhouette. LUNGS/PLEURA: Suboptimal inspiratory effort with persistent mild patchy airspace disease especially in the right upper lobe. ADDITIONAL FINDINGS: None. IMPRESSION: 1. Recommend retracting the endotracheal tube as above. 2. Largely unchanged exam otherwise. Signer Name: Ashish Tony MD Signed: 09/13/2020 2:12 AM Workstation Name: [id number]
--- NOTE | 2020-09-13 05:16 | Progress Note ---
Assessment and Plan Acute hypoxemic respiratory failure on MVS Cardiac arrest with return of spontaneous circulation Bilateral pneumonia Person under investigation for COVID-19 infection Obesity Drug abuse and overdose Severe metabolic acidosis Hypercapnia Hyperkalemia Acute kidney injury, possibly on chronic Lactic acidosis Elevated serum ferritin Elevated serum troponin Oropharyngeal dysphagia - continue Daily SAT and SBT assessment as tolerated , if she tolerates SBT ,plan to liberate from MVS. The agitation she has on SBT, maybe secondary to the ETT. If we are unale to extubate her today, Precedex is an option to help treat agitation without precluding liberation trials - continue to wean supplemental oxygen for target SpO2 89-90% - VAP bundle addressed, aspiration precautions HOB >30 - continue lung protective strategies - continue bronchodilators with pulmonary hygiene per RT - wean per pulmonary driven protocols otherwise - continue accuchecks with glycemic control per SSI (While critically ill target blood glucose of 140-180 mg/dL; avoid hypoglycemia) - sedation prn for target RASS 0 to -1 - avoid nephrotoxins, renally dose all medications - continue to avoid benzodiazepines, reduce the possibility of delirium - monitor off antibiotics, trend temperature curve and WCC - Maintenance of sleep-wake cycle, avoid delirium - enteral nutritional support at goal rate as tolerated - Stress ulcer and VTE prophylaxis -ROM exercises - continue mobility, off loading and frequent turning per facility protocol, avoid pressure ulcers - Monitor hemodynamics closely - continue other care per attending / other consultants COVID SPECIFIC INTERVENTIONS - COVID-19 PCR negative CONDITION: CRITICAL PROGNOSIS: GUARDED CODE STATUS: FULL CODE The high probability of a clinically significant, sudden or life-threatening deterioration of the [respiratory, cardiovascular & neurologic] system(s) required my full and direct attention, intervention and personal management. The aggregate critical care time was [35] minutes without overlap. Time includes spent on; [x] Data Review and interpretation [x] Patient assessment and monitoring of vital signs [x] Documentation [x] Medication orders and management Subjective Date of service: 09/13/20 Principal diagnosis: Acute hypoxemic resp failure; Cardiac arrest with ROSC; Pneumonia; ANGELICA Interval history: Subjective Principal diagnosis: Acute hypoxemic resp failure; Cardiac arrest with ROSC; Pneumonia; ANGELICA Interval history: Patient is seen today for: Acute hypoxemic respiratory failure; Cardiac arrest with ROSC; Pneumonia; ANGELICA Seen and examined at bedside; 24hour events reviewed; nursing and respiratory care staff consulted; no adverse overnight events reported to me; resting in bed; remains on MVS; she will open her eyes on verbal command. Discussed with RT, re weaning trials, she states that the patient gets agitated when sedation is stopped No reported fevers, no vomiting Objective Vital Signs - 12hr 09/12/20 09/12/20 09/12/20 17:22 17:25 17:30 Temperature 97.9 F Pulse Rate 81 Respiratory 13 Rate Blood Pressure 138/85 O2 Sat by Pulse 98 95 Oximetry 09/12/20 09/12/20 09/12/20 18:00 18:30 19:00 Temperature Pulse Rate 66 57 L 67 Respiratory 12 12 12 Rate Blood Pressure 130/75 115/54 111/58 O2 Sat by Pulse 96 98 99 Oximetry 09/12/20 09/12/20 09/12/20 19:28 19:30 19:45 Temperature 98.2 F Pulse Rate 54 L 65 Respiratory 12 12 Rate Blood Pressure 117/66 O2 Sat by Pulse 99 100 Oximetry 09/12/20 09/12/20 09/12/20 20:00 20:01 20:15 Temperature Pulse Rate 66 53 L 55 L Respiratory 12 12 Rate Blood Pressure 120/68 O2 Sat by Pulse 99 99 Oximetry 09/12/20 09/12/20 09/12/20 20:30 20:45 20:48 Temperature Pulse Rate 60 58 L 74 Respiratory 13 12 Rate Blood Pressure 135/70 124/72 124/72 O2 Sat by Pulse 96 99 98 Oximetry 09/12/20 09/12/20 09/12/20 21:00 21:15 21:30 Temperature Pulse Rate 59 L 57 L 51 L Respiratory 12 12 12 Rate Blood Pressure 127/64 116/70 113/64 O2 Sat by Pulse 99 98 99 Oximetry 09/12/20 09/12/20 09/12/20 21:45 22:00 22:15 Temperature Pulse Rate 74 70 54 L Respiratory 19 12 12 Rate Blood Pressure 126/90 119/75 116/69 O2 Sat by Pulse 94 98 99 Oximetry 09/12/20 09/12/20 09/12/20 22:30 22:45 23:00 Temperature Pulse Rate 59 L 62 54 L Respiratory 12 13 12 Rate Blood Pressure 110/67 126/73 117/67 O2 Sat by Pulse 99 97 99 Oximetry 09/12/20 09/12/20 09/12/20 23:05 23:15 23:30 Temperature Pulse Rate 55 L 54 L 58 L Respiratory 12 12 12 Rate Blood Pressure 117/67 114/66 113/68 O2 Sat by Pulse 99 100 100 Oximetry 09/12/20 09/12/20 09/13/20 23:32 23:45 00:00 Temperature 98.5 F Pulse Rate 58 L 54 L Respiratory 12 12 Rate Blood Pressure 108/64 109/63 O2 Sat by Pulse 100 100 Oximetry 09/13/20 09/13/20 09/13/20 00:11 00:15 00:30 Temperature Pulse Rate 55 L 50 L 52 L Respiratory 12 12 Rate Blood Pressure 111/70 112/68 O2 Sat by Pulse 100 99 Oximetry 09/13/20 09/13/20 09/13/20 00:45 00:50 01:01 Temperature Pulse Rate 49 L 51 L 89 Respiratory 12 16 Rate Blood Pressure 112/69 112/69 147/87 O2 Sat by Pulse 100 100 95 Oximetry 09/13/20 09/13/20 09/13/20 01:15 01:31 01:45 Temperature Pulse Rate 52 L 54 L Respiratory 12 12 Rate Blood Pressure 132/78 145/121 128/73 O2 Sat by Pulse 98 99 96 Oximetry 09/13/20 09/13/20 09/13/20 02:00 02:15 02:30 Temperature Pulse Rate 56 L 59 L 55 L Respiratory 11 L 9 L 12 Rate Blood Pressure 125/69 117/71 118/69 O2 Sat by Pulse 97 98 98 Oximetry 09/13/20 09/13/20 02:49 04:32 Temperature 98.8 F Pulse Rate 66 Respiratory Rate Blood Pressure 122/66 O2 Sat by Pulse 100 Oximetry Constitutional: appears uncomfortable, other (young lady with mildly increased respiratory effort at rest on MVS) Eyes: non-icteric ENT: oropharynx moist, other (ETT 24 cm APOLINAR) Neck: supple, no lymphadenopathy, no JVD Effort: normal Percussion: Bilateral: not dull Cardiovascular: regular rate and rhythm, other (S1,S2) Gastrointestinal: normoactive bowel sounds Integumentary: normal Extremities: no cyanosis, no edema, pulses normal, no ischemia or petechiae Neurologic: non-focal exam (moves all extremities), pupils equal and round, unable to assess Psychiatric: other (delirious / agitated during SAT's) CBC and BMP: 09/13/20 04:45 09/14/20 04:37 ABG, PT/INR, D-dimer: ABG ABG pH 7.381 (7.320-7.450) 09/13/20 03:38 POC ABG pCO2 43.9 mmHg (32.0-48.0) 09/13/20 03:38 ABG pCO2 39.1 mm Hg 09/09/20 17:05 POC ABG pO2 91.3 mmHg (83-108) 09/13/20 03:38 ABG pO2 143.7 mm Hg (80.0-90.0) H 09/09/20 17:05 POC ABG HCO3 25.4 09/13/20 03:38 ABG O2 Saturation 97.2 (0-100) 09/13/20 03:38 PT/INR, D-dimer PT 19.2 Sec. (12.2-14.9) H 09/09/20 10:42 INR 1.57 (0.87-1.13) H 09/09/20 10:42 D-Dimer 5936.95 ng/mlDDU (0-234) H 09/09/20 14:31 Abnormal lab findings: Abnormal Labs 09/09/20 09/09/20 09/09/20 10:42 10:42 10:42 WBC RBC MCV 100 H MCHC Lymph % (Auto) Lymph # (Auto) Seg Neutrophils % Seg Neuts % (Manual) 33.0 L Lymphocytes % (Manual) 41.0 H Nucleated RBC % 1.0 H PT 19.2 H INR 1.57 H APTT 42.5 H D-Dimer ABG pH POC ABG pCO2 POC ABG pO2 ABG pO2 ABG HCO3 ABG Base Excess ABG Hemoglobin ABG Oxyhemoglobin ABG Potassium ABG Chloride ABG Glucose Oxyhemoglobin Carboxyhemoglobin Sodium Potassium 5.4 H Chloride Carbon Dioxide 17 L BUN 25 H Creatinine 2.5 H Glucose 205 H POC Glucose Lactic Acid Calcium Magnesium Ferritin AST 60 H ALT Lactate Dehydrogenase Total Creatine Kinase Troponin T 0.092 H C-Reactive Protein Total Protein 5.3 L Albumin 3.0 L HDL Cholesterol Arterial Blood Glucose Arterial Blood Ionized Calcium Urine WBC (Auto) Salicylates Acetaminophen 09/09/20 09/09/20 09/09/20 10:42 10:42 10:42 WBC RBC MCV MCHC Lymph % (Auto) Lymph # (Auto) Seg Neutrophils % Seg Neuts % (Manual) Lymphocytes % (Manual) Nucleated RBC % PT INR APTT D-Dimer ABG pH POC ABG pCO2 POC ABG pO2 ABG pO2 ABG HCO3 ABG Base Excess ABG Hemoglobin ABG Oxyhemoglobin ABG Potassium ABG Chloride ABG Glucose Oxyhemoglobin Carboxyhemoglobin Sodium Potassium Chloride Carbon Dioxide BUN Creatinine Glucose POC Glucose Lactic Acid 16.60 H* Calcium Magnesium 3.30 H Ferritin AST ALT Lactate Dehydrogenase Total Creatine Kinase 166 H Troponin T C-Reactive Protein Total Protein Albumin HDL Cholesterol Arterial Blood Glucose Arterial Blood Ionized Calcium Urine WBC (Auto) Salicylates Acetaminophen 09/09/20 09/09/20 09/09/20 10:42 10:42 11:30 WBC RBC MCV MCHC Lymph % (Auto) Lymph # (Auto) Seg Neutrophils % Seg Neuts % (Manual) Lymphocytes % (Manual) Nucleated RBC % PT INR APTT D-Dimer ABG pH 6.919 L* POC ABG pCO2 POC ABG pO2 ABG pO2 127.2 H ABG HCO3 10.3 L ABG Base Excess -21.7 L ABG Hemoglobin 10.8 L ABG Oxyhemoglobin ABG Potassium ABG Chloride ABG Glucose Oxyhemoglobin 94.2 L Carboxyhemoglobin Sodium Potassium Chloride Carbon Dioxide BUN Creatinine Glucose POC Glucose Lactic Acid Calcium Magnesium Ferritin AST ALT Lactate Dehydrogenase Total Creatine Kinase Troponin T C-Reactive Protein Total Protein Albumin HDL Cholesterol Arterial Blood Glucose Arterial Blood Ionized Calcium Urine WBC (Auto) Salicylates < 0.3 L Acetaminophen 5.0 L 09/09/20 09/09/20 09/09/20 14:31 14:31 14:31 WBC RBC MCV MCHC Lymph % (Auto) Lymph # (Auto) Seg Neutrophils % Seg Neuts % (Manual) Lymphocytes % (Manual) Nucleated RBC % PT INR APTT D-Dimer 5936.95 H ABG pH POC ABG pCO2 POC ABG pO2 ABG pO2 ABG HCO3 ABG Base Excess ABG Hemoglobin ABG Oxyhemoglobin ABG Potassium ABG Chloride ABG Glucose Oxyhemoglobin Carboxyhemoglobin Sodium Potassium Chloride Carbon Dioxide BUN Creatinine Glucose POC Glucose Lactic Acid Calcium Magnesium Ferritin AST ALT Lactate Dehydrogenase 513 H Total Creatine Kinase Troponin T 0.140 H* D C-Reactive Protein 3.80 H Total Protein Albumin HDL Cholesterol 31 L Arterial Blood Glucose Arterial Blood Ionized Calcium Urine WBC (Auto) Salicylates Acetaminophen 09/09/20 09/09/20 09/09/20 14:31 14:31 16:39 WBC RBC MCV MCHC Lymph % (Auto) Lymph # (Auto) Seg Neutrophils % Seg Neuts % (Manual) Lymphocytes % (Manual) Nucleated RBC % PT INR APTT D-Dimer ABG pH POC ABG pCO2 POC ABG pO2 ABG pO2 ABG HCO3 ABG Base Excess ABG Hemoglobin ABG Oxyhemoglobin ABG Potassium ABG Chloride ABG Glucose Oxyhemoglobin Carboxyhemoglobin Sodium Potassium Chloride Carbon Dioxide BUN Creatinine Glucose POC Glucose Lactic Acid 7.20 H* Calcium Magnesium Ferritin 1995.0 H AST ALT Lactate Dehydrogenase Total Creatine Kinase Troponin T 0.174 H* D C-Reactive Protein Total Protein Albumin HDL Cholesterol Arterial Blood Glucose Arterial Blood Ionized Calcium Urine WBC (Auto) Salicylates Acetaminophen 09/09/20 09/09/20 09/10/20 17:05 Unknown 04:19 WBC RBC MCV MCHC Lymph % (Auto) Lymph # (Auto) Seg Neutrophils % Seg Neuts % (Manual) Lymphocytes % (Manual) Nucleated RBC % PT INR APTT D-Dimer ABG pH 7.278 L 7.497 H POC ABG pCO2 25.0 L POC ABG pO2 ABG pO2 143.7 H ABG HCO3 17.9 L ABG Base Excess -8.3 L ABG Hemoglobin 11.6 L ABG Oxyhemoglobin ABG Potassium ABG Chloride 112.0 H ABG Glucose 113 H Oxyhemoglobin Carboxyhemoglobin 0.3 L Sodium Potassium Chloride Carbon Dioxide BUN Creatinine Glucose POC Glucose Lactic Acid Calcium Magnesium Ferritin AST ALT Lactate Dehydrogenase Total Creatine Kinase Troponin T C-Reactive Protein Total Protein Albumin HDL Cholesterol Arterial Blood Glucose 113 H Arterial Blood Ionized Calcium Urine WBC (Auto) 7.0 H Salicylates Acetaminophen 09/10/20 09/10/20 09/10/20 04:42 04:42 04:42 WBC RBC 3.64 L MCV MCHC 35 H Lymph % (Auto) 11.0 L Lymph # (Auto) 0.9 L Seg Neutrophils % 82.7 H Seg Neuts % (Manual) Lymphocytes % (Manual) Nucleated RBC % PT INR APTT D-Dimer ABG pH POC ABG pCO2 POC ABG pO2 ABG pO2 ABG HCO3 ABG Base Excess ABG Hemoglobin ABG Oxyhemoglobin ABG Potassium ABG Chloride ABG Glucose Oxyhemoglobin Carboxyhemoglobin Sodium Potassium 3.5 L D Chloride 108.4 H Carbon Dioxide BUN 33 H Creatinine 1.5 H Glucose 107 H POC Glucose Lactic Acid 2.20 H* Calcium 7.2 L D Magnesium Ferritin AST 220 H ALT 117 H Lactate Dehydrogenase Total Creatine Kinase Troponin T C-Reactive Protein Total Protein 5.5 L Albumin 3.0 L HDL Cholesterol Arterial Blood Glucose Arterial Blood Ionized Calcium Urine WBC (Auto) Salicylates Acetaminophen 09/10/20 09/11/20 09/11/20 10:34 00:46 03:08 WBC RBC MCV MCHC Lymph % (Auto) Lymph # (Auto) Seg Neutrophils % Seg Neuts % (Manual) Lymphocytes % (Manual) Nucleated RBC % PT INR APTT D-Dimer ABG pH 7.521 H POC ABG pCO2 25.2 L POC ABG pO2 137.4 H ABG pO2 ABG HCO3 ABG Base Excess ABG Hemoglobin 10.2 L ABG Oxyhemoglobin 98.1 H ABG Potassium 3.1 L ABG Chloride 116.0 H ABG Glucose 123 H Oxyhemoglobin Carboxyhemoglobin Sodium Potassium Chloride Carbon Dioxide BUN Creatinine Glucose POC Glucose 124 H Lactic Acid 2.40 H* Calcium Magnesium Ferritin AST ALT Lactate Dehydrogenase Total Creatine Kinase Troponin T C-Reactive Protein Total Protein Albumin HDL Cholesterol Arterial Blood Glucose 123 H Arterial Blood Ionized Calcium 4.3 L Urine WBC (Auto) Salicylates Acetaminophen 09/11/20 09/11/20 09/11/20 10:04 10:04 12:00 WBC 16.7 H RBC 3.33 L MCV MCHC Lymph % (Auto) Lymph # (Auto) Seg Neutrophils % Seg Neuts % (Manual) Lymphocytes % (Manual) Nucleated RBC % PT INR APTT D-Dimer ABG pH POC ABG pCO2 POC ABG pO2 ABG pO2 ABG HCO3 ABG Base Excess ABG Hemoglobin ABG Oxyhemoglobin ABG Potassium ABG Chloride ABG Glucose Oxyhemoglobin Carboxyhemoglobin Sodium 147 H Potassium 3.3 L Chloride 115.6 H Carbon Dioxide BUN 24 H Creatinine Glucose 110 H POC Glucose 122 H Lactic Acid Calcium 8.1 L Magnesium Ferritin AST ALT Lactate Dehydrogenase Total Creatine Kinase Troponin T C-Reactive Protein Total Protein Albumin HDL Cholesterol Arterial Blood Glucose Arterial Blood Ionized Calcium Urine WBC (Auto) Salicylates Acetaminophen 09/11/20 09/11/20 09/11/20 17:20 17:48 23:23 WBC RBC MCV MCHC Lymph % (Auto) Lymph # (Auto) Seg Neutrophils % Seg Neuts % (Manual) Lymphocytes % (Manual) Nucleated RBC % PT INR APTT D-Dimer ABG pH 7.295 L POC ABG pCO2 POC ABG pO2 ABG pO2 ABG HCO3 ABG Base Excess ABG Hemoglobin 11.6 L ABG Oxyhemoglobin ABG Potassium ABG Chloride 113.0 H ABG Glucose 104 H Oxyhemoglobin Carboxyhemoglobin 0.1 L Sodium Potassium Chloride Carbon Dioxide BUN Creatinine Glucose POC Glucose 117 H 111 H Lactic Acid Calcium Magnesium Ferritin AST ALT Lactate Dehydrogenase Total Creatine Kinase Troponin T C-Reactive Protein Total Protein Albumin HDL Cholesterol Arterial Blood Glucose 104 H Arterial Blood Ionized Calcium Urine WBC (Auto) Salicylates Acetaminophen 09/11/20 09/12/20 09/12/20 Unknown 01:44 02:25 WBC RBC MCV MCHC Lymph % (Auto) Lymph # (Auto) Seg Neutrophils % Seg Neuts % (Manual) Lymphocytes % (Manual) Nucleated RBC % PT INR APTT D-Dimer ABG pH POC ABG pCO2 POC ABG pO2 42.9 L 118.0 H ABG pO2 ABG HCO3 ABG Base Excess ABG Hemoglobin 9.9 L 9.9 L ABG Oxyhemoglobin 78.9 L ABG Potassium ABG Chloride 117.0 H 116.0 H ABG Glucose 112 H 114 H Oxyhemoglobin Carboxyhemoglobin 0.3 L 0.3 L Sodium Potassium Chloride Carbon Dioxide BUN Creatinine Glucose POC Glucose Lactic Acid Calcium Magnesium 2.50 H Ferritin AST ALT Lactate Dehydrogenase Total Creatine Kinase Troponin T C-Reactive Protein Total Protein Albumin HDL Cholesterol Arterial Blood Glucose 112 H 114 H Arterial Blood Ionized Calcium Urine WBC (Auto) Salicylates Acetaminophen 09/12/20 09/12/20 09/12/20 04:56 05:15 13:28 WBC RBC MCV MCHC Lymph % (Auto) Lymph # (Auto) Seg Neutrophils % Seg Neuts % (Manual) Lymphocytes % (Manual) Nucleated RBC % PT INR APTT D-Dimer ABG pH POC ABG pCO2 POC ABG pO2 ABG pO2 ABG HCO3 ABG Base Excess ABG Hemoglobin ABG Oxyhemoglobin ABG Potassium ABG Chloride ABG Glucose Oxyhemoglobin Carboxyhemoglobin Sodium 150 H Potassium Chloride 118.1 H Carbon Dioxide BUN 22 H Creatinine Glucose 113 H POC Glucose 107 H Lactic Acid Calcium Magnesium Ferritin AST ALT Lactate Dehydrogenase Total Creatine Kinase Troponin T 0.160 H* C-Reactive Protein Total Protein Albumin HDL Cholesterol Arterial Blood Glucose Arterial Blood Ionized Calcium Urine WBC (Auto) Salicylates Acetaminophen 09/12/20 09/13/20 09/13/20 16:41 03:38 04:47 WBC RBC MCV MCHC Lymph % (Auto) Lymph # (Auto) Seg Neutrophils % Seg Neuts % (Manual) Lymphocytes % (Manual) Nucleated RBC % PT INR APTT D-Dimer ABG pH POC ABG pCO2 POC ABG pO2 ABG pO2 ABG HCO3 ABG Base Excess ABG Hemoglobin 10.3 L ABG Oxyhemoglobin ABG Potassium ABG Chloride 111.0 H ABG Glucose 115 H Oxyhemoglobin Carboxyhemoglobin 0.3 L Sodium Potassium Chloride Carbon Dioxide BUN Creatinine Glucose POC Glucose 114 H 112 H Lactic Acid Calcium Magnesium Ferritin AST ALT Lactate Dehydrogenase Total Creatine Kinase Troponin T C-Reactive Protein Total Protein Albumin HDL Cholesterol Arterial Blood Glucose 115 H Arterial Blood Ionized Calcium 4.5 L Urine WBC (Auto) Salicylates Acetaminophen Chest x-ray: image reviewed Allied health notes reviewed: RT
[2020-09-13] MEDS: AMPICILLIN/SULBACTA 1.5GM/50ML 1.5 GM/50 ML BAG IV SCH ×4 (05:43→21:14)
[2020-09-13 06:32] LABS: Basophils % (Auto) 0.2 % (0.0-1.8); Eosinophils # (Auto) 0.2 K/mm3 (0.0-0.4); Eosinophils % (Auto) 1.6 % (0.0-4.3); Hematocrit 29.7 % (30.3-42.9); Hemoglobin 9.9 gm/dl (10.1-14.3); Lymphocytes # (Auto) 1.8 K/mm3 (1.2-5.4); Lymphocytes % (Auto) 16.2 % (13.4-35.0); Mean Corpuscular HGB Conc 34 % (30-34); Mean Corpuscular Volume 93 fl (79-97); Monocytes # (Auto) 0.6 K/mm3 (0.0-0.8); Monocytes % (Auto) 5.3 % (0.0-7.3); Platelet Count 158 K/mm3 (140-440); Red Cell Distribution Width 13.8 % (13.2-15.2)
[2020-09-13 06:42] LABS: BUN/Creatinine Ratio 24; Blood Urea Nitrogen 19 mg/dL (7-17); Hemolysis Index 0
[2020-09-13] MEDS: FAMOTIDINE 20 MG TAB PO SCH ×2 (09:40→21:14)
[2020-09-13] MEDS: SENNOSIDES/DOCUSATE SODIUM 8.6/50 MG TAB FEEDTUBE SCH ×2 (09:40→21:14)
[2020-09-13] MEDS: HEPARIN 5,000 UNIT/1 ML VIAL SUB-Q SCH ×2 (09:40→21:14)
[2020-09-13] MEDS: SERTRALINE 50 MG TAB PO SCH ×2 (09:40→21:14)
--- NOTE | 2020-09-13 10:25 | Progress Note ---
Assessment and Plan Clinically improving. QT prolongation has also improved -optimize electrolytes and recheck EKG today. Patient in stable sinus bradycardia. Possible extubation today. We will follow along. - Patient Problems (1) Cardiac arrest Current Visit: Yes Status: Acute (2) Cardiac arrest with successful resuscitation Current Visit: Yes Status: Acute (3) Cocaine abuse Current Visit: Yes Status: Acute (4) Marijuana use Current Visit: Yes Status: Acute (5) Metabolic acidosis Current Visit: Yes Status: Acute (6) Renal insufficiency Current Visit: Yes Status: Acute (7) Shock circulatory Current Visit: Yes Status: Acute (8) Toxic metabolic encephalopathy Current Visit: Yes Status: Acute Subjective Date of service: 09/13/20 Principal diagnosis: Acute hypoxemic resp failure; Cardiac arrest with ROSC; Pneumonia; ANGELICA Objective Vital Signs Temp Pulse Pulse Resp BP Pulse Ox 09/13/20 07:58 53 L 13 129/80 100 09/13/20 07:24 98.9 F 09/13/20 06:15 53 L 12 129/80 100 09/13/20 06:00 60 12 125/79 100 09/13/20 05:45 50 L 12 133/82 100 09/13/20 05:30 52 L 12 123/73 100 09/13/20 05:15 58 L 12 116/70 100 09/13/20 05:00 56 L 12 117/73 100 09/13/20 04:45 62 12 117/74 100 09/13/20 04:32 66 122/66 100 09/13/20 04:30 52 L 11 L 122/66 98 09/13/20 04:25 60 09/13/20 04:15 51 L 10 L 121/72 99 09/13/20 04:00 55 L 13 121/73 99 09/13/20 03:45 54 L 11 L 116/72 98 09/13/20 03:30 52 L 12 127/73 98 09/13/20 03:15 59 L 12 118/76 98 09/13/20 03:00 62 12 117/67 99 09/13/20 02:49 98.8 F 09/13/20 02:45 61 12 113/69 98 09/13/20 02:30 55 L 12 118/69 98 09/13/20 02:15 59 L 9 L 117/71 98 09/13/20 02:00 56 L 11 L 125/69 97 08/07/21 01:45 54 L 12 128/73 96 09/13/20 01:31 145/121 99 09/13/20 01:15 52 L 12 132/78 98 09/13/20 01:01 89 16 147/87 95 09/13/20 00:50 51 L 112/69 100 09/13/20 00:45 49 L 12 112/69 100 09/13/20 00:30 52 L 12 112/68 99 09/13/20 00:15 50 L 12 111/70 100 09/13/20 00:11 55 L 09/13/20 00:00 54 L 12 109/63 100 09/12/20 23:45 58 L 12 108/64 100 09/12/20 23:32 98.5 F 09/12/20 23:30 58 L 12 113/68 100 09/12/20 23:15 54 L 12 114/66 100 09/12/20 23:05 55 L 12 117/67 99 09/12/20 23:00 54 L 12 117/67 99 09/12/20 22:45 62 13 126/73 97 09/12/20 22:30 59 L 12 110/67 99 09/12/20 22:15 54 L 12 116/69 99 09/12/20 22:00 70 12 119/75 98 09/12/20 21:45 74 19 126/90 94 09/12/20 21:30 51 L 12 113/64 99 09/12/20 21:15 57 L 12 116/70 98 09/12/20 21:00 59 L 12 127/64 99 09/12/20 20:48 74 124/72 98 09/12/20 20:45 58 L 12 124/72 99 09/12/20 20:30 60 13 135/70 96 09/12/20 20:15 55 L 12 99 09/12/20 20:01 53 L 09/12/20 20:00 66 12 120/68 99 09/12/20 19:45 65 12 100 09/12/20 19:30 54 L 12 117/66 99 09/12/20 19:28 98.2 F 09/12/20 19:00 67 12 111/58 99 09/12/20 18:30 57 L 12 115/54 98 09/12/20 18:00 66 12 130/75 96 09/12/20 17:30 81 13 138/85 95 09/12/20 17:25 97.9 F 09/12/20 17:22 98 09/12/20 17:00 67 9 L 133/88 100 09/12/20 16:30 63 8 L 130/79 100 09/12/20 16:00 52 L 48 L 16 116/74 100 09/12/20 15:30 48 L 16 111/60 99 09/12/20 15:03 51 L 105/67 99 09/12/20 15:00 53 L 16 105/67 99 09/12/20 14:31 55 L 16 96 09/12/20 14:01 60 16 93 09/12/20 13:32 55 L 16 95 09/12/20 12:00 62 62 16 98 09/12/20 10:30 52 L 16 109/63 100 - Physical Examination General: Other (Patient intubated and sedated) HEENT: Positive: Normocephaly Neck: Positive: trachea midline Neuro: Positive: Other (unble to assess) Abdomen: Positive: Soft, Active Bowel Sounds Skin: Negative: Rash, Suspicious Lesions Extremities: Present: upper extr. pulses, lower extr. pulses, +1 Edema - Labs and Meds CBC 09/13/20 Range/Units 04:45 WBC 11.0 (4.5-11.0) K/mm3 RBC 3.20 L (3.65-5.03) M/mm3 Hgb 9.9 L (10.1-14.3) gm/dl Hct 29.7 L (30.3-42.9) % Plt Count 158 (140-440) K/mm3 Lymph # (Auto) 1.8 (1.2-5.4) K/mm3 [place] # (Auto) 0.6 (0.0-0.8) K/mm3 Eos # (Auto) 0.2 (0.0-0.4) K/mm3 Baso # (Auto) 0.0 (0.0-0.1) K/mm3 Comprehensive Metabolic Panel 09/13/20 Range/Units 04:45 Sodium 146 H (137-145) mmol/L Potassium 3.9 (3.6-5.0) mmol/L Chloride 111.5 H (98-107) mmol/L Carbon Dioxide 25 (22-30) mmol/L BUN 19 H (7-17) mg/dL Creatinine 0.8 (0.6-1.2) mg/dL Glucose 112 H (65-100) mg/dL Calcium 8.0 L (8.4-10.2) mg/dL - Imaging and Cardiology EKG: report reviewed, image reviewed Echo: report reviewed - EKG Sinus rhythms and dysrhythmias: sinus rhythm Repolarization changes or abnormalities: Q-T interval prolongation - Allied health notes Allied health notes reviewed: nursing
--- NOTE | 2020-09-13 12:10 | Progress Note ---
Assessment and Plan Assessment and Plan # Cardiac arrest -s/p cardiac resucitation -intubated off sedation today -CT brain is unremarkable -UDS positive for [place] and [place] -Patient treated" with ACLS protocol with eventual return of perfusing cardiac rhythm. -EEG is remarkable forslight slowing -MRI brain is showed none specific both parieto-occipital changes -- need repeat MRI with Gd # Anoxic brain injury -CT head is unremarkable - neuro check move all as per nurse -pt. is intubated and sedated on Propofol and Fentanyl -Suggest EEG off sedation if possible -Brain MRI noted # Sepsis -Sepsis protocol: CBC, CMP, chest x-ray, IV antibiotic therapy, IV fluid resuscitation therapy, monitor urine output every shift, IV pressor support, serial lactic acid level, maintain mean arterial pressure greater than equal 65, blood culture. -Echo is unremarkable # Acute hypoxemic respiratory failure -Patient intubated and ambulatory support, -wean vent as tolerated, -critical care team consulted in ED, - spontaneous breathing trial daily, -daily ABG, chest x-ray, # Metabolic acidosis -IV fluid resuscitation therapy, IV bicarbonate therapy, supportive care, BMP, repeat BMP in a.m. # Toxic metabolic encephalopathy -CT head, neuro check, treat sepsis, supportive care, IV fluid resuscitation therapy, serial lactic acid level. # Aspiration pneumonia Pneumonia protocol: Chest x-ray, CBC, CMP, IV antibiotic therapy, wean vent as tolerated. # DVT prophylaxis -SCD to bilateral lower extremities while in bed, prophylactic anticoagulation # Advance care planning -Disease education conducted, care plan discussed, diagnosis discussed, prognosis discussed, [x] Data Review and interpretation [x] Patient assessment and monitoring of vital signs [x] Documentation [x] Medication orders and management PLAN 1- No sedation and extubate when stable 2- Repeat MRI brain with gd 3- Prognosis is improving 4- Avoid recreational drug and alcohol to cancell pt. will follow Subjective Date of service: 09/13/20 Principal diagnosis: Acute hypoxemic resp failure; Cardiac arrest with ROSC; Pneumonia; ANGELICA Interval history: still intubated offf sedation today MRI brain is done result suggest meningeal enhancment parieto occipital Bilateral vs PRESS ? EEG is unremarkable echo is unremarkable Objective - Vital Sign Vital Signs - 12hr 09/13/20 09/13/20 09/13/20 00:11 00:15 00:30 Temperature Pulse Rate 55 L 50 L 52 L Pulse Rate [ From Monitor] Respiratory 12 12 Rate Blood Pressure 111/70 112/68 O2 Sat by Pulse 100 99 Oximetry 09/13/20 09/13/20 09/13/20 00:45 00:50 01:01 Temperature Pulse Rate 49 L 51 L 89 Pulse Rate [ From Monitor] Respiratory 12 16 Rate Blood Pressure 112/69 112/69 147/87 O2 Sat by Pulse 100 100 95 Oximetry 09/13/20 09/13/20 09/13/20 01:15 01:31 01:45 Temperature Pulse Rate 52 L 54 L Pulse Rate [ From Monitor] Respiratory 12 12 Rate Blood Pressure 132/78 145/121 128/73 O2 Sat by Pulse 98 99 96 Oximetry 09/13/20 09/13/20 09/13/20 02:00 02:15 02:30 Temperature Pulse Rate 56 L 59 L 55 L Pulse Rate [ From Monitor] Respiratory 11 L 9 L 12 Rate Blood Pressure 125/69 117/71 118/69 O2 Sat by Pulse 97 98 98 Oximetry 09/13/20 09/13/20 09/13/20 02:45 02:49 03:00 Temperature 98.8 F Pulse Rate 61 62 Pulse Rate [ From Monitor] Respiratory 12 12 Rate Blood Pressure 113/69 117/67 O2 Sat by Pulse 98 99 Oximetry 09/13/20 09/13/20 09/13/20 03:15 03:30 03:45 Temperature Pulse Rate 59 L 52 L 54 L Pulse Rate [ From Monitor] Respiratory 12 12 11 L Rate Blood Pressure 118/76 127/73 116/72 O2 Sat by Pulse 98 98 98 Oximetry 09/13/20 09/13/20 09/13/20 04:00 04:15 04:25 Temperature Pulse Rate 55 L 51 L 60 Pulse Rate [ From Monitor] Respiratory 13 10 L Rate Blood Pressure 121/73 121/72 O2 Sat by Pulse 99 99 Oximetry 09/13/20 09/13/20 09/13/20 04:30 04:32 04:45 Temperature Pulse Rate 52 L 66 62 Pulse Rate [ From Monitor] Respiratory 11 L 12 Rate Blood Pressure 122/66 122/66 117/74 O2 Sat by Pulse 98 100 100 Oximetry 09/13/20 09/13/20 09/13/20 05:00 05:15 05:30 Temperature Pulse Rate 56 L 58 L 52 L Pulse Rate [ From Monitor] Respiratory 12 12 12 Rate Blood Pressure 117/73 116/70 123/73 O2 Sat by Pulse 100 100 100 Oximetry 09/13/20 09/13/20 09/13/20 05:45 06:00 06:15 Temperature Pulse Rate 50 L 60 53 L Pulse Rate [ From Monitor] Respiratory 12 12 12 Rate Blood Pressure 133/82 125/79 129/80 O2 Sat by Pulse 100 100 100 Oximetry 09/13/20 09/13/20 09/13/20 06:30 06:45 07:00 Temperature Pulse Rate 54 L 56 L 55 L Pulse Rate [ From Monitor] Respiratory 12 12 14 Rate Blood Pressure 130/84 126/78 136/86 O2 Sat by Pulse 100 100 100 Oximetry 09/13/20 09/13/20 09/13/20 07:15 07:24 07:30 Temperature 98.9 F Pulse Rate 55 L 55 L Pulse Rate [ From Monitor] Respiratory 12 12 Rate Blood Pressure 144/90 121/81 O2 Sat by Pulse 100 Oximetry 09/13/20 09/13/20 09/13/20 07:45 07:58 08:00 Temperature Pulse Rate 54 L 53 L 60 Pulse Rate [ 59 L From Monitor] Respiratory 15 13 16 Rate Blood Pressure 134/85 129/80 131/74 O2 Sat by Pulse 97 100 97 Oximetry 09/13/20 09/13/20 09/13/20 08:15 08:30 08:45 Temperature Pulse Rate 53 L 52 L 54 L Pulse Rate [ From Monitor] Respiratory 14 13 14 Rate Blood Pressure 136/79 126/75 130/65 O2 Sat by Pulse 97 98 97 Oximetry 09/13/20 09/13/20 09/13/20 09:00 09:15 09:30 Temperature Pulse Rate 58 L 54 L 54 L Pulse Rate [ From Monitor] Respiratory 13 13 13 Rate Blood Pressure 127/83 127/79 128/76 O2 Sat by Pulse 99 99 98 Oximetry 09/13/20 09/13/20 09/13/20 09:45 10:00 10:15 Temperature Pulse Rate 62 52 L 57 L Pulse Rate [ From Monitor] Respiratory 12 13 13 Rate Blood Pressure 127/76 127/78 132/83 O2 Sat by Pulse 99 98 98 Oximetry 09/13/20 09/13/20 11:18 11:46 Temperature 98.3 F Pulse Rate 63 Pulse Rate [ From Monitor] Respiratory 13 Rate Blood Pressure 127/77 O2 Sat by Pulse 98 Oximetry - General Apperance Constitutional: comfortable - EENT EENT: PERRL, mucous membranes moist - Respiratory Respiratory: chest non-tender, lungs clear, rhonchi - Cardiovascular Cardiovascular: regular rate, normal S1, normal S2 Extremities: no peripheral edema bilat, no clubbing, cyanosis - Gastrointestinal Gastrointestinal: normoactive bowel sounds - Integumentary Integumentary: normal - Neurologic Cranial nerve examination: intact Detailed motor examination: grossly full strength in - Laboratory Findings CBC and BMP: 09/13/20 04:45 09/13/20 04:45 Abnormal Lab Findings: Abnormal Labs 09/09/20 09/09/20 09/09/20 10:42 10:42 10:42 WBC RBC Hgb Hct MCV 100 H MCHC Lymph % (Auto) Lymph # (Auto) Seg Neutrophils % Seg Neuts % (Manual) 33.0 L Lymphocytes % (Manual) 41.0 H Nucleated RBC % 1.0 H Seg Neutrophils # PT 19.2 H INR 1.57 H APTT 42.5 H D-Dimer ABG pH POC ABG pCO2 POC ABG pO2 ABG pO2 ABG HCO3 ABG Base Excess ABG Hemoglobin ABG Oxyhemoglobin ABG Potassium ABG Chloride ABG Glucose Oxyhemoglobin Carboxyhemoglobin Sodium Potassium 5.4 H Chloride Carbon Dioxide 17 L BUN 25 H Creatinine 2.5 H Glucose 205 H POC Glucose Lactic Acid Calcium Magnesium Ferritin AST 60 H ALT Lactate Dehydrogenase Total Creatine Kinase Troponin T 0.092 H C-Reactive Protein Total Protein 5.3 L Albumin 3.0 L HDL Cholesterol Arterial Blood Glucose Arterial Blood Ionized Calcium Urine WBC (Auto) Salicylates Acetaminophen 09/09/20 09/09/20 09/09/20 10:42 10:42 10:42 WBC RBC Hgb Hct MCV MCHC Lymph % (Auto) Lymph # (Auto) Seg Neutrophils % Seg Neuts % (Manual) Lymphocytes % (Manual) Nucleated RBC % Seg Neutrophils # PT INR APTT D-Dimer ABG pH POC ABG pCO2 POC ABG pO2 ABG pO2 ABG HCO3 ABG Base Excess ABG Hemoglobin ABG Oxyhemoglobin ABG Potassium ABG Chloride ABG Glucose Oxyhemoglobin Carboxyhemoglobin Sodium Potassium Chloride Carbon Dioxide BUN Creatinine Glucose POC Glucose Lactic Acid 16.60 H* Calcium Magnesium 3.30 H Ferritin AST ALT Lactate Dehydrogenase Total Creatine Kinase 166 H Troponin T C-Reactive Protein Total Protein Albumin HDL Cholesterol Arterial Blood Glucose Arterial Blood Ionized Calcium Urine WBC (Auto) Salicylates Acetaminophen 09/09/20 09/09/20 09/09/20 10:42 10:42 11:30 WBC RBC Hgb Hct MCV MCHC Lymph % (Auto) Lymph # (Auto) Seg Neutrophils % Seg Neuts % (Manual) Lymphocytes % (Manual) Nucleated RBC % Seg Neutrophils # PT INR APTT D-Dimer ABG pH 6.919 L* POC ABG pCO2 POC ABG pO2 ABG pO2 127.2 H ABG HCO3 10.3 L ABG Base Excess -21.7 L ABG Hemoglobin 10.8 L ABG Oxyhemoglobin ABG Potassium ABG Chloride ABG Glucose Oxyhemoglobin 94.2 L Carboxyhemoglobin Sodium Potassium Chloride Carbon Dioxide BUN Creatinine Glucose POC Glucose Lactic Acid Calcium Magnesium Ferritin AST ALT Lactate Dehydrogenase Total Creatine Kinase Troponin T C-Reactive Protein Total Protein Albumin HDL Cholesterol Arterial Blood Glucose Arterial Blood Ionized Calcium Urine WBC (Auto) Salicylates < 0.3 L Acetaminophen 5.0 L 09/09/20 09/09/20 09/09/20 14:31 14:31 14:31 WBC RBC Hgb Hct MCV MCHC Lymph % (Auto) Lymph # (Auto) Seg Neutrophils % Seg Neuts % (Manual) Lymphocytes % (Manual) Nucleated RBC % Seg Neutrophils # PT INR APTT D-Dimer 5936.95 H ABG pH POC ABG pCO2 POC ABG pO2 ABG pO2 ABG HCO3 ABG Base Excess ABG Hemoglobin ABG Oxyhemoglobin ABG Potassium ABG Chloride ABG Glucose Oxyhemoglobin Carboxyhemoglobin Sodium Potassium Chloride Carbon Dioxide BUN Creatinine Glucose POC Glucose Lactic Acid Calcium Magnesium Ferritin AST ALT Lactate Dehydrogenase 513 H Total Creatine Kinase Troponin T 0.140 H* D C-Reactive Protein 3.80 H Total Protein Albumin HDL Cholesterol 31 L Arterial Blood Glucose Arterial Blood Ionized Calcium Urine WBC (Auto) Salicylates Acetaminophen 09/09/20 09/09/20 09/09/20 14:31 14:31 16:39 WBC RBC Hgb Hct MCV MCHC Lymph % (Auto) Lymph # (Auto) Seg Neutrophils % Seg Neuts % (Manual) Lymphocytes % (Manual) Nucleated RBC % Seg Neutrophils # PT INR APTT D-Dimer ABG pH POC ABG pCO2 POC ABG pO2 ABG pO2 ABG HCO3 ABG Base Excess ABG Hemoglobin ABG Oxyhemoglobin ABG Potassium ABG Chloride ABG Glucose Oxyhemoglobin Carboxyhemoglobin Sodium Potassium Chloride Carbon Dioxide BUN Creatinine Glucose POC Glucose Lactic Acid 7.20 H* Calcium Magnesium Ferritin 1995.0 H AST ALT Lactate Dehydrogenase Total Creatine Kinase Troponin T 0.174 H* D C-Reactive Protein Total Protein Albumin HDL Cholesterol Arterial Blood Glucose Arterial Blood Ionized Calcium Urine WBC (Auto) Salicylates Acetaminophen 09/09/20 09/09/20 09/10/20 17:05 Unknown 04:19 WBC RBC Hgb Hct MCV MCHC Lymph % (Auto) Lymph # (Auto) Seg Neutrophils % Seg Neuts % (Manual) Lymphocytes % (Manual) Nucleated RBC % Seg Neutrophils # PT INR APTT D-Dimer ABG pH 7.278 L 7.497 H POC ABG pCO2 25.0 L POC ABG pO2 ABG pO2 143.7 H ABG HCO3 17.9 L ABG Base Excess -8.3 L ABG Hemoglobin 11.6 L ABG Oxyhemoglobin ABG Potassium ABG Chloride 112.0 H ABG Glucose 113 H Oxyhemoglobin Carboxyhemoglobin 0.3 L Sodium Potassium Chloride Carbon Dioxide BUN Creatinine Glucose POC Glucose Lactic Acid Calcium Magnesium Ferritin AST ALT Lactate Dehydrogenase Total Creatine Kinase Troponin T C-Reactive Protein Total Protein Albumin HDL Cholesterol Arterial Blood Glucose 113 H Arterial Blood Ionized Calcium Urine WBC (Auto) 7.0 H Salicylates Acetaminophen 09/10/20 09/10/20 09/10/20 04:42 04:42 04:42 WBC RBC 3.64 L Hgb Hct MCV MCHC 35 H Lymph % (Auto) 11.0 L Lymph # (Auto) 0.9 L Seg Neutrophils % 82.7 H Seg Neuts % (Manual) Lymphocytes % (Manual) Nucleated RBC % Seg Neutrophils # PT INR APTT D-Dimer ABG pH POC ABG pCO2 POC ABG pO2 ABG pO2 ABG HCO3 ABG Base Excess ABG Hemoglobin ABG Oxyhemoglobin ABG Potassium ABG Chloride ABG Glucose Oxyhemoglobin Carboxyhemoglobin Sodium Potassium 3.5 L D Chloride 108.4 H Carbon Dioxide BUN 33 H Creatinine 1.5 H Glucose 107 H POC Glucose Lactic Acid 2.20 H* Calcium 7.2 L D Magnesium Ferritin AST 220 H ALT 117 H Lactate Dehydrogenase Total Creatine Kinase Troponin T C-Reactive Protein Total Protein 5.5 L Albumin 3.0 L HDL Cholesterol Arterial Blood Glucose Arterial Blood Ionized Calcium Urine WBC (Auto) Salicylates Acetaminophen 09/10/20 09/11/20 09/11/20 10:34 00:46 03:08 WBC RBC Hgb Hct MCV MCHC Lymph % (Auto) Lymph # (Auto) Seg Neutrophils % Seg Neuts % (Manual) Lymphocytes % (Manual) Nucleated RBC % Seg Neutrophils # PT INR APTT D-Dimer ABG pH 7.521 H POC ABG pCO2 25.2 L POC ABG pO2 137.4 H ABG pO2 ABG HCO3 ABG Base Excess ABG Hemoglobin 10.2 L ABG Oxyhemoglobin 98.1 H ABG Potassium 3.1 L ABG Chloride 116.0 H ABG Glucose 123 H Oxyhemoglobin Carboxyhemoglobin Sodium Potassium Chloride Carbon Dioxide BUN Creatinine Glucose POC Glucose 124 H Lactic Acid 2.40 H* Calcium Magnesium Ferritin AST ALT Lactate Dehydrogenase Total Creatine Kinase Troponin T C-Reactive Protein Total Protein Albumin HDL Cholesterol Arterial Blood Glucose 123 H Arterial Blood Ionized Calcium 4.3 L Urine WBC (Auto) Salicylates Acetaminophen 09/11/20 09/11/20 09/11/20 10:04 10:04 12:00 WBC 16.7 H RBC 3.33 L Hgb Hct MCV MCHC Lymph % (Auto) Lymph # (Auto) Seg Neutrophils % Seg Neuts % (Manual) Lymphocytes % (Manual) Nucleated RBC % Seg Neutrophils # PT INR APTT D-Dimer ABG pH POC ABG pCO2 POC ABG pO2 ABG pO2 ABG HCO3 ABG Base Excess ABG Hemoglobin ABG Oxyhemoglobin ABG Potassium ABG Chloride ABG Glucose Oxyhemoglobin Carboxyhemoglobin Sodium 147 H Potassium 3.3 L Chloride 115.6 H Carbon Dioxide BUN 24 H Creatinine Glucose 110 H POC Glucose 122 H Lactic Acid Calcium 8.1 L Magnesium Ferritin AST ALT Lactate Dehydrogenase Total Creatine Kinase Troponin T C-Reactive Protein Total Protein Albumin HDL Cholesterol Arterial Blood Glucose Arterial Blood Ionized Calcium Urine WBC (Auto) Salicylates Acetaminophen 09/11/20 09/11/20 09/11/20 17:20 17:48 23:23 WBC RBC Hgb Hct MCV MCHC Lymph % (Auto) Lymph # (Auto) Seg Neutrophils % Seg Neuts % (Manual) Lymphocytes % (Manual) Nucleated RBC % Seg Neutrophils # PT INR APTT D-Dimer ABG pH 7.295 L POC ABG pCO2 POC ABG pO2 ABG pO2 ABG HCO3 ABG Base Excess ABG Hemoglobin 11.6 L ABG Oxyhemoglobin ABG Potassium ABG Chloride 113.0 H ABG Glucose 104 H Oxyhemoglobin Carboxyhemoglobin 0.1 L Sodium Potassium Chloride Carbon Dioxide BUN Creatinine Glucose POC Glucose 117 H 111 H Lactic Acid Calcium Magnesium Ferritin AST ALT Lactate Dehydrogenase Total Creatine Kinase Troponin T C-Reactive Protein Total Protein Albumin HDL Cholesterol Arterial Blood Glucose 104 H Arterial Blood Ionized Calcium Urine WBC (Auto) Salicylates Acetaminophen 09/11/20 09/12/20 09/12/20 Unknown 01:44 02:25 WBC RBC Hgb Hct MCV MCHC Lymph % (Auto) Lymph # (Auto) Seg Neutrophils % Seg Neuts % (Manual) Lymphocytes % (Manual) Nucleated RBC % Seg Neutrophils # PT INR APTT D-Dimer ABG pH POC ABG pCO2 POC ABG pO2 42.9 L 118.0 H ABG pO2 ABG HCO3 ABG Base Excess ABG Hemoglobin 9.9 L 9.9 L ABG Oxyhemoglobin 78.9 L ABG Potassium ABG Chloride 117.0 H 116.0 H ABG Glucose 112 H 114 H Oxyhemoglobin Carboxyhemoglobin 0.3 L 0.3 L Sodium Potassium Chloride Carbon Dioxide BUN Creatinine Glucose POC Glucose Lactic Acid Calcium Magnesium 2.50 H Ferritin AST ALT Lactate Dehydrogenase Total Creatine Kinase Troponin T C-Reactive Protein Total Protein Albumin HDL Cholesterol Arterial Blood Glucose 112 H 114 H Arterial Blood Ionized Calcium Urine WBC (Auto) Salicylates Acetaminophen 09/12/20 09/12/20 09/12/20 04:56 05:15 13:28 WBC RBC Hgb Hct MCV MCHC Lymph % (Auto) Lymph # (Auto) Seg Neutrophils % Seg Neuts % (Manual) Lymphocytes % (Manual) Nucleated RBC % Seg Neutrophils # PT INR APTT D-Dimer ABG pH POC ABG pCO2 POC ABG pO2 ABG pO2 ABG HCO3 ABG Base Excess ABG Hemoglobin ABG Oxyhemoglobin ABG Potassium ABG Chloride ABG Glucose Oxyhemoglobin Carboxyhemoglobin Sodium 150 H Potassium Chloride 118.1 H Carbon Dioxide BUN 22 H Creatinine Glucose 113 H POC Glucose 107 H Lactic Acid Calcium Magnesium Ferritin AST ALT Lactate Dehydrogenase Total Creatine Kinase Troponin T 0.160 H* C-Reactive Protein Total Protein Albumin HDL Cholesterol Arterial Blood Glucose Arterial Blood Ionized Calcium Urine WBC (Auto) Salicylates Acetaminophen 09/12/20 09/13/2009/13/21 16:41 03:38 04:45 WBC RBC 3.20 L Hgb 9.9 L Hct 29.7 L MCV MCHC Lymph % (Auto) Lymph # (Auto) Seg Neutrophils % 76.7 H Seg Neuts % (Manual) Lymphocytes % (Manual) Nucleated RBC % Seg Neutrophils # 8.5 H PT INR APTT D-Dimer ABG pH POC ABG pCO2 POC ABG pO2 ABG pO2 ABG HCO3 ABG Base Excess ABG Hemoglobin 10.3 L ABG Oxyhemoglobin ABG Potassium ABG Chloride 111.0 H ABG Glucose 115 H Oxyhemoglobin Carboxyhemoglobin 0.3 L Sodium Potassium Chloride Carbon Dioxide BUN Creatinine Glucose POC Glucose 114 H Lactic Acid Calcium Magnesium Ferritin AST ALT Lactate Dehydrogenase Total Creatine Kinase Troponin T C-Reactive Protein Total Protein Albumin HDL Cholesterol Arterial Blood Glucose 115 H Arterial Blood Ionized Calcium 4.5 L Urine WBC (Auto) Salicylates Acetaminophen 09/13/20 09/13/20 09/13/20 04:45 04:47 11:30 WBC RBC Hgb Hct MCV MCHC Lymph % (Auto) Lymph # (Auto) Seg Neutrophils % Seg Neuts % (Manual) Lymphocytes % (Manual) Nucleated RBC % Seg Neutrophils # PT INR APTT D-Dimer ABG pH POC ABG pCO2 POC ABG pO2 ABG pO2 ABG HCO3 ABG Base Excess ABG Hemoglobin ABG Oxyhemoglobin ABG Potassium ABG Chloride ABG Glucose Oxyhemoglobin Carboxyhemoglobin Sodium 146 H Potassium Chloride 111.5 H Carbon Dioxide BUN 19 H Creatinine Glucose 112 H POC Glucose 112 H 120 H Lactic Acid Calcium 8.0 L Magnesium Ferritin AST ALT Lactate Dehydrogenase Total Creatine Kinase Troponin T C-Reactive Protein Total Protein Albumin HDL Cholesterol Arterial Blood Glucose Arterial Blood Ionized Calcium Urine WBC (Auto) Salicylates Acetaminophen
[2020-09-13] MEDS ORDERED: SODIUM BICARBONATE 325 MG TAB FEEDTUBE PRN (12:41)
[2020-09-13] MEDS ORDERED: LIPASE 10,500/PROTEASE 25,000/AMYLASE 43,750 (UNITS) DR CAP FEEDTUBE PRN (12:41)
[2020-09-13] MEDS ORDERED: SIMPLE SYRUP 15 ML FEEDTUBE PRN ×2 (12:41)
--- NOTE | 2020-09-13 12:50 | Progress Note ---
Assessment and Plan 25 YO Female with Asthma, morbid Obesity was bought to ER unresponsive. As per fianc the patient was in her usual state of health overnight while drinking alcohol with concomitant ingestion of ecstasy. Patient was found to be unresponsive in cardiac arrest, EMS was notified, Patient was intubated in the field. Patient initiated on ACLS protocol and subsequently transported to [facility] for further care and evaluation. CXR showed infiltrates, elevated troponin, UDS positive for cocaine/marijuana. Patient admitted to ICU and initiated on sepsis protocol. A/P --Sepsis with shock likely from aspiration PNA cont abx, follow Cx monitor lactic acid - trending down -- Acute hypoxemic respiratory failure Patient intubated and ambulatory support, wean vent as tolerated, critical care team consulted, spontaneous breathing trial daily, daily ABG, chest x-ray, -- Metabolic acidosis, resolved likely due to effect from cardiac arrest IV fluid resuscitation therapy, supportive care, repeat BMP in a.m. -- Toxic metabolic encephalopathy UDS +ve for cocaine/marijuana CT head/MRI brain without any acute findings --S/P Cardiac arrest Patient treated" with ACLS protocol with eventual return of perfusion cardiac rhythm. -- Anoxic brain injury, suspected CT head and MRI brain w/o any acute process follow clinically, neurology following -- Aspiration pneumonia Pneumonia protocol: Chest x-ray, CBC, CMP, IV antibiotic therapy, wean vent as tolerated. ruled out for COVID with -ve test --Elevated troponin ordered 2d echo, elevated likely from cardiac arrest cardiac consult -- DVT prophylaxis SCD to bilateral lower extremities while in bed, prophylactic anticoagulation --Advance care planning Full code status The high probability of a clinically significant, sudden or life threatening deterioration of the [multi] system(s) required my full and direct attention, intervention and personal management. The aggregate critical care time was [35] minutes. This time is in addition to time spent performing reported procedures but includes the following: [x] Data Review and interpretation [x] Patient assessment and monitoring of vital signs [x] Documentation [x] Medication orders and management Daily clinical course: 09/10/20: follow pending COVID test, CC consulted, will follow clinically and wean off from vent and pressor as tolerated. neuro consult. cont iv fluid hydration 09/11/20: negative for covid, cont abx for aspiration PNA. Patient remains intubated, neurology consulted and recommended MRI of the brain. Continue supportive care. Follow BMP for hyponatremia, continue IV fluid hydration with free water with tube feeding. 09/12/20: Cough present, MRI brain without any acute process. Neurology recommending EEG when off sedation. Continue empiric antibiotic for aspiration pneumonia, follow clinically wean off from sedation and ventilator support as tolerated. Continue tube feeding, free water and hypotonic fluid for hype rnatremia. 09/13/20: Patient clinically stable, off sedation since this morning. Plan for extubation today if tolerates. Continue to provide supportive care. Sodium level and potassium level normalized. Follow BMP. Continue empiric antibiotics for aspiration pneumonia. Subjective Date of service: 09/13/20 Principal diagnosis: Acute hypoxemic resp failure; Cardiac arrest with ROSC; Pneumonia; ANGELICA Interval history: patient seen and examined patient remains intubated noted vitals and discussed with RN at the bedside patient off levophed, off sedation since this am Objective - Exam Narrative Exam: GENERAL: well-developed and obese -[place] female lying on bed intubated and no discomfort. HEENT: Normocephalic. Atraumatic. No conjunctival congestion or icterus. Patient has moist mucous membranes. NECK: Supple. Trachea midline. CHEST/LUNGS: on mechanical ventilation, positive few crackles HEART/CARDIOVASCULAR: Regular in rate and rhythm. S1 and S2 positive. ABDOMEN: Abdomen is soft, nontender. Patient has normal bowel sounds. SKIN: There is no rash. Warm and dry. NEURO: off Sedation, moves extremities MUSCULOSKELETAL: No joint effusion or tenderness. EXTRIMITY: No edema, no cyanosis or clubbing. PSYCH: unable to assess - Constitutional Vitals: Vital Signs - 12hr 09/13/20 09/13/20 09/13/20 01:01 01:15 01:31 Temperature Pulse Rate 89 52 L Pulse Rate [ From Monitor] Respiratory 16 12 Rate Blood Pressure 147/87 132/78 145/121 O2 Sat by Pulse 95 98 99 Oximetry 09/13/20 09/13/20 09/13/20 01:45 02:00 02:15 Temperature Pulse Rate 54 L 56 L 59 L Pulse Rate [ From Monitor] Respiratory 12 11 L 9 L Rate Blood Pressure 128/73 125/69 117/71 O2 Sat by Pulse 96 97 98 Oximetry 09/13/20 09/13/20 09/13/20 02:30 02:45 02:49 Temperature 98.8 F Pulse Rate 55 L 61 Pulse Rate [ From Monitor] Respiratory 12 12 Rate Blood Pressure 118/69 113/69 O2 Sat by Pulse 98 98 Oximetry 09/13/20 09/13/20 09/13/20 03:00 03:15 03:30 Temperature Pulse Rate 62 59 L 52 L Pulse Rate [ From Monitor] Respiratory 12 12 12 Rate Blood Pressure 117/67 118/76 127/73 O2 Sat by Pulse 99 98 98 Oximetry 09/13/20 09/13/20 09/13/20 03:45 04:00 04:15 Temperature Pulse Rate 54 L 55 L 51 L Pulse Rate [ From Monitor] Respiratory 11 L 13 10 L Rate Blood Pressure 116/72 121/73 121/72 O2 Sat by Pulse 98 99 99 Oximetry 09/13/20 09/13/20 09/13/20 04:25 04:30 04:32 Temperature Pulse Rate 60 52 L 66 Pulse Rate [ From Monitor] Respiratory 11 L Rate Blood Pressure 122/66 122/66 O2 Sat by Pulse 98 100 Oximetry 09/13/20 09/13/20 09/13/20 04:45 05:00 05:15 Temperature Pulse Rate 62 56 L 58 L Pulse Rate [ From Monitor] Respiratory 12 12 12 Rate Blood Pressure 117/74 117/73 116/70 O2 Sat by Pulse 100 100 100 Oximetry 09/13/20 09/13/20 09/13/20 05:30 05:45 06:00 Temperature Pulse Rate 52 L 50 L 60 Pulse Rate [ From Monitor] Respiratory 12 12 12 Rate Blood Pressure 123/73 133/82 125/79 O2 Sat by Pulse 100 100 100 Oximetry 09/13/20 09/13/20 09/13/20 06:15 06:30 06:45 Temperature Pulse Rate 53 L 54 L 56 L Pulse Rate [ From Monitor] Respiratory 12 12 12 Rate Blood Pressure 129/80 130/84 126/78 O2 Sat by Pulse 100 100 100 Oximetry 09/13/20 09/13/20 09/13/20 07:00 07:15 07:24 Temperature 98.9 F Pulse Rate 55 L 55 L Pulse Rate [ From Monitor] Respiratory 14 12 Rate Blood Pressure 136/86 144/90 O2 Sat by Pulse 100 100 Oximetry 09/13/20 09/13/20 09/13/20 07:30 07:45 07:58 Temperature Pulse Rate 55 L 54 L 53 L Pulse Rate [ From Monitor] Respiratory 12 15 13 Rate Blood Pressure 121/81 134/85 129/80 O2 Sat by Pulse 97 100 Oximetry 09/13/20 09/13/20 09/13/20 08:00 08:15 08:30 Temperature Pulse Rate 60 53 L 52 L Pulse Rate [ 59 L From Monitor] Respiratory 16 14 13 Rate Blood Pressure 131/74 136/79 126/75 O2 Sat by Pulse 97 97 98 Oximetry 09/13/20 09/13/20 09/13/20 08:45 09:00 09:15 Temperature Pulse Rate 54 L 58 L 54 L Pulse Rate [ From Monitor] Respiratory 14 13 13 Rate Blood Pressure 130/65 127/83 127/79 O2 Sat by Pulse 97 99 99 Oximetry 09/13/20 09/13/20 09/13/20 09:30 09:45 10:00 Temperature Pulse Rate 54 L 62 52 L Pulse Rate [ From Monitor] Respiratory 13 12 13 Rate Blood Pressure 128/76 127/76 127/78 O2 Sat by Pulse 98 99 98 Oximetry 09/13/20 09/13/20 09/13/20 10:15 11:18 11:46 Temperature 98.3 F Pulse Rate 57 L 63 Pulse Rate [ From Monitor] Respiratory 13 13 Rate Blood Pressure 132/83 127/77 O2 Sat by Pulse 98 98 Oximetry - Labs CBC & Chem 7: 09/13/20 04:45 09/14/20 04:37 Labs: Abnormal lab results 09/12/20 09/12/20 09/13/20 Range/Units 13:28 16:41 03:38 RBC (3.65-5.03) M/mm3 Hgb (10.1-14.3) gm/dl Hct (30.3-42.9) % Seg Neutrophils % (40.0-70.0) % Seg Neutrophils # (1.8-7.7) K/mm3 ABG Hemoglobin 10.3 L (12.0-17.5) ABG Chloride 111.0 H (98-107) mmol/L ABG Glucose 115 H (65-95) mg/dL Carboxyhemoglobin 0.3 L (0.5-1.5) Sodium (137-145) mmol/L Chloride (98-107) mmol/L BUN (7-17) mg/dL Glucose (65-100) mg/dL POC Glucose 114 H (70-105) mg/dL Calcium (8.4-10.2) mg/dL Troponin T 0.160 H* (0.00-0.029) ng/mL Arterial Blood Glucose 115 H (65-95) mg/dL Arterial Blood Ionized Calcium 4.5 L (4.6-5.3) mg/dL 09/13/20 09/13/20 09/13/20 Range/Units 04:45 04:45 04:47 RBC 3.20 L (3.65-5.03) M/mm3 Hgb 9.9 L (10.1-14.3) gm/dl Hct 29.7 L (30.3-42.9) % Seg Neutrophils % 76.7 H (40.0-70.0) % Seg Neutrophils # 8.5 H (1.8-7.7) K/mm3 ABG Hemoglobin (12.0-17.5) ABG Chloride (98-107) mmol/L ABG Glucose (65-95) mg/dL Carboxyhemoglobin (0.5-1.5) Sodium 146 H (137-145) mmol/L Chloride 111.5 H (98-107) mmol/L BUN 19 H (7-17) mg/dL Glucose 112 H (65-100) mg/dL POC Glucose 112 H (70-105) mg/dL Calcium 8.0 L (8.4-10.2) mg/dL Troponin T (0.00-0.029) ng/mL Arterial Blood Glucose (65-95) mg/dL Arterial Blood Ionized Calcium (4.6-5.3) mg/dL 09/13/20 Range/Units 11:30 RBC (3.65-5.03) M/mm3 Hgb (10.1-14.3) gm/dl Hct (30.3-42.9) % Seg Neutrophils % (40.0-70.0) % Seg Neutrophils # (1.8-7.7) K/mm3 ABG Hemoglobin (12.0-17.5) ABG Chloride (98-107) mmol/L ABG Glucose (65-95) mg/dL Carboxyhemoglobin (0.5-1.5) Sodium (137-145) mmol/L Chloride (98-107) mmol/L BUN (7-17) mg/dL Glucose (65-100) mg/dL POC Glucose 120 H (70-105) mg/dL Calcium (8.4-10.2) mg/dL Troponin T (0.00-0.029) ng/mL Arterial Blood Glucose (65-95) mg/dL Arterial Blood Ionized Calcium (4.6-5.3) mg/dL HEART Score - HEART Score Troponin: Troponin T 0.160 ng/mL (0.00-0.029) H* 09/12/20 13:28
[2020-09-13] MEDS ORDERED: D5W/0.9% NACL 1,000 ML IV SCH (14:00)
[2020-09-13] MEDS: DEXTROSE 5% IN WATER 1,000 ML IV SCH (19:38)
[2020-09-14] MEDS: AMPICILLIN/SULBACTA 1.5GM/50ML 1.5 GM/50 ML BAG IV SCH ×2 (03:55→22:13)
--- NOTE | 2020-09-14 04:04 | XRay Report ---
CHEST - 1 VIEW INDICATION: follow up respiratory failure COMPARISON: Yesterday FINDINGS: SUPPORT DEVICES: NG tube tip just above the level of the isabella should be retracted 3 cm. Otherwise stable support device positioning. HEART: Stable cardiomediastinal silhouette. LUNGS/PLEURA: Mild patchy left basilar airspace disease with otherwise clear lungs. ADDITIONAL FINDINGS: None. IMPRESSION: 1. Retract the NG tube 3 cm. 2. Mild patchy left basilar airspace disease. Signer Name: Ashish Tony MD Signed: 09/14/2020 4:00 AM Workstation Name: [id number]
[2020-09-14 06:29] LABS: Blood Urea Nitrogen 13 mg/dL (7-17); Calcium 7.8 mg/dL (8.4-10.2); Hemolysis Index 124
[2020-09-14 06:42] LABS: BUN/Creatinine Ratio 19
[2020-09-14] MEDS: HEPARIN 5,000 UNIT/1 ML VIAL SUB-Q SCH ×2 (09:38→22:12)
[2020-09-14] MEDS: SERTRALINE 50 MG TAB PO SCH (09:38)
[2020-09-14] MEDS: SENNOSIDES/DOCUSATE SODIUM 8.6/50 MG TAB FEEDTUBE SCH (09:39)
[2020-09-14] MEDS: FAMOTIDINE 20 MG TAB PO SCH (09:39)
--- NOTE | 2020-09-14 11:05 | Progress Note ---
Assessment and Plan Clinically improving. QT prolongation has also further improved -optimize electrolytes and recheck EKG today. Would initiate low-dose beta-ab when blood pressure can tolerate it. Patient in stable rhythm. Echo re-reviewed. Possible extubation today? We will follow along. - Patient Problems (1) Cardiac arrest Current Visit: Yes Status: Acute (2) Cardiac arrest with successful resuscitation Current Visit: Yes Status: Acute (3) Cocaine abuse Current Visit: Yes Status: Acute (4) Marijuana use Current Visit: Yes Status: Acute (5) Metabolic acidosis Current Visit: Yes Status: Acute (6) Renal insufficiency Current Visit: Yes Status: Acute (7) Shock circulatory Current Visit: Yes Status: Acute (8) Toxic metabolic encephalopathy Current Visit: Yes Status: Acute Subjective Date of service: 09/14/20 Principal diagnosis: Acute hypoxemic resp failure; Cardiac arrest with ROSC; Pneumonia; ANGELICA Interval history: No acute events noted overnight. Objective Vital Signs Temp Pulse Pulse Resp BP Pulse Ox 09/14/20 10:30 78 18 140/82 100 09/14/20 10:00 79 17 136/81 99 09/14/20 09:30 92 H 25 H 147/82 99 09/14/20 09:00 73 15 133/80 99 09/14/20 08:30 60 13 139/77 99 09/14/20 08:20 75 20 147/82 99 09/14/20 08:00 84 13 142/80 98 09/14/20 07:36 98.5 F 09/14/20 07:30 72 14 131/85 99 09/14/20 07:00 67 14 138/87 100 09/14/20 06:30 72 12 129/82 100 09/14/20 06:00 73 13 126/83 100 09/14/20 05:30 78 20 131/82 100 09/14/20 05:00 71 12 126/83 100 09/14/20 04:30 68 13 131/82 100 09/14/20 04:08 68 09/14/20 04:00 67 12 129/85 98 09/14/20 03:30 69 16 135/86 97 09/14/20 03:00 59 L 12 125/81 97 09/14/20 02:30 55 L 12 124/71 99 09/14/20 02:00 59 L 15 124/71 99 09/14/20 01:30 55 L 12 116/74 99 09/14/20 01:00 69 13 121/66 99 09/14/20 00:46 73 12 124/74 99 09/14/20 00:30 74 12 124/74 99 09/14/20 00:16 72 13 134/81 99 09/14/20 00:00 98.6 F 76 15 134/81 98 09/13/20 23:46 78 13 144/100 99 09/13/20 23:30 83 17 144/100 97 09/13/20 23:16 73 12 140/89 100 09/13/20 23:00 91 H 18 140/89 96 09/13/20 22:46 72 11 L 99 09/13/20 22:30 65 12 139/92 100 09/13/20 22:15 61 11 L 139/92 99 09/13/20 22:00 58 L 12 139/92 98 09/13/20 21:45 57 L 17 143/87 97 09/13/20 21:30 55 L 12 143/87 98 09/13/20 21:15 53 L 14 129/79 98 09/13/20 21:11 57 L 14 129/79 98 09/13/20 21:00 60 16 129/79 98 09/13/20 20:45 54 L 12 117/67 100 09/13/20 20:30 60 13 124/69 100 09/13/20 20:27 53 L 09/13/20 20:15 57 L 12 117/73 100 09/13/20 20:00 98.2 F 86 12 143/87 98 09/13/20 19:45 62 13 121/68 99 09/13/20 19:30 58 L 12 124/69 99 09/13/20 19:15 59 L 16 110/68 99 09/13/20 19:00 62 13 121/74 99 09/13/20 18:45 59 L 12 120/69 09/13/20 18:30 70 13 119/73 09/13/20 18:15 59 L 13 127/72 09/13/20 18:00 54 L 16 134/76 09/13/20 17:45 65 12 129/72 09/13/20 17:30 55 L 17 136/77 09/13/20 17:15 77 14 143/95 100 09/13/20 17:00 55 L 13 129/82 98 09/13/20 16:45 60 13 134/75 98 09/13/20 16:30 60 14 137/79 98 09/13/20 16:15 57 L 14 134/88 98 09/13/20 16:05 56 L 26 H 122/69 97 09/13/20 16:00 98.6 F 53 L 51 L 13 131/88 97 09/13/20 15:45 56 L 15 141/88 09/13/20 15:30 56 L 16 130/85 96 09/13/20 15:15 52 L 15 138/85 95 09/13/20 15:00 51 L 14 133/79 95 09/13/20 14:45 55 L 14 140/70 95 09/13/20 14:30 52 L 14 131/82 97 09/13/20 14:15 52 L 13 131/78 97 09/13/20 14:00 55 L 13 131/78 94 09/13/20 13:45 56 L 15 126/65 97 09/13/20 13:30 56 L 14 122/69 97 09/13/20 13:15 56 L 15 130/83 96 09/13/20 13:01 55 L 15 129/96 97 09/13/20 12:45 53 L 14 134/83 97 09/13/20 12:30 56 L 13 142/74 96 09/13/20 12:15 56 L 16 140/84 94 09/13/20 12:00 52 L 53 L 16 132/85 96 09/13/20 11:46 98.3 F 09/13/20 11:45 64 25 H 138/97 09/13/20 11:30 50 L 12 122/74 97 09/13/20 11:18 63 13 127/77 98 09/13/20 11:15 57 L 11 L 124/82 98 - Physical Examination General: Other (Patient intubated and sedated) HEENT: Positive: Normocephaly Neck: Positive: trachea midline Neuro: Positive: Other (unble to assess) Abdomen: Positive: Soft, Active Bowel Sounds Skin: Negative: Rash, Suspicious Lesions Extremities: Present: upper extr. pulses, lower extr. pulses, +1 Edema - Labs and Meds Comprehensive Metabolic Panel 09/14/20 Range/Units 04:37 Sodium 140 (137-145) mmol/L Potassium 4.1 (3.6-5.0) mmol/L Chloride 105.7 (98-107) mmol/L Carbon Dioxide 24 (22-30) mmol/L BUN 13 (7-17) mg/dL Creatinine 0.7 (0.6-1.2) mg/dL Glucose 110 H (65-100) mg/dL Calcium 7.8 L (8.4-10.2) mg/dL - Imaging and Cardiology EKG: report reviewed, image reviewed Echo: report reviewed - EKG Sinus rhythms and dysrhythmias: sinus rhythm Repolarization changes or abnormalities: Q-T interval prolongation - Allied health notes Allied health notes reviewed: nursing
--- NOTE | 2020-09-14 12:02 | Progress Note ---
Assessment and Plan Assessment and Plan # Cardiac arrest -s/p cardiac resucitation -intubated off sedation today -CT brain is unremarkable -UDS positive for Cocain and Marihjuana -Patient treated" with ACLS protocol with eventual return of perfusing cardiac rhythm. -EEG is remarkable forslight slowing -MRI brain is showed none specific both parieto-occipital changes -- need repeat MRI with Gd # Anoxic brain injury -CT head is unremarkable - neuro check move all as per nurse -pt. is intubated and sedated on Propofol and Fentanyl -Suggest EEG off sedation if possible -Brain MRI noted # Sepsis -Sepsis protocol: CBC, CMP, chest x-ray, IV antibiotic therapy, IV fluid resuscitation therapy, monitor urine output every shift, IV pressor support, serial lactic acid level, maintain mean arterial pressure greater than equal 65, blood culture. -Echo is unremarkable # Acute hypoxemic respiratory failure -Patient intubated and ambulatory support, -wean vent as tolerated, -critical care team consulted in ED, - spontaneous breathing trial daily, -daily ABG, chest x-ray, # Metabolic acidosis -IV fluid resuscitation therapy, IV bicarbonate therapy, supportive care, BMP, repeat BMP in a.m. # Toxic metabolic encephalopathy -CT head, neuro check, treat sepsis, supportive care, IV fluid resuscitation therapy, serial lactic acid level. # Aspiration pneumonia Pneumonia protocol: Chest x-ray, CBC, CMP, IV antibiotic therapy, wean vent as tolerated. # DVT prophylaxis -SCD to bilateral lower extremities while in bed, prophylactic anticoagulation # Advance care planning -Disease education conducted, care plan discussed, diagnosis discussed, prognosis discussed, [x] Data Review and interpretation [x] Patient assessment and monitoring of vital signs [x] Documentation [x] Medication orders and management PLAN 1- No sedation and extubate when stable 2- Repeat MRI brain with gd 3- Prognosis is improving 4- Avoid recreational drug and alcohol to cancell pt. will sign off Subjective Date of service: 09/14/20 Principal diagnosis: Acute hypoxemic resp failure; Cardiac arrest with ROSC; Pneumonia; ANGELICA Interval history: still intubated off sedation today MRI brain is done result suggest meningeal enhancment parieto occipital Bilateral vs PRESS ? EEG is unremarkable echo is unremarkable she is alert interactive move all limbs Objective - Vital Sign Vital Signs - 12hr 09/14/20 09/14/20 09/14/20 00:00 00:16 00:30 Temperature 98.6 F Pulse Rate 76 72 74 Respiratory 15 13 12 Rate Blood Pressure 134/81 134/81 124/74 O2 Sat by Pulse 98 99 99 Oximetry 09/14/20 09/14/20 09/14/20 00:46 01:00 01:30 Temperature Pulse Rate 73 69 55 L Respiratory 12 13 12 Rate Blood Pressure 124/74 121/66 116/74 O2 Sat by Pulse 99 99 99 Oximetry 09/14/20 09/14/20 09/14/20 02:00 02:30 03:00 Temperature Pulse Rate 59 L 55 L 59 L Respiratory 15 12 12 Rate Blood Pressure 124/71 124/71 125/81 O2 Sat by Pulse 99 99 97 Oximetry 09/14/20 09/14/20 09/14/20 03:30 04:00 04:08 Temperature Pulse Rate 69 67 68 Respiratory 16 12 Rate Blood Pressure 135/86 129/85 O2 Sat by Pulse 97 98 Oximetry 09/14/20 09/14/20 09/14/20 04:30 05:00 05:30 Temperature Pulse Rate 68 71 78 Respiratory 13 12 20 Rate Blood Pressure 131/82 126/83 131/82 O2 Sat by Pulse 100 100 100 Oximetry 09/14/20 09/14/20 09/14/20 06:00 06:30 07:00 Temperature Pulse Rate 73 72 67 Respiratory 13 12 14 Rate Blood Pressure 126/83 129/82 138/87 O2 Sat by Pulse 100 100 100 Oximetry 09/14/20 09/14/20 09/14/20 07:30 07:36 08:00 Temperature 98.5 F Pulse Rate 72 84 Respiratory 14 13 Rate Blood Pressure 131/85 142/80 O2 Sat by Pulse 99 98 Oximetry 09/14/20 09/14/20 09/14/20 08:15 08:20 08:30 Temperature Pulse Rate 75 60 Respiratory 20 13 Rate Blood Pressure 147/82 139/77 O2 Sat by Pulse 95 99 99 Oximetry 09/14/20 09/14/20 09/14/20 09:00 09:30 10:00 Temperature Pulse Rate 73 92 H 79 Respiratory 15 25 H 17 Rate Blood Pressure 133/80 147/82 136/81 O2 Sat by Pulse 99 99 99 Oximetry 09/14/20 09/14/20 10:30 11:45 Temperature 98.1 F Pulse Rate 78 Respiratory 18 Rate Blood Pressure 140/82 O2 Sat by Pulse 100 Oximetry - General Apperance Constitutional: comfortable - EENT EENT: PERRL, mucous membranes moist - Respiratory Respiratory: chest non-tender, lungs clear - Cardiovascular Cardiovascular: regular rate, normal S1, normal S2 Extremities: no peripheral edema bilat, no clubbing, cyanosis - Gastrointestinal Gastrointestinal: normoactive bowel sounds - Integumentary Integumentary: normal - Neurologic Cranial nerve examination: intact Speech examination: other (intubated) Detailed motor examination: full strength in all randy - Laboratory Findings CBC and BMP: 09/13/20 04:45 09/14/20 04:37 Abnormal Lab Findings: Abnormal Labs 09/09/20 09/09/20 09/09/20 10:42 10:42 10:42 WBC RBC Hgb Hct MCV 100 H MCHC Lymph % (Auto) Lymph # (Auto) Seg Neutrophils % Seg Neuts % (Manual) 33.0 L Lymphocytes % (Manual) 41.0 H Nucleated RBC % 1.0 H Seg Neutrophils # PT 19.2 H INR 1.57 H APTT 42.5 H D-Dimer ABG pH POC ABG pCO2 POC ABG pO2 ABG pO2 ABG HCO3 ABG Base Excess ABG Hemoglobin ABG Oxyhemoglobin ABG Potassium ABG Chloride ABG Glucose Oxyhemoglobin Carboxyhemoglobin Sodium Potassium 5.4 H Chloride Carbon Dioxide 17 L BUN 25 H Creatinine 2.5 H Glucose 205 H POC Glucose Lactic Acid Calcium Magnesium Ferritin AST 60 H ALT Lactate Dehydrogenase Total Creatine Kinase Troponin T 0.092 H C-Reactive Protein Total Protein 5.3 L Albumin 3.0 L HDL Cholesterol Arterial Blood Glucose Arterial Blood Ionized Calcium Urine WBC (Auto) Salicylates Acetaminophen 09/09/20 09/09/20 09/09/20 10:42 10:42 10:42 WBC RBC Hgb Hct MCV MCHC Lymph % (Auto) Lymph # (Auto) Seg Neutrophils % Seg Neuts % (Manual) Lymphocytes % (Manual) Nucleated RBC % Seg Neutrophils # PT INR APTT D-Dimer ABG pH POC ABG pCO2 POC ABG pO2 ABG pO2 ABG HCO3 ABG Base Excess ABG Hemoglobin ABG Oxyhemoglobin ABG Potassium ABG Chloride ABG Glucose Oxyhemoglobin Carboxyhemoglobin Sodium Potassium Chloride Carbon Dioxide BUN Creatinine Glucose POC Glucose Lactic Acid 16.60 H* Calcium Magnesium 3.30 H Ferritin AST ALT Lactate Dehydrogenase Total Creatine Kinase 166 H Troponin T C-Reactive Protein Total Protein Albumin HDL Cholesterol Arterial Blood Glucose Arterial Blood Ionized Calcium Urine WBC (Auto) Salicylates Acetaminophen 09/09/20 09/09/20 09/09/20 10:42 10:42 11:30 WBC RBC Hgb Hct MCV MCHC Lymph % (Auto) Lymph # (Auto) Seg Neutrophils % Seg Neuts % (Manual) Lymphocytes % (Manual) Nucleated RBC % Seg Neutrophils # PT INR APTT D-Dimer ABG pH 6.919 L* POC ABG pCO2 POC ABG pO2 ABG pO2 127.2 H ABG HCO3 10.3 L ABG Base Excess -21.7 L ABG Hemoglobin 10.8 L ABG Oxyhemoglobin ABG Potassium ABG Chloride ABG Glucose Oxyhemoglobin 94.2 L Carboxyhemoglobin Sodium Potassium Chloride Carbon Dioxide BUN Creatinine Glucose POC Glucose Lactic Acid Calcium Magnesium Ferritin AST ALT Lactate Dehydrogenase Total Creatine Kinase Troponin T C-Reactive Protein Total Protein Albumin HDL Cholesterol Arterial Blood Glucose Arterial Blood Ionized Calcium Urine WBC (Auto) Salicylates < 0.3 L Acetaminophen 5.0 L 09/09/20 09/09/20 09/09/20 14:31 14:31 14:31 WBC RBC Hgb Hct MCV MCHC Lymph % (Auto) Lymph # (Auto) Seg Neutrophils % Seg Neuts % (Manual) Lymphocytes % (Manual) Nucleated RBC % Seg Neutrophils # PT INR APTT D-Dimer 5936.95 H ABG pH POC ABG pCO2 POC ABG pO2 ABG pO2 ABG HCO3 ABG Base Excess ABG Hemoglobin ABG Oxyhemoglobin ABG Potassium ABG Chloride ABG Glucose Oxyhemoglobin Carboxyhemoglobin Sodium Potassium Chloride Carbon Dioxide BUN Creatinine Glucose POC Glucose Lactic Acid Calcium Magnesium Ferritin AST ALT Lactate Dehydrogenase 513 H Total Creatine Kinase Troponin T 0.140 H* D C-Reactive Protein 3.80 H Total Protein Albumin HDL Cholesterol 31 L Arterial Blood Glucose Arterial Blood Ionized Calcium Urine WBC (Auto) Salicylates Acetaminophen 09/09/20 09/09/20 09/09/20 14:31 14:31 16:39 WBC RBC Hgb Hct MCV MCHC Lymph % (Auto) Lymph # (Auto) Seg Neutrophils % Seg Neuts % (Manual) Lymphocytes % (Manual) Nucleated RBC % Seg Neutrophils # PT INR APTT D-Dimer ABG pH POC ABG pCO2 POC ABG pO2 ABG pO2 ABG HCO3 ABG Base Excess ABG Hemoglobin ABG Oxyhemoglobin ABG Potassium ABG Chloride ABG Glucose Oxyhemoglobin Carboxyhemoglobin Sodium Potassium Chloride Carbon Dioxide BUN Creatinine Glucose POC Glucose Lactic Acid 7.20 H* Calcium Magnesium Ferritin 1995.0 H AST ALT Lactate Dehydrogenase Total Creatine Kinase Troponin T 0.174 H* D C-Reactive Protein Total Protein Albumin HDL Cholesterol Arterial Blood Glucose Arterial Blood Ionized Calcium Urine WBC (Auto) Salicylates Acetaminophen 09/09/20 09/09/20 09/10/20 17:05 Unknown 04:19 WBC RBC Hgb Hct MCV MCHC Lymph % (Auto) Lymph # (Auto) Seg Neutrophils % Seg Neuts % (Manual) Lymphocytes % (Manual) Nucleated RBC % Seg Neutrophils # PT INR APTT D-Dimer ABG pH 7.278 L 7.497 H POC ABG pCO2 25.0 L POC ABG pO2 ABG pO2 143.7 H ABG HCO3 17.9 L ABG Base Excess -8.3 L ABG Hemoglobin 11.6 L ABG Oxyhemoglobin ABG Potassium ABG Chloride 112.0 H ABG Glucose 113 H Oxyhemoglobin Carboxyhemoglobin 0.3 L Sodium Potassium Chloride Carbon Dioxide BUN Creatinine Glucose POC Glucose Lactic Acid Calcium Magnesium Ferritin AST ALT Lactate Dehydrogenase Total Creatine Kinase Troponin T C-Reactive Protein Total Protein Albumin HDL Cholesterol Arterial Blood Glucose 113 H Arterial Blood Ionized Calcium Urine WBC (Auto) 7.0 H Salicylates Acetaminophen 09/10/20 09/10/20 09/10/20 04:42 04:42 04:42 WBC RBC 3.64 L Hgb Hct MCV MCHC 35 H Lymph % (Auto) 11.0 L Lymph # (Auto) 0.9 L Seg Neutrophils % 82.7 H Seg Neuts % (Manual) Lymphocytes % (Manual) Nucleated RBC % Seg Neutrophils # PT INR APTT D-Dimer ABG pH POC ABG pCO2 POC ABG pO2 ABG pO2 ABG HCO3 ABG Base Excess ABG Hemoglobin ABG Oxyhemoglobin ABG Potassium ABG Chloride ABG Glucose Oxyhemoglobin Carboxyhemoglobin Sodium Potassium 3.5 L D Chloride 108.4 H Carbon Dioxide BUN 33 H Creatinine 1.5 H Glucose 107 H POC Glucose Lactic Acid 2.20 H* Calcium 7.2 L D Magnesium Ferritin AST 220 H ALT 117 H Lactate Dehydrogenase Total Creatine Kinase Troponin T C-Reactive Protein Total Protein 5.5 L Albumin 3.0 L HDL Cholesterol Arterial Blood Glucose Arterial Blood Ionized Calcium Urine WBC (Auto) Salicylates Acetaminophen 09/10/20 09/11/20 09/11/20 10:34 00:46 03:08 WBC RBC Hgb Hct MCV MCHC Lymph % (Auto) Lymph # (Auto) Seg Neutrophils % Seg Neuts % (Manual) Lymphocytes % (Manual) Nucleated RBC % Seg Neutrophils # PT INR APTT D-Dimer ABG pH 7.521 H POC ABG pCO2 25.2 L POC ABG pO2 137.4 H ABG pO2 ABG HCO3 ABG Base Excess ABG Hemoglobin 10.2 L ABG Oxyhemoglobin 98.1 H ABG Potassium 3.1 L ABG Chloride 116.0 H ABG Glucose 123 H Oxyhemoglobin Carboxyhemoglobin Sodium Potassium Chloride Carbon Dioxide BUN Creatinine Glucose POC Glucose 124 H Lactic Acid 2.40 H* Calcium Magnesium Ferritin AST ALT Lactate Dehydrogenase Total Creatine Kinase Troponin T C-Reactive Protein Total Protein Albumin HDL Cholesterol Arterial Blood Glucose 123 H Arterial Blood Ionized Calcium 4.3 L Urine WBC (Auto) Salicylates Acetaminophen 09/11/20 09/11/20 09/11/20 10:04 10:04 12:00 WBC 16.7 H RBC 3.33 L Hgb Hct MCV MCHC Lymph % (Auto) Lymph # (Auto) Seg Neutrophils % Seg Neuts % (Manual) Lymphocytes % (Manual) Nucleated RBC % Seg Neutrophils # PT INR APTT D-Dimer ABG pH POC ABG pCO2 POC ABG pO2 ABG pO2 ABG HCO3 ABG Base Excess ABG Hemoglobin ABG Oxyhemoglobin ABG Potassium ABG Chloride ABG Glucose Oxyhemoglobin Carboxyhemoglobin Sodium 147 H Potassium 3.3 L Chloride 115.6 H Carbon Dioxide BUN 24 H Creatinine Glucose 110 H POC Glucose 122 H Lactic Acid Calcium 8.1 L Magnesium Ferritin AST ALT Lactate Dehydrogenase Total Creatine Kinase Troponin T C-Reactive Protein Total Protein Albumin HDL Cholesterol Arterial Blood Glucose Arterial Blood Ionized Calcium Urine WBC (Auto) Salicylates Acetaminophen 09/11/20 09/11/20 09/11/20 17:20 17:48 23:23 WBC RBC Hgb Hct MCV MCHC Lymph % (Auto) Lymph # (Auto) Seg Neutrophils % Seg Neuts % (Manual) Lymphocytes % (Manual) Nucleated RBC % Seg Neutrophils # PT INR APTT D-Dimer ABG pH 7.295 L POC ABG pCO2 POC ABG pO2 ABG pO2 ABG HCO3 ABG Base Excess ABG Hemoglobin 11.6 L ABG Oxyhemoglobin ABG Potassium ABG Chloride 113.0 H ABG Glucose 104 H Oxyhemoglobin Carboxyhemoglobin 0.1 L Sodium Potassium Chloride Carbon Dioxide BUN Creatinine Glucose POC Glucose 117 H 111 H Lactic Acid Calcium Magnesium Ferritin AST ALT Lactate Dehydrogenase Total Creatine Kinase Troponin T C-Reactive Protein Total Protein Albumin HDL Cholesterol Arterial Blood Glucose 104 H Arterial Blood Ionized Calcium Urine WBC (Auto) Salicylates Acetaminophen 09/11/20 09/12/20 09/12/20 Unknown 01:44 02:25 WBC RBC Hgb Hct MCV MCHC Lymph % (Auto) Lymph # (Auto) Seg Neutrophils % Seg Neuts % (Manual) Lymphocytes % (Manual) Nucleated RBC % Seg Neutrophils # PT INR APTT D-Dimer ABG pH POC ABG pCO2 POC ABG pO2 42.9 L 118.0 H ABG pO2 ABG HCO3 ABG Base Excess ABG Hemoglobin 9.9 L 9.9 L ABG Oxyhemoglobin 78.9 L ABG Potassium ABG Chloride 117.0 H 116.0 H ABG Glucose 112 H 114 H Oxyhemoglobin Carboxyhemoglobin 0.3 L 0.3 L Sodium Potassium Chloride Carbon Dioxide BUN Creatinine Glucose POC Glucose Lactic Acid Calcium Magnesium 2.50 H Ferritin AST ALT Lactate Dehydrogenase Total Creatine Kinase Troponin T C-Reactive Protein Total Protein Albumin HDL Cholesterol Arterial Blood Glucose 112 H 114 H Arterial Blood Ionized Calcium Urine WBC (Auto) Salicylates Acetaminophen 09/12/20 09/12/20 09/12/20 04:56 05:15 13:28 WBC RBC Hgb Hct MCV MCHC Lymph % (Auto) Lymph # (Auto) Seg Neutrophils % Seg Neuts % (Manual) Lymphocytes % (Manual) Nucleated RBC % Seg Neutrophils # PT INR APTT D-Dimer ABG pH POC ABG pCO2 POC ABG pO2 ABG pO2 ABG HCO3 ABG Base Excess ABG Hemoglobin ABG Oxyhemoglobin ABG Potassium ABG Chloride ABG Glucose Oxyhemoglobin Carboxyhemoglobin Sodium 150 H Potassium Chloride 118.1 H Carbon Dioxide BUN 22 H Creatinine Glucose 113 H POC Glucose 107 H Lactic Acid Calcium Magnesium Ferritin AST ALT Lactate Dehydrogenase Total Creatine Kinase Troponin T 0.160 H* C-Reactive Protein Total Protein Albumin HDL Cholesterol Arterial Blood Glucose Arterial Blood Ionized Calcium Urine WBC (Auto) Salicylates Acetaminophen 08/07/2809/13/20 09/13/20 16:41 03:38 04:45 WBC RBC 3.20 L Hgb 9.9 L Hct 29.7 L MCV MCHC Lymph % (Auto) Lymph # (Auto) Seg Neutrophils % 76.7 H Seg Neuts % (Manual) Lymphocytes % (Manual) Nucleated RBC % Seg Neutrophils # 8.5 H PT INR APTT D-Dimer ABG pH POC ABG pCO2 POC ABG pO2 ABG pO2 ABG HCO3 ABG Base Excess ABG Hemoglobin 10.3 L ABG Oxyhemoglobin ABG Potassium ABG Chloride 111.0 H ABG Glucose 115 H Oxyhemoglobin Carboxyhemoglobin 0.3 L Sodium Potassium Chloride Carbon Dioxide BUN Creatinine Glucose POC Glucose 114 H Lactic Acid Calcium Magnesium Ferritin AST ALT Lactate Dehydrogenase Total Creatine Kinase Troponin T C-Reactive Protein Total Protein Albumin HDL Cholesterol Arterial Blood Glucose 115 H Arterial Blood Ionized Calcium 4.5 L Urine WBC (Auto) Salicylates Acetaminophen 09/13/20 09/13/20 09/13/20 04:45 04:47 11:30 WBC RBC Hgb Hct MCV MCHC Lymph % (Auto) Lymph # (Auto) Seg Neutrophils % Seg Neuts % (Manual) Lymphocytes % (Manual) Nucleated RBC % Seg Neutrophils # PT INR APTT D-Dimer ABG pH POC ABG pCO2 POC ABG pO2 ABG pO2 ABG HCO3 ABG Base Excess ABG Hemoglobin ABG Oxyhemoglobin ABG Potassium ABG Chloride ABG Glucose Oxyhemoglobin Carboxyhemoglobin Sodium 146 H Potassium Chloride 111.5 H Carbon Dioxide BUN 19 H Creatinine Glucose 112 H POC Glucose 112 H 120 H Lactic Acid Calcium 8.0 L Magnesium Ferritin AST ALT Lactate Dehydrogenase Total Creatine Kinase Troponin T C-Reactive Protein Total Protein Albumin HDL Cholesterol Arterial Blood Glucose Arterial Blood Ionized Calcium Urine WBC (Auto) Salicylates Acetaminophen 09/13/20 09/13/20 09/14/20 15:50 23:55 04:37 WBC RBC Hgb Hct MCV MCHC Lymph % (Auto) Lymph # (Auto) Seg Neutrophils % Seg Neuts % (Manual) Lymphocytes % (Manual) Nucleated RBC % Seg Neutrophils # PT INR APTT D-Dimer ABG pH POC ABG pCO2 POC ABG pO2 ABG pO2 ABG HCO3 ABG Base Excess ABG Hemoglobin 10.8 L ABG Oxyhemoglobin ABG Potassium ABG Chloride ABG Glucose Oxyhemoglobin Carboxyhemoglobin 0.2 L Sodium Potassium Chloride Carbon Dioxide BUN Creatinine Glucose 110 H POC Glucose 117 H Lactic Acid Calcium 7.8 L Magnesium Ferritin AST ALT Lactate Dehydrogenase Total Creatine Kinase Troponin T C-Reactive Protein Total Protein Albumin HDL Cholesterol Arterial Blood Glucose Arterial Blood Ionized Calcium Urine WBC (Auto) Salicylates Acetaminophen 09/14/20 11:30 WBC RBC Hgb Hct MCV MCHC Lymph % (Auto) Lymph # (Auto) Seg Neutrophils % Seg Neuts % (Manual) Lymphocytes % (Manual) Nucleated RBC % Seg Neutrophils # PT INR APTT D-Dimer ABG pH POC ABG pCO2 POC ABG pO2 ABG pO2 ABG HCO3 ABG Base Excess ABG Hemoglobin ABG Oxyhemoglobin ABG Potassium ABG Chloride ABG Glucose Oxyhemoglobin Carboxyhemoglobin Sodium Potassium Chloride Carbon Dioxide BUN Creatinine Glucose POC Glucose 107 H Lactic Acid Calcium Magnesium Ferritin AST ALT Lactate Dehydrogenase Total Creatine Kinase Troponin T C-Reactive Protein Total Protein Albumin HDL Cholesterol Arterial Blood Glucose Arterial Blood Ionized Calcium Urine WBC (Auto) Salicylates Acetaminophen
--- NOTE | 2020-09-14 13:28 | Progress Note ---
Assessment and Plan 25 YO Female with Asthma, morbid Obesity was bought to ER unresponsive. As per fianc the patient was in her usual state of health overnight while drinking alcohol with concomitant ingestion of ecstasy. Patient was found to be unresponsive in cardiac arrest, EMS was notified, Patient was intubated in the field. Patient initiated on ACLS protocol and subsequently transported to [facility] for further care and evaluation. CXR showed infiltrates, elevated troponin, UDS positive for cocaine/marijuana. Patient admitted to ICU and initiated on sepsis protocol. A/P --Severe Sepsis with shock likely from aspiration PNA cont abx, follow Cx Status post pressor support -- Acute hypoxemic respiratory failure Patient intubated in the field, she self extubated her yesterday -- Metabolic acidosis, resolved likely due to effect from cardiac arrest Status post IV fluid resuscitation therapy, supportive care, monitor lactic acid - trended down -- Toxic metabolic encephalopathy UDS +ve for cocaine/marijuana CT head/MRI brain without any acute findings --S/P Cardiac arrest Patient treated" with ACLS protocol with eventual return of perfusion cardiac rhythm. Cardiology following, 2D echo with preserved EF -- Anoxic brain injury, suspected CT head and MRI brain w/o any acute process follow clinically, neurology following -- Aspiration pneumonia Pneumonia protocol: Chest x-ray, IV antibiotic therapy, supplemental O2 as needed ruled out for COVID with -ve test --Elevated troponin ordered 2d echo, elevated likely from cardiac arrest cardiac consult -- DVT prophylaxis SCD to bilateral lower extremities while in bed, prophylactic anticoagulation --Advance care planning Full code status Daily clinical course: 09/10/20: follow pending COVID test, CC consulted, will follow clinically and wean off from vent and pressor as tolerated. neuro consult. cont iv fluid hydration 09/11/20: negative for covid, cont abx for aspiration PNA. Patient remains intubated, neurology consulted and recommended MRI of the brain. Continue supportive care. Follow BMP for hyponatremia, continue IV fluid hydration with free water with tube feeding. 09/12/20: Cough present, MRI brain without any acute process. Neurology recommending EEG when off sedation. Continue empiric antibiotic for aspiration pneumonia, follow clinically wean off from sedation and ventilator support as tolerated. Continue tube feeding, free water and hypotonic fluid for hypernatremia. 09/13/20: Patient clinically stable, off sedation since this morning. Plan for extubation today if tolerates. Continue to provide supportive care. Sodium level and potassium level normalized. Follow BMP. Continue empiric antibiotics for aspiration pneumonia. 09/14: patient self extubated herself, placed on Ventimask, off sedation and off pressors. Cont to follow Subjective Date of service: 09/14/20 Principal diagnosis: Acute hypoxemic resp failure; Cardiac arrest with ROSC; Pneumonia; ANGELICA Interval history: Patient seen and examined patient self extubated herself noted vitals and discussed with RN at the bedside patient off levophed, off sedation Objective - Exam Narrative Exam: GENERAL: well-developed and obese -German female lying on bed no discomfort. HEENT: Normocephalic. Atraumatic. No conjunctival congestion or icterus. Patient has moist mucous membranes. NECK: Supple. Trachea midline. CHEST/LUNGS: on Ventimask, few rhonchi bilaterally HEART/CARDIOVASCULAR: Regular in rate and rhythm. S1 and S2 positive. ABDOMEN: Abdomen is soft, nontender. Patient has normal bowel sounds. SKIN: There is no rash. Warm and dry. NEURO: off Sedation, moves extremities MUSCULOSKELETAL: No joint effusion or tenderness. EXTRIMITY: No edema, no cyanosis or clubbing. PSYCH: Follow commands - Constitutional Vitals: Vital Signs - 12hr 09/14/20 09/14/20 09/14/20 01:30 02:00 02:30 Temperature Pulse Rate 55 L 59 L 55 L Respiratory 12 15 12 Rate Blood Pressure 116/74 124/71 124/71 O2 Sat by Pulse 99 99 99 Oximetry 09/14/20 09/14/20 09/14/20 03:00 03:30 04:00 Temperature Pulse Rate 59 L 69 67 Respiratory 12 16 12 Rate Blood Pressure 125/81 135/86 129/85 O2 Sat by Pulse 97 97 98 Oximetry 09/14/20 09/14/20 09/14/20 04:08 04:30 05:00 Temperature Pulse Rate 68 68 71 Respiratory 13 12 Rate Blood Pressure 131/82 126/83 O2 Sat by Pulse 100 100 Oximetry 09/14/20 09/14/20 09/14/20 05:30 06:00 06:30 Temperature Pulse Rate 78 73 72 Respiratory 20 13 12 Rate Blood Pressure 131/82 126/83 129/82 O2 Sat by Pulse 100 100 100 Oximetry 09/14/20 09/14/20 09/14/20 07:00 07:30 07:36 Temperature 98.5 F Pulse Rate 67 72 Respiratory 14 14 Rate Blood Pressure 138/87 131/85 O2 Sat by Pulse 100 99 Oximetry 09/14/20 09/14/20 09/14/20 08:00 08:15 08:20 Temperature Pulse Rate 84 75 Respiratory 13 20 Rate Blood Pressure 142/80 147/82 O2 Sat by Pulse 98 95 99 Oximetry 09/14/20 09/14/20 09/14/20 08:30 09:00 09:30 Temperature Pulse Rate 60 73 92 H Respiratory 13 15 25 H Rate Blood Pressure 139/77 133/80 147/82 O2 Sat by Pulse 99 99 99 Oximetry 09/14/20 09/14/20 09/14/20 10:00 10:30 11:45 Temperature 98.1 F Pulse Rate 79 78 Respiratory 17 18 Rate Blood Pressure 136/81 140/82 O2 Sat by Pulse 99 100 Oximetry 09/14/20 11:50 Temperature Pulse Rate 77 Respiratory 17 Rate Blood Pressure 136/76 O2 Sat by Pulse 99 Oximetry - Labs CBC & Chem 7: 09/16/20 04:17 09/16/20 04:17 Labs: Abnormal lab results 09/13/20 09/13/20 09/14/20 Range/Units 15:50 23:55 04:37 ABG Hemoglobin 10.8 L (12.0-17.5) Carboxyhemoglobin 0.2 L (0.5-1.5) Glucose 110 H (65-100) mg/dL POC Glucose 117 H (70-105) mg/dL Calcium 7.8 L (8.4-10.2) mg/dL 09/14/20 Range/Units 11:30 ABG Hemoglobin (12.0-17.5) Carboxyhemoglobin (0.5-1.5) Glucose (65-100) mg/dL POC Glucose 107 H (70-105) mg/dL Calcium (8.4-10.2) mg/dL HEART Score - HEART Score Troponin: Troponin T 0.160 ng/mL (0.00-0.029) H* 09/12/20 13:28
--- NOTE | 2020-09-14 13:31 | Electrocardiograph Report ---
[facility] Test Date: 2020-09-12 Test Time: 13:01:03 Pat Name: SUNITA DURAND Department: Room: A255 1 Gender: F Veneer Patcher: TRACIE : 1995 Requested By: PAYTON FORRESTER Order Number: [id number] Reading MD: Luana Beckwith Measurements Intervals [place] Rate: 62 P: 30 ID: [id number] QRS: 49 QRSD: 98 T: 1 QT: 540 QTc: 549 Interpretive Statements Sinus arrhythmia Prolonged QT interval T wave abnormality, consider anterior ischemia Compared to ECG 09/11/2020 15:14:30 Sinus arrhythmia has replaced normal sinus rhythm Electronically Signed On 09-14-2020 13:31:26 EDT by Luana Beckwith
--- NOTE | 2020-09-14 13:35 | Electrocardiograph Report ---
[facility] Test Date: 2020-09-13 Test Time: 12:23:36 Pat Name: SUNITA DURAND Department: Room: A255 1 Gender: F Absence Management Consultant: SHEILA : 1995 Requested By: SUSANA RIVAS Order Number: [id number] Reading MD: Luana Beckwith Measurements Intervals [place] Rate: 73 P: 239 TX: 144 QRS: 44 QRSD: 102 T: -40 QT: 454 QTc: 501 Interpretive Statements Sinus rhythm Repol abnrm suggests ischemia, diffuse leads Prolonged QT interval Compared to ECG 09/12/2020 13:01:03 No significant change Electronically Signed On 09-14-2020 13:35:03 EDT by Luana Beckwith
--- NOTE | 2020-09-14 18:21 | Progress Note ---
Assessment and Plan Acute hypoxemic respiratory failure s/p MVS Cardiac arrest with return of spontaneous circulation Bilateral pneumonia Person under investigation for COVID-19 infection Obesity Drug abuse and overdose Severe metabolic acidosis Hypercapnia Hyperkalemia Acute kidney injury, possibly on chronic Lactic acidosis Elevated serum ferritin Elevated serum troponin Oropharyngeal dysphagia -Bedside swallow evalution, if she fails then get [employer] for dysphagia screen - continue to wean supplemental oxygen for target SpO2 89-90% - continue bronchodilators with pulmonary hygiene per RT - continue accuchecks with glycemic control per SSI (While critically ill target blood glucose of 140-180 mg/dL; avoid hypoglycemia) - avoid nephrotoxins, renally dose all medications - continue to avoid benzodiazepines, reduce the possibility of delirium - monitor off antibiotics, trend temperature curve and WCC - Maintenance of sleep-wake cycle, avoid delirium - VTE prophylaxis -ROM exercises - Monitor hemodynamics and respiratory status closely - continue other care per attending / other consultants COVID SPECIFIC INTERVENTIONS - COVID-19 PCR negative CONDITION: FAIR PROGNOSIS:FAIR CODE STATUS: FULL CODE Subjective Date of service: 09/14/20 Principal diagnosis: Acute hypoxemic resp failure; Cardiac arrest with ROSC; Pneumonia; ANGELICA Interval history: Subjective Principal diagnosis: Acute hypoxemic resp failure; Cardiac arrest with ROSC; Pneumonia; ANGELICA Interval history: Patient is seen today for: Acute hypoxemic respiratory failure; Cardiac arrest with ROSC; Pneumonia; ANGELICA Seen and examined at bedside; 24hour events reviewed; nursing and respiratory care staff consulted; no adverse overnight events reported to me; resting in bed; on supplemental oxygen 35% Venturi mask. Self-extaubted No reported fevers, no vomiting Objective Vital Signs - 12hr 09/14/20 09/14/20 09/14/20 06:30 07:00 07:30 Temperature Pulse Rate 72 67 72 Respiratory 12 14 14 Rate Blood Pressure 129/82 138/87 131/85 O2 Sat by Pulse 100 100 99 Oximetry 09/14/20 09/14/20 09/14/20 07:36 08:00 08:15 Temperature 98.5 F Pulse Rate 84 Respiratory 13 Rate Blood Pressure 142/80 O2 Sat by Pulse 98 95 Oximetry 09/14/20 09/14/20 09/14/20 08:20 08:30 09:00 Temperature Pulse Rate 75 60 73 Respiratory 20 13 15 Rate Blood Pressure 147/82 139/77 133/80 O2 Sat by Pulse 99 99 99 Oximetry 09/14/20 09/14/20 09/14/20 09:30 10:00 10:30 Temperature Pulse Rate 92 H 79 78 Respiratory 25 H 17 18 Rate Blood Pressure 147/82 136/81 140/82 O2 Sat by Pulse 99 99 100 Oximetry 09/14/20 09/14/20 09/14/20 11:00 11:30 11:45 Temperature 98.1 F Pulse Rate 85 73 Respiratory 21 16 Rate Blood Pressure 142/70 136/76 O2 Sat by Pulse 99 99 Oximetry 09/14/20 09/14/20 09/14/20 11:50 12:00 12:10 Temperature Pulse Rate 77 80 Respiratory 17 17 Rate Blood Pressure 136/76 137/81 O2 Sat by Pulse 99 97 97 Oximetry 09/14/20 09/14/20 09/14/20 12:25 12:30 13:00 Temperature Pulse Rate 100 H 79 Respiratory 25 H 24 Rate Blood Pressure 148/83 152/87 O2 Sat by Pulse 98 100 Oximetry 09/14/20 09/14/20 09/14/20 13:30 14:00 14:30 Temperature Pulse Rate 85 75 80 Respiratory 13 19 20 Rate Blood Pressure 132/82 130/80 140/87 O2 Sat by Pulse 100 100 100 Oximetry 09/14/20 09/14/20 09/14/20 15:00 15:30 16:00 Temperature 98.9 F Pulse Rate 77 84 72 Respiratory 21 16 16 Rate Blood Pressure 132/77 140/77 145/98 O2 Sat by Pulse 97 96 96 Oximetry 09/14/20 09/14/20 09/14/20 16:15 16:30 17:00 Temperature Pulse Rate 77 81 Respiratory 18 18 Rate Blood Pressure 124/83 135/84 O2 Sat by Pulse 99 Oximetry Constitutional: no acute distress, asleep (but arousable) Eyes: non-icteric ENT: oropharynx moist Neck: supple, no lymphadenopathy, no JVD Effort: normal Ascultation: Bilateral: rhonchi (scant) Percussion: Bilateral: not dull Cardiovascular: regular rate and rhythm, other (S1,S2) Gastrointestinal: normoactive bowel sounds Integumentary: normal Extremities: no cyanosis, no edema, pulses normal, no ischemia or petechiae Neurologic: normal mental status, non-focal exam (moves all extremities), pupils equal and round Psychiatric: other (sleeping but rousable and appropriate when awake) CBC and BMP: 09/16/20 04:17 09/16/20 04:17 ABG, PT/INR, D-dimer: ABG ABG pH 7.347 (7.320-7.450) 09/13/20 15:50 POC ABG pCO2 41.9 mmHg (32.0-48.0) 09/13/20 15:50 ABG pCO2 39.1 mm Hg 09/09/20 17:05 POC ABG pO2 86.7 mmHg (83-108) 09/13/20 15:50 ABG pO2 143.7 mm Hg (80.0-90.0) H 09/09/20 17:05 POC ABG HCO3 22.5 09/13/20 15:50 ABG O2 Saturation 96.1 (0-100) 09/13/20 15:50 PT/INR, D-dimer PT 19.2 Sec. (12.2-14.9) H 09/09/20 10:42 INR 1.57 (0.87-1.13) H 09/09/20 10:42 D-Dimer 5936.95 ng/mlDDU (0-234) H 09/09/20 14:31 Abnormal lab findings: Abnormal Labs 09/09/20 09/09/20 09/09/20 10:42 10:42 10:42 WBC RBC Hgb Hct MCV 100 H MCHC Lymph % (Auto) Lymph # (Auto) Seg Neutrophils % Seg Neuts % (Manual) 33.0 L Lymphocytes % (Manual) 41.0 H Nucleated RBC % 1.0 H Seg Neutrophils # PT 19.2 H INR 1.57 H APTT 42.5 H D-Dimer ABG pH POC ABG pCO2 POC ABG pO2 ABG pO2 ABG HCO3 ABG Base Excess ABG Hemoglobin ABG Oxyhemoglobin ABG Potassium ABG Chloride ABG Glucose Oxyhemoglobin Carboxyhemoglobin Sodium Potassium 5.4 H Chloride Carbon Dioxide 17 L BUN 25 H Creatinine 2.5 H Glucose 205 H POC Glucose Lactic Acid Calcium Magnesium Ferritin AST 60 H ALT Lactate Dehydrogenase Total Creatine Kinase Troponin T 0.092 H C-Reactive Protein Total Protein 5.3 L Albumin 3.0 L HDL Cholesterol Arterial Blood Glucose Arterial Blood Ionized Calcium Urine WBC (Auto) Salicylates Acetaminophen 09/09/20 09/09/20 09/09/20 10:42 10:42 10:42 WBC RBC Hgb Hct MCV MCHC Lymph % (Auto) Lymph # (Auto) Seg Neutrophils % Seg Neuts % (Manual) Lymphocytes % (Manual) Nucleated RBC % Seg Neutrophils # PT INR APTT D-Dimer ABG pH POC ABG pCO2 POC ABG pO2 ABG pO2 ABG HCO3 ABG Base Excess ABG Hemoglobin ABG Oxyhemoglobin ABG Potassium ABG Chloride ABG Glucose Oxyhemoglobin Carboxyhemoglobin Sodium Potassium Chloride Carbon Dioxide BUN Creatinine Glucose POC Glucose Lactic Acid 16.60 H* Calcium Magnesium 3.30 H Ferritin AST ALT Lactate Dehydrogenase Total Creatine Kinase 166 H Troponin T C-Reactive Protein Total Protein Albumin HDL Cholesterol Arterial Blood Glucose Arterial Blood Ionized Calcium Urine WBC (Auto) Salicylates Acetaminophen 09/09/20 09/09/20 09/09/20 10:42 10:42 11:30 WBC RBC Hgb Hct MCV MCHC Lymph % (Auto) Lymph # (Auto) Seg Neutrophils % Seg Neuts % (Manual) Lymphocytes % (Manual) Nucleated RBC % Seg Neutrophils # PT INR APTT D-Dimer ABG pH 6.919 L* POC ABG pCO2 POC ABG pO2 ABG pO2 127.2 H ABG HCO3 10.3 L ABG Base Excess -21.7 L ABG Hemoglobin 10.8 L ABG Oxyhemoglobin ABG Potassium ABG Chloride ABG Glucose Oxyhemoglobin 94.2 L Carboxyhemoglobin Sodium Potassium Chloride Carbon Dioxide BUN Creatinine Glucose POC Glucose Lactic Acid Calcium Magnesium Ferritin AST ALT Lactate Dehydrogenase Total Creatine Kinase Troponin T C-Reactive Protein Total Protein Albumin HDL Cholesterol Arterial Blood Glucose Arterial Blood Ionized Calcium Urine WBC (Auto) Salicylates < 0.3 L Acetaminophen 5.0 L 09/09/20 09/09/20 09/09/20 14:31 14:31 14:31 WBC RBC Hgb Hct MCV MCHC Lymph % (Auto) Lymph # (Auto) Seg Neutrophils % Seg Neuts % (Manual) Lymphocytes % (Manual) Nucleated RBC % Seg Neutrophils # PT INR APTT D-Dimer 5936.95 H ABG pH POC ABG pCO2 POC ABG pO2 ABG pO2 ABG HCO3 ABG Base Excess ABG Hemoglobin ABG Oxyhemoglobin ABG Potassium ABG Chloride ABG Glucose Oxyhemoglobin Carboxyhemoglobin Sodium Potassium Chloride Carbon Dioxide BUN Creatinine Glucose POC Glucose Lactic Acid Calcium Magnesium Ferritin AST ALT Lactate Dehydrogenase 513 H Total Creatine Kinase Troponin T 0.140 H* D C-Reactive Protein 3.80 H Total Protein Albumin HDL Cholesterol 31 L Arterial Blood Glucose Arterial Blood Ionized Calcium Urine WBC (Auto) Salicylates Acetaminophen 09/09/20 09/09/20 09/09/20 14:31 14:31 16:39 WBC RBC Hgb Hct MCV MCHC Lymph % (Auto) Lymph # (Auto) Seg Neutrophils % Seg Neuts % (Manual) Lymphocytes % (Manual) Nucleated RBC % Seg Neutrophils # PT INR APTT D-Dimer ABG pH POC ABG pCO2 POC ABG pO2 ABG pO2 ABG HCO3 ABG Base Excess ABG Hemoglobin ABG Oxyhemoglobin ABG Potassium ABG Chloride ABG Glucose Oxyhemoglobin Carboxyhemoglobin Sodium Potassium Chloride Carbon Dioxide BUN Creatinine Glucose POC Glucose Lactic Acid 7.20 H* Calcium Magnesium Ferritin 1995.0 H AST ALT Lactate Dehydrogenase Total Creatine Kinase Troponin T 0.174 H* D C-Reactive Protein Total Protein Albumin HDL Cholesterol Arterial Blood Glucose Arterial Blood Ionized Calcium Urine WBC (Auto) Salicylates Acetaminophen 09/09/20 09/09/20 09/10/20 17:05 Unknown 04:19 WBC RBC Hgb Hct MCV MCHC Lymph % (Auto) Lymph # (Auto) Seg Neutrophils % Seg Neuts % (Manual) Lymphocytes % (Manual) Nucleated RBC % Seg Neutrophils # PT INR APTT D-Dimer ABG pH 7.278 L 7.497 H POC ABG pCO2 25.0 L POC ABG pO2 ABG pO2 143.7 H ABG HCO3 17.9 L ABG Base Excess -8.3 L ABG Hemoglobin 11.6 L ABG Oxyhemoglobin ABG Potassium ABG Chloride 112.0 H ABG Glucose 113 H Oxyhemoglobin Carboxyhemoglobin 0.3 L Sodium Potassium Chloride Carbon Dioxide BUN Creatinine Glucose POC Glucose Lactic Acid Calcium Magnesium Ferritin AST ALT Lactate Dehydrogenase Total Creatine Kinase Troponin T C-Reactive Protein Total Protein Albumin HDL Cholesterol Arterial Blood Glucose 113 H Arterial Blood Ionized Calcium Urine WBC (Auto) 7.0 H Salicylates Acetaminophen 09/10/20 09/10/20 09/10/20 04:42 04:42 04:42 WBC RBC 3.64 L Hgb Hct MCV MCHC 35 H Lymph % (Auto) 11.0 L Lymph # (Auto) 0.9 L Seg Neutrophils % 82.7 H Seg Neuts % (Manual) Lymphocytes % (Manual) Nucleated RBC % Seg Neutrophils # PT INR APTT D-Dimer ABG pH POC ABG pCO2 POC ABG pO2 ABG pO2 ABG HCO3 ABG Base Excess ABG Hemoglobin ABG Oxyhemoglobin ABG Potassium ABG Chloride ABG Glucose Oxyhemoglobin Carboxyhemoglobin Sodium Potassium 3.5 L D Chloride 108.4 H Carbon Dioxide BUN 33 H Creatinine 1.5 H Glucose 107 H POC Glucose Lactic Acid 2.20 H* Calcium 7.2 L D Magnesium Ferritin AST 220 H ALT 117 H Lactate Dehydrogenase Total Creatine Kinase Troponin T C-Reactive Protein Total Protein 5.5 L Albumin 3.0 L HDL Cholesterol Arterial Blood Glucose Arterial Blood Ionized Calcium Urine WBC (Auto) Salicylates Acetaminophen 09/10/20 09/11/20 09/11/20 10:34 00:46 03:08 WBC RBC Hgb Hct MCV MCHC Lymph % (Auto) Lymph # (Auto) Seg Neutrophils % Seg Neuts % (Manual) Lymphocytes % (Manual) Nucleated RBC % Seg Neutrophils # PT INR APTT D-Dimer ABG pH 7.521 H POC ABG pCO2 25.2 L POC ABG pO2 137.4 H ABG pO2 ABG HCO3 ABG Base Excess ABG Hemoglobin 10.2 L ABG Oxyhemoglobin 98.1 H ABG Potassium 3.1 L ABG Chloride 116.0 H ABG Glucose 123 H Oxyhemoglobin Carboxyhemoglobin Sodium Potassium Chloride Carbon Dioxide BUN Creatinine Glucose POC Glucose 124 H Lactic Acid 2.40 H* Calcium Magnesium Ferritin AST ALT Lactate Dehydrogenase Total Creatine Kinase Troponin T C-Reactive Protein Total Protein Albumin HDL Cholesterol Arterial Blood Glucose 123 H Arterial Blood Ionized Calcium 4.3 L Urine WBC (Auto) Salicylates Acetaminophen 09/11/20 09/11/20 09/11/20 10:04 10:04 12:00 WBC 16.7 H RBC 3.33 L Hgb Hct MCV MCHC Lymph % (Auto) Lymph # (Auto) Seg Neutrophils % Seg Neuts % (Manual) Lymphocytes % (Manual) Nucleated RBC % Seg Neutrophils # PT INR APTT D-Dimer ABG pH POC ABG pCO2 POC ABG pO2 ABG pO2 ABG HCO3 ABG Base Excess ABG Hemoglobin ABG Oxyhemoglobin ABG Potassium ABG Chloride ABG Glucose Oxyhemoglobin Carboxyhemoglobin Sodium 147 H Potassium 3.3 L Chloride 115.6 H Carbon Dioxide BUN 24 H Creatinine Glucose 110 H POC Glucose 122 H Lactic Acid Calcium 8.1 L Magnesium Ferritin AST ALT Lactate Dehydrogenase Total Creatine Kinase Troponin T C-Reactive Protein Total Protein Albumin HDL Cholesterol Arterial Blood Glucose Arterial Blood Ionized Calcium Urine WBC (Auto) Salicylates Acetaminophen 09/11/20 09/11/20 09/11/20 17:20 17:48 23:23 WBC RBC Hgb Hct MCV MCHC Lymph % (Auto) Lymph # (Auto) Seg Neutrophils % Seg Neuts % (Manual) Lymphocytes % (Manual) Nucleated RBC % Seg Neutrophils # PT INR APTT D-Dimer ABG pH 7.295 L POC ABG pCO2 POC ABG pO2 ABG pO2 ABG HCO3 ABG Base Excess ABG Hemoglobin 11.6 L ABG Oxyhemoglobin ABG Potassium ABG Chloride 113.0 H ABG Glucose 104 H Oxyhemoglobin Carboxyhemoglobin 0.1 L Sodium Potassium Chloride Carbon Dioxide BUN Creatinine Glucose POC Glucose 117 H 111 H Lactic Acid Calcium Magnesium Ferritin AST ALT Lactate Dehydrogenase Total Creatine Kinase Troponin T C-Reactive Protein Total Protein Albumin HDL Cholesterol Arterial Blood Glucose 104 H Arterial Blood Ionized Calcium Urine WBC (Auto) Salicylates Acetaminophen 09/11/20 09/12/20 09/12/20 Unknown 01:44 02:25 WBC RBC Hgb Hct MCV MCHC Lymph % (Auto) Lymph # (Auto) Seg Neutrophils % Seg Neuts % (Manual) Lymphocytes % (Manual) Nucleated RBC % Seg Neutrophils # PT INR APTT D-Dimer ABG pH POC ABG pCO2 POC ABG pO2 42.9 L 118.0 H ABG pO2 ABG HCO3 ABG Base Excess ABG Hemoglobin 9.9 L 9.9 L ABG Oxyhemoglobin 78.9 L ABG Potassium ABG Chloride 117.0 H 116.0 H ABG Glucose 112 H 114 H Oxyhemoglobin Carboxyhemoglobin 0.3 L 0.3 L Sodium Potassium Chloride Carbon Dioxide BUN Creatinine Glucose POC Glucose Lactic Acid Calcium Magnesium 2.50 H Ferritin AST ALT Lactate Dehydrogenase Total Creatine Kinase Troponin T C-Reactive Protein Total Protein Albumin HDL Cholesterol Arterial Blood Glucose 112 H 114 H Arterial Blood Ionized Calcium Urine WBC (Auto) Salicylates Acetaminophen 09/12/20 09/12/20 09/12/20 04:56 05:15 13:28 WBC RBC Hgb Hct MCV MCHC Lymph % (Auto) Lymph # (Auto) Seg Neutrophils % Seg Neuts % (Manual) Lymphocytes % (Manual) Nucleated RBC % Seg Neutrophils # PT INR APTT D-Dimer ABG pH POC ABG pCO2 POC ABG pO2 ABG pO2 ABG HCO3 ABG Base Excess ABG Hemoglobin ABG Oxyhemoglobin ABG Potassium ABG Chloride ABG Glucose Oxyhemoglobin Carboxyhemoglobin Sodium 150 H Potassium Chloride 118.1 H Carbon Dioxide BUN 22 H Creatinine Glucose 113 H POC Glucose 107 H Lactic Acid Calcium Magnesium Ferritin AST ALT Lactate Dehydrogenase Total Creatine Kinase Troponin T 0.160 H* C-Reactive Protein Total Protein Albumin HDL Cholesterol Arterial Blood Glucose Arterial Blood Ionized Calcium Urine WBC (Auto) Salicylates Acetaminophen 09/12/20 09/13/20 09/13/20 16:41 03:38 04:45 WBC RBC 3.20 L Hgb 9.9 L Hct 29.7 L MCV MCHC Lymph % (Auto) Lymph # (Auto) Seg Neutrophils % 76.7 H Seg Neuts % (Manual) Lymphocytes % (Manual) Nucleated RBC % Seg Neutrophils # 8.5 H PT INR APTT D-Dimer ABG pH POC ABG pCO2 POC ABG pO2 ABG pO2 ABG HCO3 ABG Base Excess ABG Hemoglobin 10.3 L ABG Oxyhemoglobin ABG Potassium ABG Chloride 111.0 H ABG Glucose 115 H Oxyhemoglobin Carboxyhemoglobin 0.3 L Sodium Potassium Chloride Carbon Dioxide BUN Creatinine Glucose POC Glucose 114 H Lactic Acid Calcium Magnesium Ferritin AST ALT Lactate Dehydrogenase Total Creatine Kinase Troponin T C-Reactive Protein Total Protein Albumin HDL Cholesterol Arterial Blood Glucose 115 H Arterial Blood Ionized Calcium 4.5 L Urine WBC (Auto) Salicylates Acetaminophen 09/13/20 09/13/20 09/13/20 04:45 04:47 11:30 WBC RBC Hgb Hct MCV MCHC Lymph % (Auto) Lymph # (Auto) Seg Neutrophils % Seg Neuts % (Manual) Lymphocytes % (Manual) Nucleated RBC % Seg Neutrophils # PT INR APTT D-Dimer ABG pH POC ABG pCO2 POC ABG pO2 ABG pO2 ABG HCO3 ABG Base Excess ABG Hemoglobin ABG Oxyhemoglobin ABG Potassium ABG Chloride ABG Glucose Oxyhemoglobin Carboxyhemoglobin Sodium 146 H Potassium Chloride 111.5 H Carbon Dioxide BUN 19 H Creatinine Glucose 112 H POC Glucose 112 H 120 H Lactic Acid Calcium 8.0 L Magnesium Ferritin AST ALT Lactate Dehydrogenase Total Creatine Kinase Troponin T C-Reactive Protein Total Protein Albumin HDL Cholesterol Arterial Blood Glucose Arterial Blood Ionized Calcium Urine WBC (Auto) Salicylates Acetaminophen 09/13/20 09/13/20 09/14/20 15:50 23:55 04:37 WBC RBC Hgb Hct MCV MCHC Lymph % (Auto) Lymph # (Auto) Seg Neutrophils % Seg Neuts % (Manual) Lymphocytes % (Manual) Nucleated RBC % Seg Neutrophils # PT INR APTT D-Dimer ABG pH POC ABG pCO2 POC ABG pO2 ABG pO2 ABG HCO3 ABG Base Excess ABG Hemoglobin 10.8 L ABG Oxyhemoglobin ABG Potassium ABG Chloride ABG Glucose Oxyhemoglobin Carboxyhemoglobin 0.2 L Sodium Potassium Chloride Carbon Dioxide BUN Creatinine Glucose 110 H POC Glucose 117 H Lactic Acid Calcium 7.8 L Magnesium Ferritin AST ALT Lactate Dehydrogenase Total Creatine Kinase Troponin T C-Reactive Protein Total Protein Albumin HDL Cholesterol Arterial Blood Glucose Arterial Blood Ionized Calcium Urine WBC (Auto) Salicylates Acetaminophen 09/14/20 11:30 WBC RBC Hgb Hct MCV MCHC Lymph % (Auto) Lymph # (Auto) Seg Neutrophils % Seg Neuts % (Manual) Lymphocytes % (Manual) Nucleated RBC % Seg Neutrophils # PT INR APTT D-Dimer ABG pH POC ABG pCO2 POC ABG pO2 ABG pO2 ABG HCO3 ABG Base Excess ABG Hemoglobin ABG Oxyhemoglobin ABG Potassium ABG Chloride ABG Glucose Oxyhemoglobin Carboxyhemoglobin Sodium Potassium Chloride Carbon Dioxide BUN Creatinine Glucose POC Glucose 107 H Lactic Acid Calcium Magnesium Ferritin AST ALT Lactate Dehydrogenase Total Creatine Kinase Troponin T C-Reactive Protein Total Protein Albumin HDL Cholesterol Arterial Blood Glucose Arterial Blood Ionized Calcium Urine WBC (Auto) Salicylates Acetaminophen Allied health notes reviewed: RT
[2020-09-15] MEDS: AMPICILLIN/SULBACTA 1.5GM/50ML 1.5 GM/50 ML BAG IV SCH ×6 (04:02→23:14)
[2020-09-15] MEDS: DEXTROSE 5% IN WATER 1,000 ML IV SCH (04:02)
[2020-09-15] MEDS: FAMOTIDINE 20 MG TAB PO SCH ×3 (04:03→22:09)
[2020-09-15] MEDS: SENNOSIDES/DOCUSATE SODIUM 8.6/50 MG TAB FEEDTUBE SCH ×3 (04:03→22:09)
[2020-09-15] MEDS: SERTRALINE 50 MG TAB PO SCH ×3 (04:03→22:08)
[2020-09-15] MEDS: HEPARIN 5,000 UNIT/1 ML VIAL SUB-Q SCH (09:14)
--- NOTE | 2020-09-15 10:51 | Progress Note ---
Assessment and Plan Status post cardiac arrest Elevated troponin Prolong QT * Post arrest 12 lead EKG shows Sinus 77 with prolonged QTc 639. Continue to monitor on tele. * 09/12/2011- 12 Lead EKG shows Prolong QT but with improvement QT 541 * 09/12/2020 EKG in not significantly different with QTc of 541 * 09/15/2020 EKG prolongation improving with QTc 493. Repeat EKG, Check Mg+ * Avoid QT prolonging medications * Plan for LHC in the AM. NPO after midnight * Echo 09/11/2020 -EF 50 to 55%, left ventricle is mildly dilated, right ventricular systolic function is normal, left and right atrium normal size Acute hypoxic respiratory failure Sepsis * Patient is now extubated * Pulmonology following Anoxic Brain injury * Neuro consulted * MRI Pending Substance Use * Patient tested positive for marijuana and cocaine * No beta blockers DVT Prophylaxis * Manage per primary team * Patient on Heparin SQ LHC in the AM. NPO after midnight Patient seen in conjunction with who agrees with this plan of care. Will continue to follow - Patient Problems (1) Acute hypoxemic respiratory failure Current Visit: Yes Status: Acute (2) Anoxic brain injury Current Visit: Yes Status: Acute (3) Cardiac arrest Current Visit: Yes Status: Acute (4) Cardiac arrest with successful resuscitation Current Visit: Yes Status: Acute (5) Cocaine abuse Current Visit: Yes Status: Acute (6) DVT prophylaxis Current Visit: Yes Status: Acute (7) Marijuana use Current Visit: Yes Status: Acute (8) Metabolic acidosis Current Visit: Yes Status: Acute (9) Sepsis Current Visit: Yes Status: Acute (10) Toxic metabolic encephalopathy Current Visit: Yes Status: Acute Subjective Date of service: 09/15/20 Principal diagnosis: Acute hypoxemic resp failure; Cardiac arrest with ROSC; Pneumonia; ANGELICA Interval history: Patient is now extubated. Sinus rhythms 70s with no events on monitor Objective Vital Signs Temp Pulse Pulse Resp BP Pulse Ox 09/15/20 10:35 97 09/15/20 10:00 84 18 123/77 99 09/15/20 09:30 71 21 120/74 96 09/15/20 09:00 77 17 120/66 100 09/15/20 08:30 74 18 122/69 100 09/15/20 08:00 80 72 17 120/75 100 09/15/20 07:30 75 18 122/70 100 09/15/20 07:29 98.2 F 09/15/20 07:00 74 16 116/72 100 09/15/20 06:30 79 18 127/74 100 09/15/20 06:00 75 18 129/68 100 09/15/20 05:30 76 16 128/71 100 09/15/20 05:00 77 17 130/79 100 09/15/20 04:30 74 19 139/73 09/15/20 04:00 78 77 13 126/81 100 09/15/20 03:30 81 31 H 141/100 99 09/15/20 03:12 98.8 F 09/15/20 03:00 81 13 123/85 100 09/15/20 02:30 79 17 141/81 100 09/15/20 02:00 80 16 148/85 98 09/15/20 01:30 72 21 137/96 98 09/15/20 01:00 75 19 129/87 99 09/15/20 00:30 78 17 144/82 99 09/15/20 00:00 77 78 20 132/86 99 09/14/20 23:49 98.3 F 09/14/20 23:46 97.9 F 09/14/20 23:36 81 15 142/85 98 09/14/20 23:30 86 15 142/85 98 09/14/20 23:00 76 19 142/90 98 09/14/20 22:30 89 26 H 126/90 97 09/14/20 22:00 76 19 133/91 98 09/14/20 21:30 74 17 137/86 99 09/14/20 21:00 69 19 127/84 99 09/14/20 20:30 80 21 153/84 09/14/20 20:00 80 77 35 H 145/90 100 09/14/20 19:49 97.9 F 09/14/20 19:46 100 09/14/20 19:30 77 21 139/87 100 09/14/20 19:00 77 18 141/90 100 09/14/20 18:30 79 18 142/92 95 09/14/20 18:00 76 17 132/80 09/14/20 17:30 80 18 124/79 09/14/20 17:00 81 18 135/84 09/14/20 16:30 77 18 124/83 09/14/20 16:15 99 09/14/20 16:00 98.9 F 89 16 145/98 96 09/14/20 15:30 84 16 140/77 96 09/14/20 15:00 77 21 132/77 97 09/14/20 14:30 80 20 140/87 100 09/14/20 14:00 75 19 130/80 100 09/14/20 13:30 85 13 132/82 100 09/14/20 13:00 79 24 152/87 09/14/20 12:30 100 H 25 H 148/83 100 09/14/20 12:25 98 09/14/20 12:10 97 09/14/20 12:00 78 17 137/81 97 09/14/20 11:50 77 17 136/76 99 09/14/20 11:45 98.1 F 09/14/20 11:30 73 16 136/76 99 09/14/20 11:00 85 21 142/70 99 - Physical Examination General: No Apparent Distress HEENT: Positive: Normocephaly Neck: Positive: trachea midline Cardiac: Positive: Reg Rate and Rhythm Lungs: Positive: Decreased Breath Sounds Neuro: Positive: Grossly Intact Abdomen: Positive: Soft, Active Bowel Sounds Skin: Negative: Rash, Suspicious Lesions Extremities: Present: upper extr. pulses, lower extr. pulses, edema - Imaging and Cardiology EKG: report reviewed, image reviewed Echo: report reviewed - Telemetry EKG Rhythm: Sinus Rhythm - EKG Sinus rhythms and dysrhythmias: sinus rhythm Repolarization changes or abnormalities: Q-T interval prolongation - Allied health notes Allied health notes reviewed: RT
--- NOTE | 2020-09-15 11:22 | Progress Note ---
Assessment and Plan Acute hypoxemic respiratory failure on MVS Cardiac arrest with return of spontaneous circulation Bilateral pneumonia Person under investigation for COVID-19 infection Obesity Drug abuse and overdose Severe metabolic acidosis Hypercapnia Hyperkalemia Acute kidney injury, possibly on chronic Lactic acidosis Elevated serum ferritin Elevated serum troponin Oropharyngeal dysphagia - prn supplemental oxygen to keep O2 sats > 90% - prn bronchodilators (IVA) with pulm hygiene per RT - continue to avoid nephrotoxins, renally dose all medications - continue mobility protocols to prevent pressure ulcers - PT/OT as tolerated - Wound care per RN/WCT - continue accuchecks with glycemic control per SSI for target blood glucose < 180 mg/dL - tobacco abstinence strongly counseled at the bedside - home oxygen evaluation at discharge - GI & VTE prophylaxis - Flu & pneumovax per protocol - prn analgesia per pain score - continue other care per attending / other consultants ... re-evaluate in am & prn ... transfer out of ICU Subjective Date of service: 09/15/20 Principal diagnosis: Acute hypoxemic resp failure; Cardiac arrest with ROSC; Pneumonia; ANGELICA Interval history: Patient is seen today for: Acute hypoxemic respiratory failure; Cardiac arrest with ROSC; Pneumonia; ANGELICA Seen and examined at bedside; 24hour events reviewed; nursing and respiratory care staff consulted; no adverse overnight events reported to me; resting in bed; extubated and doing so much better; following commands appropriately; denies chest pains; no N/V/F/C Objective Vital Signs - 12hr 09/14/20 09/14/20 09/14/20 23:30 23:36 23:46 Temperature 97.9 F Pulse Rate 86 81 Pulse Rate [ From Monitor] Respiratory 15 15 Rate Blood Pressure 142/85 142/85 O2 Sat by Pulse 98 98 Oximetry 09/14/20 09/15/20 09/15/20 23:49 00:00 00:30 Temperature 98.3 F Pulse Rate 77 78 Pulse Rate [ 78 From Monitor] Respiratory 20 17 Rate Blood Pressure 132/86 144/82 O2 Sat by Pulse 99 99 Oximetry 09/15/20 09/15/20 09/15/20 01:00 01:30 02:00 Temperature Pulse Rate 75 72 80 Pulse Rate [ From Monitor] Respiratory 19 21 16 Rate Blood Pressure 129/87 137/96 148/85 O2 Sat by Pulse 99 98 98 Oximetry 09/15/20 09/15/2021 02:30 03:00 03:12 Temperature 98.8 F Pulse Rate 79 81 Pulse Rate [ From Monitor] Respiratory 17 13 Rate Blood Pressure 141/81 123/85 O2 Sat by Pulse 100 100 Oximetry 09/15/20 09/15/20 09/15/20 03:30 04:00 04:30 Temperature Pulse Rate 81 78 74 Pulse Rate [ 77 From Monitor] Respiratory 31 H 13 19 Rate Blood Pressure 141/100 126/81 139/73 O2 Sat by Pulse 99 100 Oximetry 09/15/20 09/15/20 09/15/20 05:00 05:30 06:00 Temperature Pulse Rate 77 76 75 Pulse Rate [ From Monitor] Respiratory 17 16 18 Rate Blood Pressure 130/79 128/71 129/68 O2 Sat by Pulse 100 100 100 Oximetry 09/15/20 09/15/20 09/15/20 06:30 07:00 07:29 Temperature 98.2 F Pulse Rate 79 74 Pulse Rate [ From Monitor] Respiratory 18 16 Rate Blood Pressure 127/74 116/72 O2 Sat by Pulse 100 100 Oximetry 09/15/20 09/15/20 09/15/20 07:30 08:00 08:30 Temperature Pulse Rate 75 80 74 Pulse Rate [ 72 From Monitor] Respiratory 18 17 18 Rate Blood Pressure 122/70 120/75 122/69 O2 Sat by Pulse 100 100 100 Oximetry 09/15/20 09/15/20 09/15/20 09:00 09:30 10:00 Temperature Pulse Rate 77 71 84 Pulse Rate [ From Monitor] Respiratory 17 21 18 Rate Blood Pressure 120/66 120/74 123/77 O2 Sat by Pulse 100 96 99 Oximetry 09/15/20 10:35 Temperature Pulse Rate Pulse Rate [ From Monitor] Respiratory Rate Blood Pressure O2 Sat by Pulse 97 Oximetry Constitutional: no acute distress Eyes: non-icteric ENT: oropharynx moist Neck: supple, no lymphadenopathy, no JVD Effort: normal Ascultation: Bilateral: clear Percussion: Bilateral: not dull Cardiovascular: regular rate and rhythm Gastrointestinal: normoactive bowel sounds, soft, non-tender, non-distended (protuberant) Integumentary: normal Extremities: no cyanosis, no edema, pulses normal, no ischemia or petechiae Neurologic: non-focal exam (grossly), pupils equal and round, motor strength normal and Psychiatric: mood appropriate, affect normal CBC and BMP: 09/13/20 04:45 09/14/20 04:37 ABG, PT/INR, D-dimer: ABG ABG pH 7.347 (7.320-7.450) 09/13/20 15:50 POC ABG pCO2 41.9 mmHg (32.0-48.0) 09/13/20 15:50 ABG pCO2 39.1 mm Hg 09/09/20 17:05 POC ABG pO2 86.7 mmHg (83-108) 09/13/20 15:50 ABG pO2 143.7 mm Hg (80.0-90.0) H 09/09/20 17:05 POC ABG HCO3 22.5 09/13/20 15:50 ABG O2 Saturation 96.1 (0-100) 09/13/20 15:50 PT/INR, D-dimer PT 19.2 Sec. (12.2-14.9) H 09/09/20 10:42 INR 1.57 (0.87-1.13) H 09/09/20 10:42 D-Dimer 5936.95 ng/mlDDU (0-234) H 09/09/20 14:31 Abnormal lab findings: Abnormal Labs 09/09/20 09/09/20 09/09/20 10:42 10:42 10:42 WBC RBC Hgb Hct MCV 100 H MCHC Lymph % (Auto) Lymph # (Auto) Seg Neutrophils % Seg Neuts % (Manual) 33.0 L Lymphocytes % (Manual) 41.0 H Nucleated RBC % 1.0 H Seg Neutrophils # PT 19.2 H INR 1.57 H APTT 42.5 H D-Dimer ABG pH POC ABG pCO2 POC ABG pO2 ABG pO2 ABG HCO3 ABG Base Excess ABG Hemoglobin ABG Oxyhemoglobin ABG Potassium ABG Chloride ABG Glucose Oxyhemoglobin Carboxyhemoglobin Sodium Potassium 5.4 H Chloride Carbon Dioxide 17 L BUN 25 H Creatinine 2.5 H Glucose 205 H POC Glucose Lactic Acid Calcium Magnesium Ferritin AST 60 H ALT Lactate Dehydrogenase Total Creatine Kinase Troponin T 0.092 H C-Reactive Protein Total Protein 5.3 L Albumin 3.0 L HDL Cholesterol Arterial Blood Glucose Arterial Blood Ionized Calcium Urine WBC (Auto) Salicylates Acetaminophen 09/09/20 09/09/20 09/09/20 10:42 10:42 10:42 WBC RBC Hgb Hct MCV MCHC Lymph % (Auto) Lymph # (Auto) Seg Neutrophils % Seg Neuts % (Manual) Lymphocytes % (Manual) Nucleated RBC % Seg Neutrophils # PT INR APTT D-Dimer ABG pH POC ABG pCO2 POC ABG pO2 ABG pO2 ABG HCO3 ABG Base Excess ABG Hemoglobin ABG Oxyhemoglobin ABG Potassium ABG Chloride ABG Glucose Oxyhemoglobin Carboxyhemoglobin Sodium Potassium Chloride Carbon Dioxide BUN Creatinine Glucose POC Glucose Lactic Acid 16.60 H* Calcium Magnesium 3.30 H Ferritin AST ALT Lactate Dehydrogenase Total Creatine Kinase 166 H Troponin T C-Reactive Protein Total Protein Albumin HDL Cholesterol Arterial Blood Glucose Arterial Blood Ionized Calcium Urine WBC (Auto) Salicylates Acetaminophen 09/09/20 09/09/20 09/09/20 10:42 10:42 11:30 WBC RBC Hgb Hct MCV MCHC Lymph % (Auto) Lymph # (Auto) Seg Neutrophils % Seg Neuts % (Manual) Lymphocytes % (Manual) Nucleated RBC % Seg Neutrophils # PT INR APTT D-Dimer ABG pH 6.919 L* POC ABG pCO2 POC ABG pO2 ABG pO2 127.2 H ABG HCO3 10.3 L ABG Base Excess -21.7 L ABG Hemoglobin 10.8 L ABG Oxyhemoglobin ABG Potassium ABG Chloride ABG Glucose Oxyhemoglobin 94.2 L Carboxyhemoglobin Sodium Potassium Chloride Carbon Dioxide BUN Creatinine Glucose POC Glucose Lactic Acid Calcium Magnesium Ferritin AST ALT Lactate Dehydrogenase Total Creatine Kinase Troponin T C-Reactive Protein Total Protein Albumin HDL Cholesterol Arterial Blood Glucose Arterial Blood Ionized Calcium Urine WBC (Auto) Salicylates < 0.3 L Acetaminophen 5.0 L 09/09/20 09/09/20 09/09/20 14:31 14:31 14:31 WBC RBC Hgb Hct MCV MCHC Lymph % (Auto) Lymph # (Auto) Seg Neutrophils % Seg Neuts % (Manual) Lymphocytes % (Manual) Nucleated RBC % Seg Neutrophils # PT INR APTT D-Dimer 5936.95 H ABG pH POC ABG pCO2 POC ABG pO2 ABG pO2 ABG HCO3 ABG Base Excess ABG Hemoglobin ABG Oxyhemoglobin ABG Potassium ABG Chloride ABG Glucose Oxyhemoglobin Carboxyhemoglobin Sodium Potassium Chloride Carbon Dioxide BUN Creatinine Glucose POC Glucose Lactic Acid Calcium Magnesium Ferritin AST ALT Lactate Dehydrogenase 513 H Total Creatine Kinase Troponin T 0.140 H* D C-Reactive Protein 3.80 H Total Protein Albumin HDL Cholesterol 31 L Arterial Blood Glucose Arterial Blood Ionized Calcium Urine WBC (Auto) Salicylates Acetaminophen 09/09/20 09/09/20 09/09/20 14:31 14:31 16:39 WBC RBC Hgb Hct MCV MCHC Lymph % (Auto) Lymph # (Auto) Seg Neutrophils % Seg Neuts % (Manual) Lymphocytes % (Manual) Nucleated RBC % Seg Neutrophils # PT INR APTT D-Dimer ABG pH POC ABG pCO2 POC ABG pO2 ABG pO2 ABG HCO3 ABG Base Excess ABG Hemoglobin ABG Oxyhemoglobin ABG Potassium ABG Chloride ABG Glucose Oxyhemoglobin Carboxyhemoglobin Sodium Potassium Chloride Carbon Dioxide BUN Creatinine Glucose POC Glucose Lactic Acid 7.20 H* Calcium Magnesium Ferritin 1995.0 H AST ALT Lactate Dehydrogenase Total Creatine Kinase Troponin T 0.174 H* D C-Reactive Protein Total Protein Albumin HDL Cholesterol Arterial Blood Glucose Arterial Blood Ionized Calcium Urine WBC (Auto) Salicylates Acetaminophen 09/09/20 09/09/20 09/10/20 17:05 Unknown 04:19 WBC RBC Hgb Hct MCV MCHC Lymph % (Auto) Lymph # (Auto) Seg Neutrophils % Seg Neuts % (Manual) Lymphocytes % (Manual) Nucleated RBC % Seg Neutrophils # PT INR APTT D-Dimer ABG pH 7.278 L 7.497 H POC ABG pCO2 25.0 L POC ABG pO2 ABG pO2 143.7 H ABG HCO3 17.9 L ABG Base Excess -8.3 L ABG Hemoglobin 11.6 L ABG Oxyhemoglobin ABG Potassium ABG Chloride 112.0 H ABG Glucose 113 H Oxyhemoglobin Carboxyhemoglobin 0.3 L Sodium Potassium Chloride Carbon Dioxide BUN Creatinine Glucose POC Glucose Lactic Acid Calcium Magnesium Ferritin AST ALT Lactate Dehydrogenase Total Creatine Kinase Troponin T C-Reactive Protein Total Protein Albumin HDL Cholesterol Arterial Blood Glucose 113 H Arterial Blood Ionized Calcium Urine WBC (Auto) 7.0 H Salicylates Acetaminophen 09/10/20 09/10/20 09/10/20 04:42 04:42 04:42 WBC RBC 3.64 L Hgb Hct MCV MCHC 35 H Lymph % (Auto) 11.0 L Lymph # (Auto) 0.9 L Seg Neutrophils % 82.7 H Seg Neuts % (Manual) Lymphocytes % (Manual) Nucleated RBC % Seg Neutrophils # PT INR APTT D-Dimer ABG pH POC ABG pCO2 POC ABG pO2 ABG pO2 ABG HCO3 ABG Base Excess ABG Hemoglobin ABG Oxyhemoglobin ABG Potassium ABG Chloride ABG Glucose Oxyhemoglobin Carboxyhemoglobin Sodium Potassium 3.5 L D Chloride 108.4 H Carbon Dioxide BUN 33 H Creatinine 1.5 H Glucose 107 H POC Glucose Lactic Acid 2.20 H* Calcium 7.2 L D Magnesium Ferritin AST 220 H ALT 117 H Lactate Dehydrogenase Total Creatine Kinase Troponin T C-Reactive Protein Total Protein 5.5 L Albumin 3.0 L HDL Cholesterol Arterial Blood Glucose Arterial Blood Ionized Calcium Urine WBC (Auto) Salicylates Acetaminophen 09/10/20 09/11/20 09/11/20 10:34 00:46 03:08 WBC RBC Hgb Hct MCV MCHC Lymph % (Auto) Lymph # (Auto) Seg Neutrophils % Seg Neuts % (Manual) Lymphocytes % (Manual) Nucleated RBC % Seg Neutrophils # PT INR APTT D-Dimer ABG pH 7.521 H POC ABG pCO2 25.2 L POC ABG pO2 137.4 H ABG pO2 ABG HCO3 ABG Base Excess ABG Hemoglobin 10.2 L ABG Oxyhemoglobin 98.1 H ABG Potassium 3.1 L ABG Chloride 116.0 H ABG Glucose 123 H Oxyhemoglobin Carboxyhemoglobin Sodium Potassium Chloride Carbon Dioxide BUN Creatinine Glucose POC Glucose 124 H Lactic Acid 2.40 H* Calcium Magnesium Ferritin AST ALT Lactate Dehydrogenase Total Creatine Kinase Troponin T C-Reactive Protein Total Protein Albumin HDL Cholesterol Arterial Blood Glucose 123 H Arterial Blood Ionized Calcium 4.3 L Urine WBC (Auto) Salicylates Acetaminophen 09/11/20 09/11/20 09/11/20 10:04 10:04 12:00 WBC 16.7 H RBC 3.33 L Hgb Hct MCV MCHC Lymph % (Auto) Lymph # (Auto) Seg Neutrophils % Seg Neuts % (Manual) Lymphocytes % (Manual) Nucleated RBC % Seg Neutrophils # PT INR APTT D-Dimer ABG pH POC ABG pCO2 POC ABG pO2 ABG pO2 ABG HCO3 ABG Base Excess ABG Hemoglobin ABG Oxyhemoglobin ABG Potassium ABG Chloride ABG Glucose Oxyhemoglobin Carboxyhemoglobin Sodium 147 H Potassium 3.3 L Chloride 115.6 H Carbon Dioxide BUN 24 H Creatinine Glucose 110 H POC Glucose 122 H Lactic Acid Calcium 8.1 L Magnesium Ferritin AST ALT Lactate Dehydrogenase Total Creatine Kinase Troponin T C-Reactive Protein Total Protein Albumin HDL Cholesterol Arterial Blood Glucose Arterial Blood Ionized Calcium Urine WBC (Auto) Salicylates Acetaminophen 09/11/20 09/11/20 09/11/20 17:20 17:48 23:23 WBC RBC Hgb Hct MCV MCHC Lymph % (Auto) Lymph # (Auto) Seg Neutrophils % Seg Neuts % (Manual) Lymphocytes % (Manual) Nucleated RBC % Seg Neutrophils # PT INR APTT D-Dimer ABG pH 7.295 L POC ABG pCO2 POC ABG pO2 ABG pO2 ABG HCO3 ABG Base Excess ABG Hemoglobin 11.6 L ABG Oxyhemoglobin ABG Potassium ABG Chloride 113.0 H ABG Glucose 104 H Oxyhemoglobin Carboxyhemoglobin 0.1 L Sodium Potassium Chloride Carbon Dioxide BUN Creatinine Glucose POC Glucose 117 H 111 H Lactic Acid Calcium Magnesium Ferritin AST ALT Lactate Dehydrogenase Total Creatine Kinase Troponin T C-Reactive Protein Total Protein Albumin HDL Cholesterol Arterial Blood Glucose 104 H Arterial Blood Ionized Calcium Urine WBC (Auto) Salicylates Acetaminophen 09/11/20 09/12/20 09/12/20 Unknown 01:44 02:25 WBC RBC Hgb Hct MCV MCHC Lymph % (Auto) Lymph # (Auto) Seg Neutrophils % Seg Neuts % (Manual) Lymphocytes % (Manual) Nucleated RBC % Seg Neutrophils # PT INR APTT D-Dimer ABG pH POC ABG pCO2 POC ABG pO2 42.9 L 118.0 H ABG pO2 ABG HCO3 ABG Base Excess ABG Hemoglobin 9.9 L 9.9 L ABG Oxyhemoglobin 78.9 L ABG Potassium ABG Chloride 117.0 H 116.0 H ABG Glucose 112 H 114 H Oxyhemoglobin Carboxyhemoglobin 0.3 L 0.3 L Sodium Potassium Chloride Carbon Dioxide BUN Creatinine Glucose POC Glucose Lactic Acid Calcium Magnesium 2.50 H Ferritin AST ALT Lactate Dehydrogenase Total Creatine Kinase Troponin T C-Reactive Protein Total Protein Albumin HDL Cholesterol Arterial Blood Glucose 112 H 114 H Arterial Blood Ionized Calcium Urine WBC (Auto) Salicylates Acetaminophen 09/12/20 09/12/20 09/12/20 04:56 05:15 13:28 WBC RBC Hgb Hct MCV MCHC Lymph % (Auto) Lymph # (Auto) Seg Neutrophils % Seg Neuts % (Manual) Lymphocytes % (Manual) Nucleated RBC % Seg Neutrophils # PT INR APTT D-Dimer ABG pH POC ABG pCO2 POC ABG pO2 ABG pO2 ABG HCO3 ABG Base Excess ABG Hemoglobin ABG Oxyhemoglobin ABG Potassium ABG Chloride ABG Glucose Oxyhemoglobin Carboxyhemoglobin Sodium 150 H Potassium Chloride 118.1 H Carbon Dioxide BUN 22 H Creatinine Glucose 113 H POC Glucose 107 H Lactic Acid Calcium Magnesium Ferritin AST ALT Lactate Dehydrogenase Total Creatine Kinase Troponin T 0.160 H* C-Reactive Protein Total Protein Albumin HDL Cholesterol Arterial Blood Glucose Arterial Blood Ionized Calcium Urine WBC (Auto) Salicylates Acetaminophen 09/12/20 09/13/20 09/13/20 16:41 03:38 04:45 WBC RBC 3.20 L Hgb 9.9 L Hct 29.7 L MCV MCHC Lymph % (Auto) Lymph # (Auto) Seg Neutrophils % 76.7 H Seg Neuts % (Manual) Lymphocytes % (Manual) Nucleated RBC % Seg Neutrophils # 8.5 H PT INR APTT D-Dimer ABG pH POC ABG pCO2 POC ABG pO2 ABG pO2 ABG HCO3 ABG Base Excess ABG Hemoglobin 10.3 L ABG Oxyhemoglobin ABG Potassium ABG Chloride 111.0 H ABG Glucose 115 H Oxyhemoglobin Carboxyhemoglobin 0.3 L Sodium Potassium Chloride Carbon Dioxide BUN Creatinine Glucose POC Glucose 114 H Lactic Acid Calcium Magnesium Ferritin AST ALT Lactate Dehydrogenase Total Creatine Kinase Troponin T C-Reactive Protein Total Protein Albumin HDL Cholesterol Arterial Blood Glucose 115 H Arterial Blood Ionized Calcium 4.5 L Urine WBC (Auto) Salicylates Acetaminophen 09/13/20 09/13/20 09/13/20 04:45 04:47 11:30 WBC RBC Hgb Hct MCV MCHC Lymph % (Auto) Lymph # (Auto) Seg Neutrophils % Seg Neuts % (Manual) Lymphocytes % (Manual) Nucleated RBC % Seg Neutrophils # PT INR APTT D-Dimer ABG pH POC ABG pCO2 POC ABG pO2 ABG pO2 ABG HCO3 ABG Base Excess ABG Hemoglobin ABG Oxyhemoglobin ABG Potassium ABG Chloride ABG Glucose Oxyhemoglobin Carboxyhemoglobin Sodium 146 H Potassium Chloride 111.5 H Carbon Dioxide BUN 19 H Creatinine Glucose 112 H POC Glucose 112 H 120 H Lactic Acid Calcium 8.0 L Magnesium Ferritin AST ALT Lactate Dehydrogenase Total Creatine Kinase Troponin T C-Reactive Protein Total Protein Albumin HDL Cholesterol Arterial Blood Glucose Arterial Blood Ionized Calcium Urine WBC (Auto) Salicylates Acetaminophen 09/13/20 09/13/20 09/14/20 15:50 23:55 04:37 WBC RBC Hgb Hct MCV MCHC Lymph % (Auto) Lymph # (Auto) Seg Neutrophils % Seg Neuts % (Manual) Lymphocytes % (Manual) Nucleated RBC % Seg Neutrophils # PT INR APTT D-Dimer ABG pH POC ABG pCO2 POC ABG pO2 ABG pO2 ABG HCO3 ABG Base Excess ABG Hemoglobin 10.8 L ABG Oxyhemoglobin ABG Potassium ABG Chloride ABG Glucose Oxyhemoglobin Carboxyhemoglobin 0.2 L Sodium Potassium Chloride Carbon Dioxide BUN Creatinine Glucose 110 H POC Glucose 117 H Lactic Acid Calcium 7.8 L Magnesium Ferritin AST ALT Lactate Dehydrogenase Total Creatine Kinase Troponin T C-Reactive Protein Total Protein Albumin HDL Cholesterol Arterial Blood Glucose Arterial Blood Ionized Calcium Urine WBC (Auto) Salicylates Acetaminophen 09/14/20 11:30 WBC RBC Hgb Hct MCV MCHC Lymph % (Auto) Lymph # (Auto) Seg Neutrophils % Seg Neuts % (Manual) Lymphocytes % (Manual) Nucleated RBC % Seg Neutrophils # PT INR APTT D-Dimer ABG pH POC ABG pCO2 POC ABG pO2 ABG pO2 ABG HCO3 ABG Base Excess ABG Hemoglobin ABG Oxyhemoglobin ABG Potassium ABG Chloride ABG Glucose Oxyhemoglobin Carboxyhemoglobin Sodium Potassium Chloride Carbon Dioxide BUN Creatinine Glucose POC Glucose 107 H Lactic Acid Calcium Magnesium Ferritin AST ALT Lactate Dehydrogenase Total Creatine Kinase Troponin T C-Reactive Protein Total Protein Albumin HDL Cholesterol Arterial Blood Glucose Arterial Blood Ionized Calcium Urine WBC (Auto) Salicylates Acetaminophen Allied health notes reviewed: nursing
[2020-09-15] MEDS ORDERED: SODIUM CHLORIDE 0.9% 500 ML 500 ML IV SCH (13:00)
--- NOTE | 2020-09-15 18:44 | Progress Note ---
Assessment and Plan 25 YO Female with Asthma, morbid Obesity was bought to ER unresponsive. As per fianc the patient was in her usual state of health overnight while drinking alcohol with concomitant ingestion of ecstasy. Patient was found to be unresponsive in cardiac arrest, EMS was notified, Patient was intubated in the field. Patient initiated on ACLS protocol and subsequently transported to [facility] for further care and evaluation. CXR showed infiltrates, elevated troponin, UDS positive for cocaine/marijuana. Patient admitted to ICU and initiated on sepsis protocol. A/P --Severe Sepsis with shock likely from aspiration PNA cont abx, follow Cx Status post pressor support -- Acute hypoxemic respiratory failure Patient intubated in the field, she self extubated her yesterday -- Metabolic acidosis, resolved likely due to effect from cardiac arrest Status post IV fluid resuscitation therapy, supportive care, monitor lactic acid - trended down -- Toxic metabolic encephalopathy UDS +ve for cocaine/marijuana CT head/MRI brain without any acute findings --S/P Cardiac arrest Patient treated" with ACLS protocol with eventual return of perfusion cardiac rhythm. Cardiology following, 2D echo with preserved EF -- Anoxic brain injury, suspected CT head and MRI brain w/o any acute process follow clinically, neurology following -- Aspiration pneumonia Pneumonia protocol: Chest x-ray, IV antibiotic therapy, supplemental O2 as needed ruled out for COVID with -ve test --Elevated troponin ordered 2d echo, elevated likely from cardiac arrest cardiac consult -- DVT prophylaxis SCD to bilateral lower extremities while in bed, prophylactic anticoagulation --Advance care planning Full code status Daily clinical course: 09/10/20: follow pending COVID test, CC consulted, will follow clinically and wean off from vent and pressor as tolerated. neuro consult. cont iv fluid hydration 09/11/20: negative for covid, cont abx for aspiration PNA. Patient remains intubated, neurology consulted and recommended MRI of the brain. Continue supportive care. Follow BMP for hyponatremia, continue IV fluid hydration with free water with tube feeding. 09/12/20: Cough present, MRI brain without any acute process. Neurology recommending EEG when off sedation. Continue empiric antibiotic for aspiration pneumonia, follow clinically wean off from sedation and ventilator support as tolerated. Continue tube feeding, free water and hypotonic fluid for hypernatremia. 09/13/20: Patient clinically stable, off sedation since this morning. Plan for extubation today if tolerates. Continue to provide supportive care. Sodium level and potassium level normalized. Follow BMP. Continue empiric antibiotics for aspiration pneumonia. 09/14: patient self extubated herself, placed on Ventimask, off sedation and off pressors. Cont to follow 09/15: Remains on Ventimask, transfer pt to telemetry, remains lethargic. Ordered for PT/OT/ST eval. vitals stable Subjective Date of service: 09/15/20 Principal diagnosis: Acute hypoxemic resp failure; Cardiac arrest with ROSC; Pneumonia; ANGELICA Interval history: patient seen and examined patient on ventimask noted vitals and discussed with RN at the bedside patient off levophed, off sedation Objective - Exam Narrative Exam: GENERAL: well-developed and obese -[place] female lying on bed no discomfort. HEENT: Normocephalic. Atraumatic. No conjunctival congestion or icterus. Patient has moist mucous membranes. NECK: Supple. Trachea midline. CHEST/LUNGS: on Ventimask, few rhonchi bilaterally HEART/CARDIOVASCULAR: Regular in rate and rhythm. S1 and S2 positive. ABDOMEN: Abdomen is soft, nontender. Patient has normal bowel sounds. SKIN: There is no rash. Warm and dry. NEURO: off Sedation, moves extremities MUSCULOSKELETAL: No joint effusion or tenderness. EXTRIMITY: No edema, no cyanosis or clubbing. PSYCH: Follow commands - Constitutional Vitals: Vital Signs - 12hr 09/15/20 09/15/20 09/15/20 07:00 07:29 07:30 Temperature 98.2 F Pulse Rate 74 75 Pulse Rate [ From Monitor] Respiratory 16 18 Rate Blood Pressure 116/72 122/70 O2 Sat by Pulse 100 100 Oximetry 09/15/20 09/15/20 09/15/20 08:00 08:30 09:00 Temperature Pulse Rate 80 74 77 Pulse Rate [ 72 From Monitor] Respiratory 17 18 17 Rate Blood Pressure 120/75 122/69 120/66 O2 Sat by Pulse 100 100 100 Oximetry 09/15/20 09/15/20 09/15/20 09:30 10:00 10:30 Temperature Pulse Rate 71 84 72 Pulse Rate [ From Monitor] Respiratory 21 18 19 Rate Blood Pressure 120/74 123/77 125/76 O2 Sat by Pulse 96 99 96 Oximetry 09/15/20 09/15/20 09/15/20 10:35 11:00 11:30 Temperature Pulse Rate 76 80 Pulse Rate [ From Monitor] Respiratory 15 17 Rate Blood Pressure 122/79 114/74 O2 Sat by Pulse 97 99 97 Oximetry 09/15/20 09/15/20 09/15/20 11:53 12:00 12:30 Temperature 99.1 F Pulse Rate 73 86 Pulse Rate [ 75 From Monitor] Respiratory 19 19 Rate Blood Pressure 127/80 136/80 O2 Sat by Pulse 97 99 Oximetry 09/15/20 09/15/20 09/15/20 13:00 13:30 14:00 Temperature Pulse Rate Pulse Rate [ From Monitor] Respiratory Rate Blood Pressure 126/83 115/63 113/75 O2 Sat by Pulse 99 Oximetry 09/15/20 09/15/20 09/15/20 14:30 15:00 15:30 Temperature 99.4 F Pulse Rate 79 76 Pulse Rate [ From Monitor] Respiratory 19 15 Rate Blood Pressure 115/69 109/73 110/71 O2 Sat by Pulse Oximetry 09/15/20 16:00 Temperature Pulse Rate 66 Pulse Rate [ 72 From Monitor] Respiratory 19 Rate Blood Pressure 131/77 O2 Sat by Pulse 100 Oximetry - Labs CBC & Chem 7: 09/16/20 04:17 09/16/20 04:17 HEART Score - HEART Score Troponin: Troponin T 0.160 ng/mL (0.00-0.029) H* 09/12/20 13:28
[2020-09-15] MEDS ORDERED: ENOXAPARIN 40 MG/0.4 ML INJ SUB-Q SCH (22:00)
[2020-09-16] MEDS: AMPICILLIN/SULBACTA 1.5GM/50ML 1.5 GM/50 ML BAG IV SCH ×2 (04:54→13:24)
[2020-09-16 05:09] LABS: Hemoglobin 11.1 gm/dl (10.1-14.3); Mean Corpuscular HGB Conc 35 % (30-34); Mean Corpuscular Volume 90 fl (79-97); Platelet Count 238 K/mm3 (140-440); Red Blood Count 3.55 M/mm3 (3.65-5.03); Red Cell Distribution Width 13.1 % (13.2-15.2)
[2020-09-16 05:20] LABS: Blood Urea Nitrogen 10 mg/dL (7-17); Calcium 8.4 mg/dL (8.4-10.2); Hemolysis Index 11
[2020-09-16 05:29] LABS: BUN/Creatinine Ratio 14
[2020-09-16 05:32] LABS: Partial Thromboplastin Time 29.9 Sec. (24.2-36.6)
[2020-09-16] MEDS: ASPIRIN EC 325 MG TAB PO ONE ×2 (05:46→13:32)
[2020-09-16 06:01] LABS: Total Cells Counted 100
[2020-09-16 06:02] LABS: Platelet Estimate Consistent w Auto; RBC Morphology Normal
[2020-09-16] MEDS ORDERED: SODIUM CHLORIDE 0.9% 250ML 250 ML IV ONE (08:35)
[2020-09-16] MEDS: POTASSIUM CHLORIDE 10 MEQ 10 MEQ/100 ML BAG IV SCH ×3 (09:01→12:53)
[2020-09-16] MEDS: FAMOTIDINE 20 MG TAB PO SCH (09:02)
[2020-09-16] MEDS: SENNOSIDES/DOCUSATE SODIUM 8.6/50 MG TAB FEEDTUBE SCH (09:02)
[2020-09-16] MEDS ORDERED: REGADENOSON 0.4 MG/5 ML INJ IV ONE (09:46)
[2020-09-16] MEDS: SERTRALINE 50 MG TAB PO SCH (10:00)
--- NOTE | 2020-09-16 10:08 | Electrocardiograph Report ---
[facility] Test Date: 2020-09-15 Test Time: 08:03:01 Pat Name: SUNITA DURAND Department: Room: A486 Gender: F Shipper Receiver: ROSALIA : 1995 Requested By: SUSANA RIVAS Order Number: [id number] Reading MD: Rome Saxena Measurements Intervals [place] Rate: 75 P: 26 SD: 141 QRS: -21 QRSD: 104 T: -52 QT: 441 QTc: 493 Interpretive Statements Sinus rhythm Nonspecific T abnormalities, diffuse leads Compared to ECG 09/13/2020 12:23:36 T-wave abnormality now present Early repolarization no longer present Possible ischemia no longer present Prolonged QT interval no longer present Electronically Signed On 09-16-2020 10:08:23 EDT by Rome Saxena
--- NOTE | 2020-09-16 11:19 | Progress Note ---
Assessment and Plan Status post cardiac arrest NSTEMI type 2 Prolong QT * Post arrest 12 lead EKG shows Sinus 77 with prolonged QTc 639. Continue to monitor on tele. * 09/12/2011- 12 Lead EKG shows Prolong QT but with improvement QT 541 * 09/12/2020 EKG in not significantly different with QTc of 541 * 09/15/2020 EKG prolongation improving with QTc 493. Repeat EKG, Check Mg+ * Avoid QT prolonging medications * Echo 09/11/2020 -EF 50 to 55%, left ventricle is mildly dilated, right ventricular systolic function is normal, left and right atrium normal size * LHC canceled due to altered mental status. Spoke with patient's mother who approved for stress test * MPI Lexiscan stress test negative for ischemia Acute hypoxic respiratory failure Sepsis * Patient is now extubated * Pulmonology following Anoxic Brain injury * Neuro consulted Substance Use * Patient tested positive for marijuana and cocaine * Recommended to stop drug use DVT Prophylaxis * Manage per primary team * Patient on Heparin SQ LHC canceled. Patient underwent Lexiscan Stress test which was negative for ischemia. Patient is stable and may be discharged from a cardiac standpoint. Patient may follow up with Dr. Tatum Sumner, [facility], 1-2 weeks after discharge. Patient seen in conjunction with who agrees with this plan of care. Will continue to follow - Patient Problems (1) Acute hypoxemic respiratory failure Current Visit: Yes Status: Acute (2) Anoxic brain injury Current Visit: Yes Status: Acute (3) Cardiac arrest Current Visit: Yes Status: Acute (4) Cardiac arrest with successful resuscitation Current Visit: Yes Status: Acute (5) Cocaine abuse Current Visit: Yes Status: Acute (6) DVT prophylaxis Current Visit: Yes Status: Acute (7) Marijuana use Current Visit: Yes Status: Acute (8) Metabolic acidosis Current Visit: Yes Status: Acute (9) Sepsis Current Visit: Yes Status: Acute (10) Toxic metabolic encephalopathy Current Visit: Yes Status: Acute Subjective Date of service: 09/16/20 Principal diagnosis: Acute hypoxemic resp failure; Cardiac arrest with ROSC; Pneumonia; ANGELICA Interval history: Patient resting in bed with no complaints. Appears slightly altered Sinus rhythms 80s with no events on monitor Objective Last Vital Signs Temp 97.5 F L 08/10/21 08:16 Pulse 85 09/16/20 08:16 Resp 18 09/16/20 08:16 BP 148/95 09/16/20 08:16 Pulse Ox 96 09/16/20 08:16 - Physical Examination General: No Apparent Distress HEENT: Positive: Normocephaly Neck: Positive: trachea midline Cardiac: Positive: Reg Rate and Rhythm Lungs: Positive: Normal Breath Sounds Neuro: Positive: Grossly Intact Abdomen: Positive: Soft, Active Bowel Sounds Skin: Negative: Rash, Suspicious Lesions Extremities: Present: upper extr. pulses, lower extr. pulses. Absent: edema - Labs and Meds Coagulation 09/16/20 Range/Units 04:17 PT 13.7 (12.2-14.9) Sec. INR 1.00 (0.87-1.13) APTT 29.9 (24.2-36.6) Sec. CBC 09/16/20 Range/Units 04:17 WBC 7.6 (4.5-11.0) K/mm3 RBC 3.55 L (3.65-5.03) M/mm3 Hgb 11.1 (10.1-14.3) gm/dl Hct 32.0 (30.3-42.9) % Plt Count 238 (140-440) K/mm3 Comprehensive Metabolic Panel 09/16/20 Range/Units 04:17 Sodium 137 (137-145) mmol/L Potassium 3.1 L D (3.6-5.0) mmol/L Chloride 99.6 (98-107) mmol/L Carbon Dioxide 26 (22-30) mmol/L BUN 10 (7-17) mg/dL Creatinine 0.7 (0.6-1.2) mg/dL Glucose 86 (65-100) mg/dL Calcium 8.4 (8.4-10.2) mg/dL - Imaging and Cardiology EKG: report reviewed, image reviewed Pharmacologic stress test: pending Echo: report reviewed - Telemetry EKG Rhythm: Sinus Rhythm - EKG Sinus rhythms and dysrhythmias: sinus rhythm Repolarization changes or abnormalities: Q-T interval prolongation - Allied health notes Allied health notes reviewed: nursing
[2020-09-16] MEDS ORDERED: POTASSIUM CHLORIDE ER 20 MEQ TAB PO NR ×2 (11:57→15:08)
[2020-09-16 14:30] VITALS: BP 146/96
--- NOTE | 2020-09-16 15:08 | Discharge Summary ---
Providers - Providers Date of Admission: 09/09/20 12:40 Date of discharge: 09/16/20 Attending physician: JASON AVENDAÑO 09/09/20 11:35 Consult to Dietitian/Nutrition [CONS] Routine Physician Instructions: Reason For Exam: Reason for Consult: Evaluate nutritional intake 09/09/20 12:06 Consult to Physician [CONS] Urgent Comment: Consulting Provider: RAHEEM HENDRICKS Physician Instructions: Reason For Exam: s/p cardiac arrest arrest 09/09/20 15:38 Consult to Dietitian/Nutrition [CONS] Routine Physician Instructions: Reason For Exam: Reason for Consult: Write/Manage Tube Feeding 09/10/20 15:42 Consult to Physician [CONS] Urgent Comment: Consulting Provider: JAMSHID WARD Physician Instructions: Reason For Exam: Cardiac Arrest; Acute Encephalopathy 09/11/20 13:05 Consult to Physician [CONS] Routine Comment: parul Oquendo ([employer] INFORMATION CLERK) haris Consulting Provider: SUSANA RIVAS Physician Instructions: Reason For Exam: cardiac arrest 09/13/20 12:41 Consult to Dietitian/Nutrition [CONS] Routine Physician Instructions: Assess nutrtn needs, initiate, modify, manage TF Reason For Exam: Reason for Consult: Write/Manage Tube Feeding Reason for Consult: Write/Manage Tube Feeding 09/15/20 09:25 Speech Therapy Evaluation and Treat [CONS] Routine Reason For Exam: aspiration 09/15/20 18:44 Physical Therapy Evaluation and Treat [CONS] Routine Comment: Reason For Exam: Debility Primary care physician: HYDRO TECHNICIAN Hospitalization Condition: Critical Pertinent studies: CXR, head CT, Brain MRI, MPI stress test, 2d echo Hospital course: 25 YO Female with Asthma, morbid Obesity was bought to ER unresponsive. As per fianc the patient was in her usual state of health overnight while drinking alcohol with concomitant ingestion of ecstasy. Patient was found to be unresponsive in cardiac arrest, EMS was notified, Patient was intubated in the field. Patient initiated on ACLS protocol and subsequently transported to [facility] for further care and evaluation. CXR showed infiltrates, elevated troponin, UDS positive for cocaine/marijuana. Patient admitted to ICU and initiated on sepsis protocol. Daily clinical course: 09/10/20: follow pending COVID test, CC consulted, will follow clinically and wean off from vent and pressor as tolerated. neuro consult. cont iv fluid hydration 09/11/20: negative for covid, cont abx for aspiration PNA. Patient remains intubated, neurology consulted and recommended MRI of the brain. Continue sup portive care. Follow BMP for hyponatremia, continue IV fluid hydration with free water with tube feeding. 09/12/20: Cough present, MRI brain without any acute process. Neurology recommending EEG when off sedation. Continue empiric antibiotic for aspiration pneumonia, follow clinically wean off from sedation and ventilator support as tolerated. Continue tube feeding, free water and hypotonic fluid for hypernatremia. 09/13/20: Patient clinically stable, off sedation since this morning. Plan for extubation today if tolerates. Continue to provide supportive care. Sodium level and potassium level normalized. Follow BMP. Continue empiric antibiotics for aspiration pneumonia. 09/14: patient self extubated herself, placed on Ventimask, off sedation and off pressors. Cont to follow 09/15: Remains on Ventimask, transfer pt to telemetry, remains lethargic. Ordered for PT/OT/ST eval. vitals stable 09/16: Patient on RA, tolerating diet, ambulating. MPI stress test showed no reversible ischemia. patient will be discharge home in stable condition with outpt f/u. A/P --Severe Sepsis with shock likely from aspiration PNA cont abx, neg Cx Status post pressor support -- Acute hypoxemic respiratory failure Patient intubated in the field, she self extubated her on 09/14 -- Metabolic acidosis, resolved likely due to effect from cardiac arrest Status post IV fluid resuscitation therapy, supportive care, monitor lactic acid - trended down -- Toxic metabolic encephalopathy UDS +ve for cocaine/marijuana CT head/MRI brain without any acute findings --S/P Cardiac arrest Patient treated" with ACLS protocol with eventual return of perfusion cardiac rhythm. Cardiology following, 2D echo with preserved EF MPI stress test normal -- Anoxic brain injury, suspected CT head and MRI brain w/o any acute process -- Aspiration pneumonia Pneumonia protocol: Chest x-ray, IV antibiotic therapy, supplemental O2 as needed ruled out for COVID with -ve test --Elevated troponin, elevated likely from cardiac arrest -- DVT prophylaxis SCD to bilateral lower extremities while in bed, prophylactic anticoagulation --Advance care planning Full code status Disposition: - TO HOME OR SELFCARE Final Discharge Diagnosis (Prints w/discharge instructions): --Severe Sepsis with shock. -- Acute hypoxemic respiratory failure. -- Metabolic acidosis, resolved likely due to effect from cardiac arrest. -- Toxic metabolic encephalopathy. --S/P Cardiac arrest. -- Aspiration pneumonia. --Elevated troponin. -- Anoxic brain injury, suspected. --hypokalemia Time spent for discharge: 34 minutes Core Measure Documentation - Palliative Care Palliative Care/ Comfort Measures: Not Applicable - Core Measures Any of the following diagnoses?: none Exam - Physical Exam Narrative exam: GENERAL: well-developed and obese -Gabonese female lying on bed no discomfort. HEENT: Normocephalic. Atraumatic. No conjunctival congestion or icterus. Patient has moist mucous membranes. NECK: Supple. Trachea midline. CHEST/LUNGS: CTABL HEART/CARDIOVASCULAR: Regular in rate and rhythm. S1 and S2 positive. ABDOMEN: Abdomen is soft, nontender. Patient has normal bowel sounds. SKIN: There is no rash. Warm and dry. NEURO: off Sedation, moves extremities MUSCULOSKELETAL: No joint effusion or tenderness. EXTRIMITY: No edema, no cyanosis or clubbing. PSYCH: Follow commands - Constitutional Vitals: Temp Pulse Resp BP Pulse Ox 98.1 F 96 H 18 146/96 98 09/16/20 11:39 09/16/20 11:39 09/16/20 11:39 09/16/20 11:39 09/16/20 12:00 Plan Activity: advance as tolerated Weight Bearing Status: Weight Bear as Tolerated Diet: low fat, low salt Follow up with: RADHA GARCIA MD [Primary Care Provider] - 3-5 Days ANAMARIA AIKEN MD [Staff Physician] - 7 Days Prescriptions: Amoxicillin/K Clav Tab [Augmentin 875MG TAB] 1 each PO Q12HR #7 tablet
[2020-09-16] MEDS ORDERED: AMOXICILLIN/K CLAV 875/125MG TAB PO SCH (16:00)
--- NOTE | 2020-09-17 08:27 | Nuclear Medicine Report ---
APPROVED REPORT Exam: Nuclear Stress Test Indication: Cardiac Arrest Patient Location: [address] [place] [address] Room #: 486 Ht: 5 ft 1 in Wt: 170 lbs BSA: 1.76 m2 HR: 85 bpmBP: 144/85 mmHgBMI: 32.11 Rhythm: NSR Stress Test Details Stress Test: Pharmacologic stress testing performed using 0.4 mg of regadenoson per 5 mL given IV over 10 seconds. HR Resting HR: 85 bpm Max HR Achieved: 121 bpm Max Heart Rate (APMHR): 195.429685 bpm Target HR (85% APMHR): 165.263199 bpm % of APMHR: 62.05 Recovery HR: 112 bpm HR response to stress: Normal HR response to stress BP Resting BP: 144/85 mmHg Max BP: 166/105 mmHg Recovery BP: 163/97 mmHg BP response to stress: Normal blood pressure response to stress. ECG Resting ECG: Sinus Rhythm ST Change: None Arrhythmia: None Clinical Reason for Termination: Completed protocol Stress Symptoms: None NM EXAM: Myocardial Perfusion REST/STRESS Imaging Protocol: Rest Tc-99m/Stress Tc-99m 1 day Resting Data Rest SPECT myocardial perfusion imaging was performed in supine position 45 minutes following the intravenous injection of 10 mCi of Tc-99m Myoview. Time of rest injection: 0830 Pharmacologic Stress Pharmacologic stress test was performed by injecting Regadenoson 0.4 mg IV push followed by the intravenous injection of 28 mCi of Tc-99m Myoview. Time of stress injection: 1041 Gated Stress SPECT was performed 30 minutes after stress injection. The images were gated to evaluate regional wall motion and calculate left ventricular ejection fraction. Study Data TID = 1.04. Perfusion Nuclear Conclusion ECG Findings: negative for ischemia Clinical Findings: negative for ischemia Nuclear Findings: negative for ischemia Exercise Capacity: not assessed Left Ventricular Function: normal Normal study. No scintigraphic evidence for myocardial ischemia or scar. Normal left ventricular size and function with no regional wall motion abnormalities.
== END 2020-09-16 16:49 | disposition home or self-care (01) | DRG 870 ==
LOC: ED 10:35 → CC1 12:40 → 4A 09-15 17:45
PROVIDERS: ADMIT Internal Medicine; ATTEND Internal Medicine
PROC: 4A033R1 Measurement of Arterial Saturation, Peripheral, Percutaneous Approach (ICD-10-PCS; principal; 2020-09-09)
PROC: 5A1955Z Respiratory Ventilation, Greater than 96 Consecutive Hours (ICD-10-PCS; 2020-09-09)
PROC: 0BH17EZ Insertion of Endotracheal Airway into Trachea, Via Natural or Artificial Opening (ICD-10-PCS; 2020-09-09)
PROC: 5A12012 Performance of Cardiac Output, Single, Manual (ICD-10-PCS; 2020-09-09)
DX: A41.9 Sepsis, unspecified organism (principal); I46.9 Cardiac arrest, cause unspecified; J69.0 Pneumonitis due to inhalation of food and vomit; G92 Toxic encephalopathy; J96.01 Acute respiratory failure with hypoxia; R65.21 Severe sepsis with septic shock; I21.A1 Myocardial infarction type 2; G93.1 Anoxic brain damage, not elsewhere classified; E87.2 Acidosis; R57.9 Shock, unspecified; E87.1 Hypo-osmolality and hyponatremia; F14.10 Cocaine abuse, uncomplicated; F19.90 Other psychoactive substance use, unspecified, uncomplicated; Z20.822 Contact with and (suspected) exposure to COVID-19; Z79.899 Other long term (current) drug therapy; Z79.891 Long term (current) use of opiate analgesic; Z79.01 Long term (current) use of anticoagulants; T65.91XA Toxic effect of unspecified substance, accidental (unintentional), initial encounter; Y92.89 Other specified places as the place of occurrence of the external cause; E87.5 Hyperkalemia; R13.12 Dysphagia, oropharyngeal phase; T68.XXXA Hypothermia, initial encounter; Z83.3 Family history of diabetes mellitus; Z82.49 Family history of ischemic heart disease and other diseases of the circulatory system; E66.01 Morbid (severe) obesity due to excess calories; R79.89 Other specified abnormal findings of blood chemistry
CPT/HCPCS: 36415; 36600; 70450; 70551; 71045; 78452; 80048; 80053; 80061; 80307; 80320; 81001; 82140; 82550; 82553; 82728; 82803; 82805; 82947; 82962; 83615; 83735; 84145; 84484; 84703; 85007; 85025; 85027; 85379; 85610; 85730; 86140; 87040; 87070; 87205; 93005; 93017; 93306; 94002; 94003; 94760; 95819; 99291; G0378; A9502; G0480; J0295; J0456; J0696; J1644; J1650; J2704; J2785; J3010; J3475; J3480; J7030; J7042; J7070; U0003

== ENCOUNTER 2020-10-22 22:27 | Emergency (ER) | payer SELFPAY ==
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
[2020-10-22 23:42] LABS: Basophils % (Auto) 0.4 % (0.0-1.8); Eosinophils # (Auto) 0.3 K/mm3 (0.0-0.4); Eosinophils % (Auto) 3.1 % (0.0-4.3); Hematocrit 32.7 % (30.3-42.9); Lymphocytes # (Auto) 3.9 K/mm3 (1.2-5.4); Lymphocytes % (Auto) 42.6 % (13.4-35.0); Mean Corpuscular HGB Conc 34 % (30-34); Mean Corpuscular Volume 91 fl (79-97); Monocytes # (Auto) 0.8 K/mm3 (0.0-0.8); Monocytes % (Auto) 8.4 % (0.0-7.3); Platelet Count 214 K/mm3 (140-440); Red Cell Distribution Width 13.1 % (13.2-15.2)
[2020-10-22 23:45] LABS: Alanine Aminotransferase 23 units/L (7-56); Albumin 3.9 g/dL (3.9-5); Blood Urea Nitrogen 16 mg/dL (7-17); Calcium 8.7 mg/dL (8.4-10.2); Hemolysis Index 3
[2020-10-22 23:59] LABS: BUN/Creatinine Ratio 23
--- NOTE | 2020-10-23 00:33 | XRay Report ---
CHEST 2 VIEWS INDICATION / CLINICAL INFORMATION: CP. COMPARISON: 09/14/2020 FINDINGS: SUPPORT DEVICES: None. HEART / MEDIASTINUM: No significant abnormality. LUNGS / PLEURA: No significant pulmonary or pleural abnormality. No pneumothorax. ADDITIONAL FINDINGS: No significant additional findings. IMPRESSION: 1. No acute findings. Signer Name: Ki Harris MD Signed: 10/23/2020 12:28 AM Workstation Name: [id number]
[2020-10-23 01:07] VITALS: BP 135/91
--- NOTE | 2020-10-24 13:25 | Electrocardiograph Report ---
[facility] Test Date: 2020-10-22 Test Time: 22:40:56 Pat Name: SUNITA DURAND Department: Room: Gender: F Acute Care Registered Nurse: JOS : 1995 Requested By: HA AVILA III Order Number: [id number] Reading MD: Luana Beckwith Measurements Intervals [place] Rate: 68 P: 21 FL: 172 QRS: 32 QRSD: 106 T: -14 QT: 433 QTc: 462 Interpretive Statements Sinus rhythm Compared to ECG 09/15/2020 08:03:01 No significant change Electronically Signed On 10-24-2020 13:25:20 EDT by Luana Beckwith
== END 2020-10-23 01:20 | disposition left against medical advice (07) ==
LOC: ED 22:27
DX: R07.9 Chest pain, unspecified (principal); I25.2 Old myocardial infarction; F10.20 Alcohol dependence, uncomplicated; J45.909 Unspecified asthma, uncomplicated; F12.90 Cannabis use, unspecified, uncomplicated; V89.2XXA Person injured in unspecified motor-vehicle accident, traffic, initial encounter; Y93.89 Activity, other specified; Y92.89 Other specified places as the place of occurrence of the external cause; Y99.8 Other external cause status
CPT/HCPCS: 36415; 71046; 80053; 84484; 84703; 85025; 93005; 99291